=== PATIENT | female | born 1950 | race Caucasian/White ===

== ENCOUNTER → 2016-04-22 | Outpatient (CLI) | payer BC, MEDICARE ==
[2016-04-22 15:20] LABS: ALT 52 U/L (9-52); AST 36 U/L (14-36); Alkaline Phosphatase 114 U/L (38-126); Anion Gap 10 mmol/L; Blood Urea Nitrogen 13 mg/dL (7-17); Calcium 10.3 mg/dL (8.4-10.2); Carbon Dioxide 29 mmol/L (22-30); Chloride 102 mmol/L (98-107); Glucose 121 mg/dL (74-99); Non-African American GFR(MDRD) >60 (>60 ml/min/1.73 sqM); Sodium 141 mmol/L (137-145); Total Bilirubin 0.5 mg/dL (0.2-1.3); Total Protein 7.2 g/dL (6.3-8.2)
--- NOTE | 2016-04-22 15:21 | US ---
EXAMINATION TYPE: US thyroid st tissue head/neck DATE OF EXAM: 04/22/2016 3:04 PM COMPARISON: NONE CLINICAL HISTORY: US. hyperparathyroidism GLAND SIZE: Right Lobe: 4.0 x 1.5 x 1.4cm Overall Parenchyma: heterogenous Left Lobe: 4.7 x 2.0 x 1.6cm Overall Parenchyma: heterogeneous Isthmus Thickness: 0.3cm NODULES RIGHT: # of nodules measured on right: 0 LEFT: # of nodules measured on left: 0 ISTHMUS: # of nodules measured in the isthmus: 0 Bilateral neck scanned, no abnormal lymphadenopathy noted. IMPRESSION: No distinct nodularity appreciated at this time. SONOGRAPHIC PATTERNS, ESTIMATED MALIGNANCY RISK AND FNA GUIDANCE FOR THYROID NODULES Sonographic Pattern: Benign Ultrasound Features: Purely Cystic Nodules (No Solid Component) Estimated Risk Of Malignancy, %: <1 FNA Size Cutoff (Largest Dimension): No Biopsy Sonographic Pattern: Very Low Suspicion Ultrasound Features: Spongiform Or Partially Cystic Nodules Without Any Of The Sonographic Features Described In Low, Inte rmediate Or High Suspicion Patterns. Estimated Risk Of Malignancy, %: <3 FNA Size Cutoff (Largest Dimension): Recommend FNA At > 2cm Or Observation Without FNA Sonographic Pattern: Low Suspicion Ultrasound Features: Isoechoic Or Hyperechoic Solid Nodule, Or Partially Cystic Nodule With Eccentric Solid Areas, Without Microcalcification, Irregular Margin Or Ete, Or Taller Than Wide Shape. Estimated Risk Of Malignancy, %: 5-10 FNA Size Cutoff (Largest Dimension): Recommend FNA At > 1.5cm Sonographic Pattern: Intermediate Suspicion Ultrasound Features: Hypoechoic Solid Nodule With Smooth Margins Without Microcalcifications, Ete, Or Taller Than Wide Sha pe. Estimated Risk Of Malignancy, %: 10-20 FNA Size Cutoff (Largest Dimension): Recommend FNA At > 1cm Sonographic Pattern: High Suspicion Ultrasound Features: Solid Hypoechoic Nodule Or Solid Hypoechoic Component Of A Partially Cystic Nodule With One Or More O f The Following Features: Irregular Margins (Infiltrative, Microlobulated), Microcalcifications, Tall er Than Wide Shape, Rim Calcifications With Small Extrusive Soft Tissue Component, Evidence Of Ete Estimated Risk Of Malignancy, %: >70-90 FNA Size Cutoff (Largest Dimension): Recommend FNA At > 1cm
== END | disposition home or self-care (01) ==
LOC: RADUSWWP 14:21
PROVIDERS: ATTEND Internal Medicine Endocrinology, Diabetes & Metabolism
DX: E21.0 Primary hyperparathyroidism (principal); R53.83 Other fatigue
CPT/HCPCS: 76536; 77063; 80053; 82306; 83970; 84443

== ENCOUNTER → 2016-04-22 | Outpatient (CLI) | payer MEDICARE, BC ==
--- NOTE | 2016-04-24 08:20 | MM ---
Reason for exam: screening (asymptomatic). Last mammogram was performed 4 years and 7 months ago. History: Patient had first child at age 34. Family history of breast cancer in maternal grandmother and premenopausal breast cancer in mother. Benign left breast needle localization of the left breast, April 02, 2011. Physical Findings: A clinical breast exam by your physician is recommended on an annual basis and results should be correlated with mammographic findings. MG 3D Screening Mammo W/Cad Bilateral CC and MLO view(s) were taken. Prior study comparison: March 29, 2014, mammogram, performed at [facility]. March 17, 2012, mammogram, performed at [facility]. October 02, 2011, left diagnostic mammogram w/CAD. March 05, 2011, mammogram, performed at [facility]. February 27, 2010, mammogram, performed at [facility]. The breast tissue is almost entirely fat. No significant changes when compared with prior studies. ASSESSMENT: Benign, BI-RAD 2 RECOMMENDATION: Routine screening mammogram of both breasts in 1 year.
== END | disposition home or self-care (01) ==
LOC: RADMAMWWP 14:42
PROVIDERS: ATTEND Family Medicine
DX: Z12.31 Encounter for screening mammogram for malignant neoplasm of breast (principal)
CPT/HCPCS: 77052; 77063; G0202

== ENCOUNTER → 2016-05-30 | Outpatient (CLI) | payer MEDICARE ==
--- NOTE | 2016-05-30 15:51 | NM ---
EXAMINATION TYPE: NM parathyroid w/spect DATE OF EXAM: 05/30/2016 3:44 PM COMPARISON: NONE HISTORY: Hyperparathyroidism TECHNIQUE: Following administration of 26.5 mCi Tc99m Sestamibi. Anterior projection images of the neck and ches t were obtained 10 minutes and 3 hours post injection. SPECT images of the neck and chest were obtai surjit and reconstructed in three axes. FINDINGS: Thyroid tracer washout: Delayed images demonstrate near-complete tracer washout from the thyroid. Parathyroid uptake: None. The two-hour delayed images do not demonstrate any focal abnormal persisten t uptake in the region of the parathyroid glands to suggest parathyroid adenoma. Normal uptake: There is physiological tracer uptake in the myocardium, liver, salivary glands, and th yroid gland. IMPRESSION: Normal parathyroid imaging study. No evidence for mediastinal uptake to suggest mediastinal parathyro id adenoma
== END | disposition home or self-care (01) ==
LOC: RADNMMAIN 11:15
PROVIDERS: ATTEND Internal Medicine Endocrinology, Diabetes & Metabolism
DX: E21.0 Primary hyperparathyroidism (principal)
CPT/HCPCS: 78071; A9500

== ENCOUNTER → 2016-06-17 | Outpatient (CLI) | payer MEDICARE ==
[2016-06-17 14:29] LABS: Calcium 10.3 mg/dL (8.4-10.2)
== END | disposition home or self-care (01) ==
LOC: LABWHC1 13:40
PROVIDERS: ATTEND Surgery
DX: E21.3 Hyperparathyroidism, unspecified (principal)
CPT/HCPCS: 36415; 82310; 83970; 84439; 84443; 84481

== ENCOUNTER 2016-07-30 08:23 | Inpatient (IN) | payer MEDICARE ==
[2016-07-26 15:39] VITALS: BMI 26.6
[~2016-07-30 08:23] MED LIST: DEXAMETHASONE SOD PHOSPHATE 10 MG/ML 1 ML VIAL IV ONE; HYDROmorphone 1 MG/ML 1 ML SYRINGE IVP PRN; LACTATED RINGERS 1,000 ML IV SCH; MIDAZOLAM 2 MG/2 ML VIAL IV PRN; ONDANSETRON 4 MG/2 ML VIAL IVP ONE; Pre Op ABX Message 1 EACH MISC MISCELLANE ONE
[2016-07-30] MEDS ORDERED: HEPARIN SODIUM,PORCINE 5,000 UNIT/ML 1 ML VIAL SQ ONE (08:39)
[2016-07-30] MEDS ORDERED: LIDOCAINE 1% 20 ML VIAL (10MG/ML) FOR IV START INTRADERMA ONE (09:21)
[2016-07-30] MEDS ORDERED: LIDOCAINE 1% INJ 10MG/ML (20 ML MDV) ONE (09:49)
[2016-07-30] MEDS ORDERED: SUCCINYLCHOLINE CHLORIDE 100 MG/5 ML SYR IV ONE (09:49)
[2016-07-30] MEDS ORDERED: fentaNYL (PF) 50 MCG/ML 2 ML AMP ONE (09:49)
[2016-07-30] MEDS ORDERED: MIDAZOLAM 2 MG/2 ML VIAL ONE (09:49)
[2016-07-30] MEDS ORDERED: PROPOFOL 10 MG/ML 20 ML VIAL IV ONE (09:49)
[2016-07-30] MEDS ORDERED: SODIUM CHLORIDE 0.9% 50 ML with ceFAZolin 2,000 MG IV ONE ×2 (10:13)
[2016-07-30] MEDS ORDERED: GELATIN SPONGE,ABSORB (LARGE) 1 EACH SPONGE TOPICAL ONE (11:33)
[2016-07-30] MEDS ORDERED: THROMBIN (BOVINE) 5,000 UNIT VIAL TOPICAL ONE (11:33)
[2016-07-30] MEDS ORDERED: LACTATED RINGERS 1,000 ML IV ONE (11:52)
[2016-07-30] MEDS ORDERED: HYDROcodone/APAP 5-325MG 1 EACH TAB PO PRN (11:57)
[2016-07-30] MEDS ORDERED: NALOXONE 0.4 MG/ML 1 ML VIAL IV PRN (11:57)
[2016-07-30] MEDS ORDERED: ONDANSETRON 4 MG/2 ML VIAL IVP PRN (11:57)
--- NOTE | 2016-07-30 11:57 | P.OP ---
Date of Procedure: 07/30/16 Preoperative Diagnosis: Primary hyperparathyroidism Postoperative Diagnosis: Same, right inferior parathyroid adenoma versus hyperplasia Procedure(s) Performed: Neck exploration resection right inferior parathyroid, biopsy right superior parathyroid/biopsy area of left inferior parathyroid and left superior parathyroid Anesthesia: LUIS CARLOS Surgeon: Latanya Lundberg Bioinformatics Specialist #1: Kimmy Blevins Estimated Blood Loss (ml): 10 IV fluids (ml): 1,000 Urine output (ml): 75 Pathology: other (5. Right superior and inferior, left superior and inferior biopsy) Condition: stable Disposition: PACU Indications for Procedure: Patient with elevated calcium and elevated parathyroid hormone, believed to have primary hyperparathyroidism Operative Findings: Enlarged right inferior parathyroid, questionable enlarged right superior parathyroid, removed. Left inferior and superior parathyroid Description of Procedure: The patient was taken to the operating room and following induction of general anesthesia she was placed in the beachchair position. Between her scapulas. The neck was prepped and draped in a sterile fashion. Prior to this a Yusuf catheter was inserted. Prior to prepping and draping the neck and stimulator was placed. A collar incision was made and carried through the skin and subcutaneous tissue. This was carried through the platysma. Superior and inferior skin flaps were developed. The patient was noted large external jugular veins. These were inflated. The strap muscles were in the midline. The right lobe of the thyroid was approached initially. It was somewhat vascular however we were able to retract this anteriorly. Was necessary to divide several small vessels going into the inferior pole area as well as the superior pole area to retract the gland medially. The recurrent laryngeal nerve was clearly seen and preserved. There was believed to be the right inferior parathyroid was identified this was approximately 1 cm in size and consistent with a brown tumor. This was resected and sent for frozen section analysis which was consistent with hypercellular parathyroid possibly consistent with adenoma. This was contiguous with what appeared to be the superior pole parathyroid this area was also removed. This area was consistent as well with hypercellular parathyroid. No other nodules of concern were identified on the right side. At this time the left side was approached. The lobe was rotated medially. The area of the inferior parathyroid gland was identified and a biopsy was obtained. Superior to be consistent with parathyroid tissue however it was felt that the parathyroid was very small and was seen. No nodules of concern were identified. The superior parathyroid was identified and biopsy was obtained this was small and appeared to be normal in size and the biopsy was consistent with normal parathyroid tissue. No other nodules of concern were identified. The recurrent laryngeal nerve on the left was seen and preserved. The size of the neck was well irrigated and a small amount of oozing was identified on the thyroid gland. This was cauterized and a piece of Gelfoam with thrombin was placed. No further oozing was identified. After we were assured that hemostasis was attained a small Malu drain was placed. The strap muscles were closed in the midline using a Vicryl suture. This is followed by closure of the platysma with 3-0 Vicryl suture. The skin was closed using a 4-0 Monocryl and the drain was secured with a nylon suture. The patient tolerated the procedure in stable condition. All instrument and sponge counts were correct at the end of the case.
[2016-07-30] MEDS: HEPARIN SODIUM,PORCINE 5,000 UNIT/ML 1 ML VIAL SQ SCH (16:28)
[2016-07-30] MEDS: SODIUM CHLORIDE 0.45% 1,000 ML IV SCH (16:55)
[2016-07-30] MEDS: HYDROmorphone 1 MG/ML 1 ML SYRINGE IV PRN ×2 (18:14→22:12)
[2016-07-30] MEDS ORDERED: CYCLOBENZAPRINE 10 MG TAB PO PRN (21:11)
[2016-07-30] MEDS: POTASSIUM CHLORIDE ER 20 MEQ TAB.ER PO SCH (22:03)
[2016-07-30] MEDS: PRAVASTATIN SODIUM 20 MG TAB PO SCH (22:03)
[2016-07-30] MEDS: FAMOTIDINE 20 MG TAB PO SCH (22:04)
[2016-07-31] MEDS ORDERED: CALCIUM CARB-VIT D 500MG-200UN 1 EACH TAB PO SCH ×2 (00:15→12:30)
[2016-07-31] MEDS: HEPARIN SODIUM,PORCINE 5,000 UNIT/ML 1 ML VIAL SQ SCH ×4 (01:18→23:39)
[2016-07-31] MEDS: SODIUM CHLORIDE 0.45% 1,000 ML IV SCH ×4 (01:29→21:25)
[2016-07-31] MEDS: HYDROmorphone 1 MG/ML 1 ML SYRINGE IV PRN ×2 (03:57→07:38)
[2016-07-31 04:50] LABS: Calcium 7.9 mg/dL (8.4-10.2); Magnesium 1.8 mg/dL (1.6-2.3)
[2016-07-31] MEDS: BUTALB/APAP/CAFF 50-325-40MG TAB PO PRN ×3 (08:56→23:38)
[2016-07-31] MEDS: FAMOTIDINE 20 MG TAB PO SCH ×2 (08:57→21:26)
[2016-07-31] MEDS: POTASSIUM CHLORIDE ER 20 MEQ TAB.ER PO SCH ×2 (09:03→21:26)
[2016-07-31] MEDS: PARoxetine 20 MG TAB PO SCH (09:03)
[2016-07-31] MEDS: clonazePAM 0.5 MG TAB PO PRN ×2 (10:34→21:31)
[2016-07-31] MEDS: PREGABALIN 75 MG CAP PO SCH ×2 (10:34→23:24)
[2016-07-31 12:47] LABS: Calcium 8.1 mg/dL (8.4-10.2)
[2016-07-31] MEDS: CALCIUM CARB-VIT D 500MG-200UN 1 EACH TAB PO SCH ×2 (13:34→18:43)
--- NOTE | 2016-07-31 15:16 | P.PN ---
Subjective 66-year-old female being seen postop with no new postop events. Patient is status post on July 30 Neck exploration resection right inferior parathyroid, biopsy right superior parathyroid/biopsy area of left inferior parathyroid and left superior parathyroid. for treatment of primary hyperparathyroidism. Patient has been up in the room dressing has remained dry the drain was removed this morning Objective - Vital Signs Vital signs: Vital Signs Temp 99.8 F H 07/31/16 13:00 Pulse 104 H 07/31/16 13:00 Resp 16 07/31/16 13:00 BP 139/69 07/31/16 13:00 Pulse Ox 93 L 07/31/16 13:00 Intake & Output 07/30/16 07/31/16 07/31/16 18:59 06:59 18:59 Intake Total 1620 Output Total 85 600 Balance 1535 -600 Intake: IV 1500 Oral 120 Output: Urine 75 600 Estimated Blood Loss 10 Other: Voiding Method Bedside Commode Toilet # Voids 1 0 1 - Exam GENERAL APPEARANCE: 66-year-old female patient is alert, oriented, in no acute distress. VITAL SIGNS: Reviewed HEENT: Head is normocephalic and atraumatic. Pupils are equal and reactive. The nares are patent. Oropharynx is clear without lesions. NECK: Supple without lymphadenopathy. Traches midline. Dressing dry at surgical site HEART: S1, S2. Regular rate and rhythm. LUNGS: No crackles or wheezes are heard. ABDOMEN: Soft, nontender, nondistended with good bowel sounds. No peritoneal signs. No palpable organomegaly or masses. EXTREMITIES: Normal skin color and turgor. No cyanosis, rash, ulceration, clubbing or edema. Radial pedal pulses are 2/4 bilaterally. NEUROLOGICAL: No focal deficits. Strength and sensation are grossly intact. - Labs Labs: Abnormal Lab Results - Last 24 Hours (Table) 07/30/16 07/31/16 07/31/16 Range/Units 12:34 04: 11:47 Calcium 7.9 L 8.1 L (8.4-10.2) mg/dL PTH Intact 10.7 L (14.0-72.0) pg/mL Assessment and Plan Plan: Impression Primary hyperparathyroidism Postop July 30 Neck exploration resection right inferior parathyroid, biopsy right superior parathyroid/biopsy area of left inferior parathyroid and left superior parathyroid Elevated calcium elevated parathyroid an elevated parathyroid likely due to primary parathyroidism Plan Repeat a calcium 8:00 tonight and 6 AM tomorrow Endocrinology eval pending Dr. Meade Resume home meds as appropriate Prepped for probable discharge in the next 24 hours The above dictated assessment and findings were discussed with dr Taqueria Agrawal. Impression and the plan of care have been dictated as directed. Carlie Swain nurse practitioner acting as a scribe for Dr. Heath
--- NOTE | 2016-07-31 16:41 | P.CNEND ---
History of Present Illness Consult date: 07/31/16 History of present illness: Patient is 66-year-old female who had parathyroidectomy done yesterday. Patient had primary hyperparathyroidism. Patient had one parathyroid glands removed. She denies any numbness tingling. No history of muscle cramps. No history of hypocalcemia since surgery. Patient is on oral calcium supplementation currently No history of hoarseness of voice. Patient does complain of mild pain in the anterior part of the neck at her incision site Review of Systems Constitutional: Denies chills, Denies fever Eyes: denies blurred vision, denies pain Cardiovascular: Denies chest pain, Denies shortness of breath Respiratory: Denies cough Gastrointestinal: Denies abdominal pain, Denies diarrhea, Denies nausea, Denies vomiting Genitourinary: Denies dysuria, Denies hematuria Musculoskeletal: Denies myalgias Integumentary: Denies pruritus, Denies rash Neurological: Denies numbness, Denies weakness Psychiatric: Denies anxiety, Denies depression Endocrine: Denies fatigue, Denies weight change Past Medical History Past Medical History: CVA/TIA, Eye Disorder, Fibromyalgia, GERD/Reflux, Hypertension, Memory Impairment, Osteoarthritis (OA), Thyroid Disorder Additional Past Medical History / Comment(s): MIGRAINES. POSS TIA IN PAST. PARATHYROID ADENOMA. OSTEOPOROSIS. OCC VERTIGO. MILD MEMORY IMPAIRMENT AT TIMES. WALKS W/ CANE. VARICOSE VEINS. fatigue History of Any Multi-Drug Resistant Organisms: None Reported Past Surgical History: Hysterectomy, Tonsillectomy, Tubal Ligation Additional Past Surgical History / Comment(s): SURG LT EYE 1974 FOR DB VISION. EXC CATARACTS YAYO. COLONOSCOPY. Past Anesthesia/Blood Transfusion Reactions: No Reported Reaction Past Psychological History: Anxiety, Depression Smoking Status: Current every day smoker Past Alcohol Use History: Rare Additional Past Alcohol Use History / Comment(s): SMOKES, WAS UP TO 2 PPD, NOW 1 /2 PPD, BEGAN AGE 27. Past Drug Use History: None Reported - Past Family History Mother Family Medical History: Cancer Additional Family Medical History / Comment(s): breast Father Family Medical History: Deep Vein Thrombosis (DVT) Medications and Allergies Home Medications Medication Instructions Recorded Confirmed Type Alendronate Sodium [Fosamax] 70 mg PO WE 04/04/16 07/30/16 History Butalb/APAP/Caff 50-325-40Mg 1 - 2 tab PO Q6H PRN 04/04/16 07/30/16 History [Fioricet 50-325-40] Clopidogrel [Plavix] 75 mg PO DAILY 04/04/16 07/30/16 History Cyclobenzaprine [Flexeril] 10 mg PO TID PRN 04/04/16 07/30/16 History PARoxetine HCL [Paxil] 60 mg PO DAILY 04/04/16 07/30/16 History Potassium Chloride [Klor-Con 20] 20 meq PO BID 04/04/16 07/30/16 History Pravastatin Sodium [Pravachol] 20 mg PO HS 04/04/16 07/30/16 History Pregabalin [Lyrica] 75 mg PO BID 04/04/16 07/30/16 History Ranitidine HCl [Zantac] 150 mg PO BID 04/04/16 07/30/16 History Vitamin B Complex 1 cap PO DAILY 04/04/16 07/30/16 History clonazePAM [KlonoPIN] 0.5 - 1 mg PO QID PRN 04/04/16 07/30/16 History traMADol HCL [Ultram] 50 mg PO Q8H PRN 04/04/16 07/30/16 History Ergocalciferol (Vitamin D2) 50,000 unit PO WE 06/14/16 07/30/16 History [Vitamin D2] Vitamin C (Included W/ Vitamin B 1 tab PO DAILY 06/14/16 07/30/16 History Complex) Allergies Allergy/AdvReac Type Severity Reaction Status Date / Time ammonium alum [From Carmex] Allergy Swelling Verified 07/30/16 13:32 camphor [From Carmex] Allergy Swelling Verified 07/30/16 13:32 menthol [From Carmex] Allergy Swelling Verified 07/30/16 13:32 oxybutynin Allergy Unknown Verified 07/30/16 13:32 phenol [From Carmex] Allergy Swelling Verified 07/30/16 13:32 salicylic acid [From Carmex] Allergy Swelling Verified 07/30/16 13:32 Physical Exam Vitals: Vital Signs Temp Pulse Pulse Resp BP BP Pulse Ox 07/31/16 13:00 99.8 F H 104 H 16 139/69 93 L 07/31/16 08:07 98.1 F 106 H 24 131/75 91 L 07/31/16 08:00 102 H 07/31/16 04:07 98.6 F 102 H 16 93 L 07/31/16 00:00 97.4 F L 100 16 112/74 92 L 07/30/16 20:50 96.8 F L 106 H 16 132/73 93 L 07/30/16 18:54 111 H 94 L 07/30/16 17:49 112 H 16 123/83 92 L 07/30/16 16:55 115 H 20 124/86 92 L Intake and Output 07/31/16 07/31/16 07/31/16 06:59 14:59 22:59 Output Total 600 Balance -600 Output: Urine 600 Other: Voiding Method Toilet # Voids 1 - Constitutional General appearance: no acute distress - EENT Eyes: EOMI - Respiratory Respiratory: bilateral: CTA - Cardiovascular Heart sounds: normal: S1, S2 - Gastrointestinal General gastrointestinal: no organomegaly, soft, no tenderness - Neurologic Neurologic: CNII-XII intact - Psychiatric Psychiatric: A&O x's 3 Results - Labs Abnormal Lab Results - Last 24 Hours (Table) 07/30/16 07/31/16 07/31/16 Range/Units 12:34 04:19 11:47 Calcium 7.9 L 8.1 L (8.4-10.2) mg/dL PTH Intact 10.7 L (14.0-72.0) pg/mL Diabetes panel 07/30/16 07/31/16 07/31/16 Range/Units 20:05 04:19 11:47 Calcium 8.4 7.9 L 8.1 L (8.4-10.2) mg/dL Albumin 3.7 (3.5-5.0) g/dL Calcium panel 07/30/16 07/31/16 07/31/16 Range/Units 20:05 04:19 11:47 Calcium 8.4 7.9 L 8.1 L (8.4-10.2) mg/dL Phosphorus 4.0 (2.5-4.5) mg/dL Albumin 3.7 (3.5-5.0) g/dL Pituitary panel 07/30/16 07/31/16 07/31/16 Range/Units 20:05 04:19 11:47 Calcium 8.4 7.9 L 8.1 L (8.4-10.2) mg/dL Adrenal panel 07/30/16 07/31/16 07/31/16 Range/Units 20:05 04:19 11:47 Calcium 8.4 7.9 L 8.1 L (8.4-10.2) mg/dL Albumin 3.7 (3.5-5.0) g/dL Assessment and Plan (1) Parathyroid adenoma Status: Acute (2) Hypocalcemia Status: Acute Plan: Patient is status post parathyroidectomy. One parathyroid gland was removed. Patient does not have any clinical signs or symptoms of hypocalcemia Repeat potassium level this afternoon was normal PTH levels postoperatively were slightly below normal limit. This was most likely due to initial postoperative period. Check PTH level and CMP in the morning Patient is recovering very well from surgery Continue oral calcium for now. May decrease it to twice a day instead of 3 times daily. Take vitamin D at least 2000iu daily Thank you for letting me participate in this patient's care. We'll follow-up on labs
[2016-07-31] MEDS ORDERED: NON-FORMULARY DRUG (Alendronate Sodium [Fosamax] 70 MG) PO SCH (21:11)
[2016-07-31] MEDS: PRAVASTATIN SODIUM 20 MG TAB PO SCH (21:27)
[2016-07-31] MEDS ORDERED: RX INFO: IV CONTRAST WAS GIVEN 1 EACH MISC MISCELLANE PRN (22:02)
--- NOTE | 2016-07-31 22:54 | CT ---
EXAMINATION TYPE: CT chest angio for PE DATE OF EXAM: 07/31/2016 10:46 PM COMPARISON: NONE HISTORY: shortness of breath post op thyroidectomy. CT DLP: 272.4 mGycm Automated exposure control for dose reduction was used. CONTRAST: CT Chest for pulmonary embolism performed with with IV Contrast, patient injected with 100 mL of Omni paque 300. There are 3-D post processed images. FINDINGS: There is patchy infiltrate and atelectasis at the lung bases. There is small left pleural effusion. There is normal contrast opacification of the pulmonary arteries. There are no filling defects. There is no sign of aortic aneurysm or dissection. There is a small pericardial effusion. Heart size is no rmal. There is no mediastinal adenopathy. There are no hilar masses. The bony thorax appears intact. IMPRESSION: No evidence of pulmonary embolism. Basilar pulmonary infiltrates and atelectasis. Small pericardial e ffusion and small left pleural effusion. There is probably fatty infiltration of the liver. 2 cm low- density right adrenal nodule is seen that is probably a myelolipoma.
[2016-08-01] MEDS: SODIUM CHLORIDE 0.45% 1,000 ML IV SCH ×2 (01:44→05:28)
[2016-08-01] MEDS: BUTALB/APAP/CAFF 50-325-40MG TAB PO PRN ×3 (05:28→22:47)
--- NOTE | 2016-08-01 07:59 | CONS ---
DATE OF CONSULTATION: 07/31/2016 REASON FOR CONSULTATION: Medical management requested by Dr. Elif Lundberg. CONSULTATION: This is a pleasant 66-year-old patient of Dr. Vu who I saw earlier in consultation this afternoon. Patient's chronic stable medical conditions include fibromyalgia, GERD, hyperlipidemia, osteoarthritis, osteoporosis. Patient has primary hyperparathyroidism and underwent resection of right inferior parathyroid. Postprocedure, patient has a dressing in the neck. Some irritation is present, has been tolerating a soft diet. Has been out of bed. No chest pain, shortness of breath. No nausea, vomiting. REVIEW OF SYSTEMS: CONSTITUTIONAL: None. HEENT: As above. RESPIRATORY: None. CARDIOVASCULAR: None. GASTROINTESTINAL: None. GENITOURINARY: None. MUSCULOSKELETAL: Aches and pains in the joints. DERMATOLOGICAL: None. HEMATOLOGICAL: None. LYMPHATIC: None. PSYCHIATRY: None. NEUROLOGICAL: None. PAST MEDICAL HISTORY: Remote history of stroke, fibromyalgia, GERD, hypertension, some memory impairment, osteoarthritis, hyperparathyroidism, migraines, parathyroid adenoma, osteoporosis, varicose veins. PAST SURGICAL HISTORY: Hysterectomy, tonsillectomy, tubal ligation, surgery on the left eye for double vision, bilateral cataract surgery. SOCIAL HISTORY: Anxiety, depression. Patient started smoking at age of 27, was up to 2 packs a day and now down to 1/2 pack a day. Alcohol none. FAMILY HISTORY: Breast cancer HOME MEDICATIONS: 1. Ultram 50 mg q.8 p.r.n. 2. Klonopin p.r.n. 3. Zantac 150 mg b.i.d. 4. Lyrica 75 mg p.o. b.i.d. 5. Pravachol 20 mg q.h.s. 6. Potassium 20 mEq p.o. b.i.d. 7. Paxil 60 mg p.o. daily. 8. Vitamin D2 50,000 units p.o. on Friday. 9. Flexeril 10 mg p.o. daily p.r.n. 10. Plavix 75 mg p.o. daily. 11. Fioricet 1 to 2 tablets q.6 p.r.n. 12. Fosamax 70 mg p.o. on Wednesdays. ALLERGIES: AMMONIUM, CAMPHOR, OXYBUTYNIN, PHENOL, SALICYLATE On examination, temperature 98.9, pulse 103, respiration 18, blood pressure 130/72, pulse ox 93% on 2 liters. GENERAL APPEARANCE: Average built, sitting up not in distress. EYES: Pupils equal. Conjunctivae normal. HEENT: Oral cavity normal. NECK: Dressing over the surgical site. JVD not raised. RESPIRATORY: Effort normal. Lungs, slightly decreased breath sounds. CARDIOVASCULAR: First and second sounds normal. No edema. ABDOMEN: Soft, nontender. Liver and spleen not palpable. LYMPHATIC: No lymph node palpable in neck or axillae. PSYCHIATRY: Alert and oriented x3. Mood and affect normal. INVESTIGATIONS: Calcium levels are noted. Phosphorus 4. PTH intake, was 10.7. ASSESSMENT: 1. Primary hyperparathyroidism leading to surgical resection of right inferior parathyroid gland. 2. Chronic fibromyalgia. 3. Gastroesophageal reflux disease. 4. Essential hypertension. 5. Primary osteoarthritis. 6. Anxiety, not otherwise specified. PLAN: Care was discussed with the patient. Patient's home medications are resumed. Dr. Meade from endocrinology is following the patient's calcium levels. Subcu heparin for DVT prophylaxis. I am somewhat concerned about the patient's pulse ox about why it is running low. Will proceed to do a CT scan of the chest to rule out PE.
[2016-08-01] MEDS: clonazePAM 0.5 MG TAB PO PRN ×2 (09:12→20:55)
[2016-08-01] MEDS: HEPARIN SODIUM,PORCINE 5,000 UNIT/ML 1 ML VIAL SQ SCH ×2 (09:13→16:13)
[2016-08-01] MEDS: CALCIUM CARB-VIT D 500MG-200UN 1 EACH TAB PO SCH ×3 (09:13→20:49)
[2016-08-01] MEDS: POTASSIUM CHLORIDE ER 20 MEQ TAB.ER PO SCH ×2 (09:15→20:49)
[2016-08-01] MEDS: FAMOTIDINE 20 MG TAB PO SCH ×2 (09:15→20:49)
[2016-08-01] MEDS: PARoxetine 20 MG TAB PO SCH (09:16)
[2016-08-01] MEDS: PREGABALIN 75 MG CAP PO SCH ×2 (09:25→22:51)
--- NOTE | 2016-08-01 15:21 | P.PN ---
Subjective 66-year-old female sitting up in bed dressing to the surgical site on the neck is dry. Did note the patient's pulse ox last evening dropped to 83 the patient did undergo CAT scan of the chest it showed no evidence of a pulmonary emboli. It did show bilateral pulmonary infiltrates atelectasis. With a small left pleural effusion. Patient has remained afebrile currently the sats on 2 L are 94%. The calcium level was 9 last evening this morning 7.6 patient continues to deny any numbness tingling sensation no muscle cramps. There was no history of hypocalcemia before surgery. No hoarseness to the voice. Patient does report having some mild anterior neck pain to continue with the oral calcium. Take vitamin D at least 2000 units daily Patient is status post on July 30 Neck exploration resection right inferior parathyroid, biopsy right superior parathyroid/biopsy area of left inferior parathyroid and left superior parathyroid. for treatment of primary hyperparathyroidism. Patient has been up in the room dressing has remained dry the drain was removed this morning Objective - Vital Signs Vital signs: Vital Signs Temp 98.9 F 08/01/16 08:05 Pulse 85 08/01/16 08:05 Resp 16 08/01/16 08:05 BP 126/69 08/01/16 08:05 Pulse Ox 93 L 08/01/16 08:05 Intake & Output 07/31/16 08/01/16 08/01/16 18:59 06:59 18:59 Output Total 600 Balance -600 Output: Urine 600 Other: Voiding Method Toilet Toilet # Voids 2 2 - Exam GENERAL APPEARANCE: 66-year-old female patient is alert, oriented, in no acute distress. VITAL SIGNS: Reviewed HEENT: Head is normocephalic and atraumatic. Pupils are equal and reactive. The nares are patent. Oropharynx is clear without lesions. NECK: Supple without lymphadenopathy. Traches midline. Dressing dry at surgical site HEART: S1, S2. Regular rate and rhythm. LUNGS: No crackles or wheezes are heard. ABDOMEN: Soft, nontender, nondistended with good bowel sounds. No peritoneal signs. No palpable organomegaly or masses. EXTREMITIES: Normal skin color and turgor. No cyanosis, rash, ulceration, clubbing or edema. Radial pedal pulses are 2/4 bilaterally. NEUROLOGICAL: No focal deficits. Strength and sensation are grossly intact. - Labs Labs: Abnormal Lab Results - Last 24 Hours (Table) 07/31/16 07/31/16 08/01/16 Range/Units 11:47 11:47 06:37 Calcium 8.1 L 7.6 L (8.4-10.2) mg/dL PTH Intact 8.1 L (14.0-72.0) pg/mL Assessment and Plan Plan: Impression Primary hyperparathyroidism Postop July 30 Neck exploration resection right inferior parathyroid, biopsy right superior parathyroid/biopsy area of left inferior parathyroid and left superior parathyroid Elevated calcium elevated parathyroid an elevated parathyroid likely due to primary parathyroidism Current every day smoker chronic nicotine dependency greater than a 20 year history Plan Repeat a calcium 8:00 tonight and 6 AM tomorrow call to Dr. Agrawal We'll start aerosol bronchodilators Patient has been counseled about stop smoking cigarettes Resume home meds as appropriate Prepped for probable discharge in the next 24 hours The above dictated assessment and findings were discussed with dr Taqueria Agrawal. Impression and the plan of care have been dictated as directed. Carlie Swain nurse practitioner acting as a scribe for Dr. Heath
[2016-08-01] MEDS: IPRATROPIUM-ALBUTEROL 3 ML NEB INHALATION SCH ×2 (18:42→19:05)
[2016-08-01 20:23] LABS: Calcium 7.8 mg/dL (8.4-10.2)
[2016-08-01] MEDS: PRAVASTATIN SODIUM 20 MG TAB PO SCH (20:49)
[2016-08-02] MEDS: HEPARIN SODIUM,PORCINE 5,000 UNIT/ML 1 ML VIAL SQ SCH ×2 (00:35→09:45)
[2016-08-02] MEDS: SODIUM CHLORIDE 0.45% 1,000 ML IV SCH (01:06)
[2016-08-02 07:43] LABS: Calcium 7.7 mg/dL (8.4-10.2)
[2016-08-02 08:57] VITALS: BP 122/73; PULSE 96; RESP 20; TEMP 97.7
[2016-08-02] MEDS: IPRATROPIUM-ALBUTEROL 3 ML NEB INHALATION SCH ×2 (09:35→13:43)
[2016-08-02] MEDS: PARoxetine 20 MG TAB PO SCH (09:45)
[2016-08-02] MEDS: POTASSIUM CHLORIDE ER 20 MEQ TAB.ER PO SCH (09:46)
[2016-08-02] MEDS: clonazePAM 0.5 MG TAB PO PRN (09:46)
[2016-08-02] MEDS: CALCIUM CARB-VIT D 500MG-200UN 1 EACH TAB PO SCH (09:47)
[2016-08-02] MEDS: FAMOTIDINE 20 MG TAB PO SCH (09:47)
--- NOTE | 2016-08-02 10:45 | P.DS ---
Providers Date of admission: 08/01/16 08:20 Expected date of discharge: 08/02/16 Attending physician: Latanya Lundberg Consults: 07/30/16 12:00 Consult Physician Routine Consulting Provider: Macrina Meade Consult Reason/Comments: hyperparathyroid Do you want consulting provider notified?: Yes 07/30/16 12:42 Consult Physician Routine Consulting Provider: Pako Gregorio Consult Reason/Comments: medical Do you want consulting provider notified?: Yes Primary care physician: [facility] Course: Patient is status post on July 30 Neck exploration resection right inferior parathyroid, biopsy right superior parathyroid/biopsy area of left inferior parathyroid and left superior parathyroid. for treatment of primary hyperparathyroidism. Patient was seen by endocrinology Dr. Meade. Patient is on oral calcium supplements. Patient had no history of hypocalcemia since surgery. Patient was not experiencing any hoarseness of breath. There was no face numbness itching patient did not have any clinical signs or symptoms of hypocalcemia. Patient was felt to be stable and appropriate to be discharged. Patient was instructed to continue oral calcium as directed and taking vitamin D at least 2000 IUs daily The calcium level at 7 AM on the was 7.7. At 8:00 the following night was 7.8 patient would be seen in Dr. Meade's office head buyer tobacco on August 08 at 9 AM Impression discharge diagnosis Primary hyperparathyroidism Postop July 30 Neck exploration resection right inferior parathyroid, biopsy right superior parathyroid/biopsy area of left inferior parathyroid and left superior parathyroid Elevated calcium elevated parathyroid an elevated parathyroid likely due to primary parathyroidism Current every day smoker chronic nicotine dependency greater than a 20 year history The above dictated assessment and findings were discussed with dr Taqueria Agrawal. Impression and the plan of care have been dictated as directed. Carlie Swain nurse practitioner acting as a scribe for Dr. Heath Plan - Discharge Summary New Discharge Prescriptions: Calcium Carb-Vit D 500Mg-200Un [Oscal 500+D] 3 each PO TID-W/MEALS #270 tab Discharge Medication List Alendronate Sodium [Fosamax] 70 mg PO WE 04/04/16 [History] Butalb/APAP/Caff 50-325-40Mg [Fioricet 50-325-40] 1 - 2 tab PO Q6H PRN 04/04/16 [History] Clopidogrel [Plavix] 75 mg PO DAILY 04/04/16 [History] Cyclobenzaprine [Flexeril] 10 mg PO TID PRN 04/04/16 [History] PARoxetine HCL [Paxil] 60 mg PO DAILY 04/04/16 [History] Potassium Chloride [Klor-Con 20] 20 meq PO BID 04/04/16 [History] Pravastatin Sodium [Pravachol] 20 mg PO HS 04/04/16 [History] Pregabalin [Lyrica] 75 mg PO BID 04/04/16 [History] Ranitidine HCl [Zantac] 150 mg PO BID 04/04/16 [History] Vitamin B Complex 1 cap PO DAILY 04/04/16 [History] clonazePAM [KlonoPIN] 0.5 - 1 mg PO QID PRN 04/04/16 [History] traMADol HCL [Ultram] 50 mg PO Q8H PRN 04/04/16 [History] Ergocalciferol (Vitamin D2) [Vitamin D2] 50,000 unit PO WE 06/14/16 [History] Vitamin C (Included W/ Vitamin B Complex) 1 tab PO DAILY 06/14/16 [History] Calcium Carb-Vit D 500Mg-200Un [Oscal 500+D] 3 each PO TID-W/MEALS #270 tab [Rx] Follow up Appointment(s)/Referral(s): Macrina Meade MD [STAFF PHYSICIAN] - 08/08/16 9:00 am Latanya Lundberg MD [STAFF PHYSICIAN] - 1 Week Ambulatory/Diagnostic Orders: Comprehensive Metabolic Panel [LAB.AMB] Time Frame: 08/07/16, Location: Determined By Patient Activity/Diet/Wound Care/Special Instructions: On August 07 lab draw PTH with the results called to Dr. Bernardo Meade endocrinology and Dr. Heath Discharge Disposition: HOME SELF-CARE
[2016-08-02] MEDS: BUTALB/APAP/CAFF 50-325-40MG TAB PO PRN (11:08)
[2016-08-02] MEDS: PREGABALIN 75 MG CAP PO SCH (14:42)
--- NOTE | 2016-08-05 09:59 | PN ---
DATE OF SERVICE: 08/02/2016 PRESENTING COMPLAINT: Parathyroid surgery. INTERVAL HISTORY: This patient was seen by me on 08/02/2016. Doing better, up to the bathroom, tolerating a diet. Pain is controlled, very slight tingling in the feet. The nurses already informed Dr. Meade from endocrinology. Overall the patient is doing much better. Review of systems done for constitutional, cardiovascular, GI, pulmonary; relevant findings as above. Current medications are reviewed. On examination, temperature 97.7, pulse 96, respirations 20, blood pressure 120/73, pulse ox 90% on room air. GENERAL APPEARANCE: Sitting up, comfortable. EYES: Pupils equal. Conjunctivae normal. NECK: JVD not raised. Mass not palpable. RESPIRATORY: Effort normal. Lungs are clear. CARDIOVASCULAR: First and second sounds normal. No edema. ABDOMEN: Soft, nontender. Liver and spleen not palpable. NECK: Dressing over the operative site. INVESTIGATIONS: Calcium 7.5, hemoglobin 3.3. ASSESSMENT: 1. Primary hyperparathyroidism leading to surgical resection of the right inferior parathyroid gland. 2. Chronic fibromyalgia. 3. Gastroesophageal reflux disease. 4. Essential hypertension. 5. Primary osteoarthritis. 6. Anxiety, not otherwise specified. PLAN: Overall doing much better. Dr. Meade from endocrinology is following the patient's calcium level. Care was discussed with the patient. After discharge will follow with the family doctor. Thank you Dr. Elif Yates.
== END 2016-08-02 12:42 | disposition home or self-care (01) | DRG 626 ==
LOC: OR 08:23 → 6PED 11:47 → OR 08-01 08:19 → 6PED 08-01 08:20
PROVIDERS: ADMIT Surgery; ATTEND Surgery
PROC: 0GTL0ZZ Resection of Right Superior Parathyroid Gland, Open Approach (ICD-10-PCS; principal; 2016-07-30 09:30)
PROC: 0GBG0ZX Excision of Left Thyroid Gland Lobe, Open Approach, Diagnostic (ICD-10-PCS; principal; 2016-07-30 09:30)
PROC: 0GBR0ZX Excision of Parathyroid Gland, Open Approach, Diagnostic (ICD-10-PCS; principal; 2016-07-30 09:30)
PROC: 0GTN0ZZ Resection of Right Inferior Parathyroid Gland, Open Approach (ICD-10-PCS; principal; 2016-07-30 09:30)
DX: E21.0 Primary hyperparathyroidism (principal); J98.11 Atelectasis; I10 Essential (primary) hypertension; F32.9 Major depressive disorder, single episode, unspecified; D35.1 Benign neoplasm of parathyroid gland; E78.5 Hyperlipidemia, unspecified; F17.200 Nicotine dependence, unspecified, uncomplicated; F41.9 Anxiety disorder, unspecified; K21.9 Gastro-esophageal reflux disease without esophagitis; M19.91 Primary osteoarthritis, unspecified site; M79.7 Fibromyalgia; M81.0 Age-related osteoporosis without current pathological fracture; Z79.02 Long term (current) use of antithrombotics/antiplatelets; Z79.899 Other long term (current) drug therapy; Z86.73 Personal history of transient ischemic attack (TIA), and cerebral infarction without residual deficits
CPT/HCPCS: 36415; 71275; 80053; 82040; 82310; 83735; 83970; 84100; 85025; 88305; 88331; 94640; 99283

== ENCOUNTER 2016-08-02 18:54 | Emergency (ER) | payer MEDICARE ==
[2016-08-02 19:13] VITALS: RESP 18
--- NOTE | 2016-08-02 19:47 | ED ---
General Adult HPI - General Chief complaint: Recheck/Abnormal Lab/Rx Stated complaint: post op complications Time Seen by Provider: 08/02/16 19:05 Source: patient, RN notes reviewed Mode of arrival: ambulatory Limitations: no limitations - History of Present Illness Initial comments: This is a 66-year-old female presents emergency department with past medical history significant for arthritis and fibromyalgia as well as a recent thyroidectomy. Patient states she had a thyroidectomy and Friday and was released from the hospital 4 hours prior to arrival. Patient states she was told to come back of his any tingling sensation anywhere she states she had some tingling in her right leg and left hand. Patient states she had similar symptoms while she was in the hospital one time and apparently staff was not concerned and she was discharged home. Patient stated the tingling started again she did not call the surgeon. Patient denies any fever or chills. Patient denies any nausea vomiting. Patient denies any abdominal pain. Patient states she has a mild headache. Patient states though she has tingling she has no lack of sensation or lack of strength. - Related Data Home Medications Medication Instructions Recorded Confirmed Alendronate Sodium [Fosamax] 70 mg PO WE 04/04/16 08/02/16 Butalb/APAP/Caff 50-325-40Mg 1 - 2 tab PO Q6H PRN 04/04/16 08/02/16 [Fioricet 50-325-40] Clopidogrel [Plavix] 75 mg PO DAILY 04/04/16 08/02/16 Cyclobenzaprine [Flexeril] 10 mg PO TID PRN 04/04/16 08/02/16 PARoxetine HCL [Paxil] 60 mg PO DAILY 04/04/16 08/02/16 Potassium Chloride [Klor-Con 20] 20 meq PO BID 04/04/16 08/02/16 Pravastatin Sodium [Pravachol] 20 mg PO HS 04/04/16 08/02/16 Pregabalin [Lyrica] 75 mg PO BID 04/04/16 08/02/16 Ranitidine HCl [Zantac] 150 mg PO BID 04/04/16 08/02/16 Vitamin B Complex 1 cap PO DAILY 04/04/16 08/02/16 clonazePAM [KlonoPIN] 1 mg PO QID PRN 04/04/16 08/02/16 traMADol HCL [Ultram] 50 mg PO Q8H PRN 04/04/16 08/02/16 Ergocalciferol (Vitamin D2) 50,000 unit PO WE 06/14/16 08/02/16 [Vitamin D2] Vitamin C (Included W/ Vitamin B 1 tab PO DAILY 06/14/16 08/02/16 Complex) Calcium Carb-Vit D 500Mg-200Un 3 tab PO TID-W/MEALS 08/02/16 08/02/16 [Oscal 500+D] Allergies Allergy/AdvReac Type Severity Reaction Status Date / Time ammonium alum [From Carmex] Allergy Swelling Verified 08/02/16 19:56 camphor [From Carmex] Allergy Swelling Verified 08/02/16 19:56 menthol [From Carmex] Allergy Swelling Verified 08/02/16 19:56 oxybutynin Allergy Unknown Verified 08/02/16 19:56 phenol [From Carmex] Allergy Swelling Verified 08/02/16 19:56 salicylic acid [From Carmex] Allergy Swelling Verified 08/02/16 19:56 Review of Systems ROS Statement: Those systems with pertinent positive or pertinent negative responses have been documented in the HPI. ROS Other: All systems not noted in ROS Statement are negative. Past Medical History Past Medical History: CVA/TIA, Eye Disorder, Fibromyalgia, GERD/Reflux, Hypertension, Memory Impairment, Osteoarthritis (OA), Thyroid Disorder Additional Past Medical History / Comment(s): MIGRAINES. POSS TIA IN PAST. PARATHYROID ADENOMA. OSTEOPOROSIS. OCC VERTIGO. MILD MEMORY IMPAIRMENT AT TIMES. WALKS W/ CANE. VARICOSE VEINS. fatigue History of Any Multi-Drug Resistant Organisms: None Reported Past Surgical History: Hysterectomy, Tonsillectomy, Tubal Ligation Additional Past Surgical History / Comment(s): SURG LT EYE 1974 FOR DB VISION. EXC CATARACTS YAYO. COLONOSCOPY., thyroidectomy Past Anesthesia/Blood Transfusion Reactions: No Reported Reaction Past Psychological History: Anxiety, Depression Smoking Status: Current every day smoker Past Alcohol Use History: Rare Additional Past Alcohol Use History / Comment(s): SMOKES, WAS UP TO 2 PPD, NOW 1 /2 PPD, BEGAN AGE 27. Past Drug Use History: None Reported - Past Family History Mother Family Medical History: Cancer Additional Family Medical History / Comment(s): breast Father Family Medical History: Deep Vein Thrombosis (DVT) General Exam - General Exam Comments Initial Comments: GENERAL: Patient is well-developed and well-nourished. Patient is nontoxic and well- hydrated and is in no acute distress. ENT: Neck is soft and supple. No significant lymphadenopathy is noted. Oropharynx is clear. Moist mucous membranes. Neck has full range of motion without eliciting any pain. Incision appears to be healing well no signs of infection are noted. EYES: The sclera were anicteric and conjunctiva were pink and moist. Extraocular movements were intact and pupils were equal round and reactive to light. Eyelids were unremarkable. PULMONARY: Unlabored respirations. Good breath sounds bilaterally. No audible rales rhonchi or wheezing was noted. CARDIOVASCULAR: There is a regular rate and rhythm without any murmurs gallops or rubs. ABDOMEN: Soft and nontender with normal bowel sounds. No palpable organomegaly was noted. There is no palpable pulsatile mass. SKIN: Skin is clear with no lesions or rashes and otherwise unremarkable. NEUROLOGIC: Patient is alert and oriented x3. Cranial nerves II through XII are grossly intact. Motor and sensory are also intact. Normal speech, volume and content. Symmetrical smile. MUSCULOSKELETAL: Normal extremities with adequate strength and full range of motion. No lower extremity swelling or edema. No calf tenderness. LYMPHATICS: No significant lymphadenopathy is noted PSYCHIATRIC: Normal psychiatric evaluation. Limitations: no limitations Course Vital Signs 08/02/16 08/02/16 19:10 20:30 Temperature 99.1 F 98.2 F Pulse Rate 62 96 Respiratory 18 18 Rate Blood Pressure 137/68 156/72 O2 Sat by Pulse 95 95 Oximetry Medical Decision Making - Medical Decision Making Patient's cousin came back 8.0 which was improved from her previous calcium draw. I spoke with Dr. Elif Villegas she believes the patient was fine and could be discharged home to follow-up with her as previously scheduled. - Lab Data Result diagrams: 08/02/16 20:20 08/02/16 20:20 Lab Results 08/02/16 08/02/16 Range/Units 20:20 20:20 WBC 6.6 (3.8-10.6) k/uL RBC 3.95 (3.80-5.40) m/uL Hgb 12.7 (11.4-16.0) gm/dL Hct 37.0 (34.0-46.0) % MCV 93.6 (80.0-100.0) fL MCH 32.2 (25.0-35.0) pg MCHC 34.4 (31.0-37.0) g/dL RDW 13.2 (11.5-15.5) % Plt Count 186 (150-450) k/uL Neutrophils % 75 % Lymphocytes % 16 % Monocytes % 5 % Eosinophils % 1 % Basophils % 0 % Neutrophils # 5.0 (1.3-7.7) k/uL Lymphocytes # 1.1 (1.0-4.8) k/uL Monocytes # 0.3 (0-1.0) k/uL Eosinophils # 0.1 (0-0.7) k/uL Basophils # 0.0 (0-0.2) k/uL Sodium 138 (137-145) mmol/L Potassium 3.6 (3.5-5.1) mmol/L Chloride 102 (98-107) mmol/L Carbon Dioxide 27 (22-30) mmol/L Anion Gap 9 mmol/L BUN 13 (7-17) mg/dL Creatinine 0.66 (0.52-1.04) mg/dL Est GFR (MDRD) Af Amer >60 (>60 ml/min/1.73 sqM) Est GFR (MDRD) Non-Af >60 (>60 ml/min/1.73 sqM) Glucose 96 (74-99) mg/dL Calcium 8.0 L (8.4-10.2) mg/dL Total Bilirubin 0.7 (0.2-1.3) mg/dL AST 41 H (14-36) U/L ALT 49 (9-52) U/L Alkaline Phosphatase 98 (38-126) U/L Total Protein 6.8 (6.3-8.2) g/dL Albumin 3.8 (3.5-5.0) g/dL Disposition Clinical Impression: Paresthesias Disposition: HOME SELF-CARE Condition: Good Instructions: Paresthesia (ED) Referrals: Chase Vu DO [Primary Care Provider] - 1-2 days Latanya Lundberg MD [STAFF PHYSICIAN] - 1-2 days Time of Disposition: 20:53
[2016-08-02 20:32] LABS: Basophils % (A) 0 %; CH 31.9; CHCM 34.2; Eosinophils # (A) 0.1 k/uL (0-0.7); Eosinophils % (A) 1 %; HDW 2.19; HGB 12.7 gm/dL (11.4-16.0); Luc # (Auto) 0.13; Luc % (Auto) 2; Lymphocytes # (A) 1.1 k/uL (1.0-4.8); Lymphocytes % (A) 16 %; MCH 32.2 pg (25.0-35.0); MCHC 34.4 g/dL (31.0-37.0); MCV 93.6 fL (80.0-100.0); Mean Platelet Volume 7.6; Monocytes # (A) 0.3 k/uL (0-1.0); Monocytes % (A) 5 %; Neutrophils % (A) 75 %; RBC 3.95 m/uL (3.80-5.40); RDW 13.2 % (11.5-15.5); WBC 6.6 k/uL (3.8-10.6); WBC (Perox) 6.89
[2016-08-02 20:36] VITALS: BP 156/72; PULSE 96; TEMP 98.2
[2016-08-02 20:43] LABS: ALT 49 U/L (9-52); AST 41 U/L (14-36); Alkaline Phosphatase 98 U/L (38-126); Anion Gap 9 mmol/L; Blood Urea Nitrogen 13 mg/dL (7-17); Carbon Dioxide 27 mmol/L (22-30); Chloride 102 mmol/L (98-107); Glucose 96 mg/dL (74-99); Non-African American GFR(MDRD) >60 (>60 ml/min/1.73 sqM); Potassium 3.6 mmol/L (3.5-5.1); Sodium 138 mmol/L (137-145); Total Bilirubin 0.7 mg/dL (0.2-1.3); Total Protein 6.8 g/dL (6.3-8.2)
== END 2016-08-02 21:10 | disposition home or self-care (01) ==
LOC: EC 18:54
DX: R20.2 Paresthesia of skin (principal); M79.7 Fibromyalgia; K21.9 Gastro-esophageal reflux disease without esophagitis; I10 Essential (primary) hypertension; M19.90 Unspecified osteoarthritis, unspecified site; M81.0 Age-related osteoporosis without current pathological fracture; F41.9 Anxiety disorder, unspecified; F32.9 Major depressive disorder, single episode, unspecified; F17.200 Nicotine dependence, unspecified, uncomplicated; Z85.850 Personal history of malignant neoplasm of thyroid; Z86.73 Personal history of transient ischemic attack (TIA), and cerebral infarction without residual deficits; Z88.8 Allergy status to other drugs, medicaments and biological substances; Z79.02 Long term (current) use of antithrombotics/antiplatelets; Z79.899 Other long term (current) drug therapy
CPT/HCPCS: 36415; 80053; 85025; 99283

== ENCOUNTER 2016-08-03 11:21 | Emergency (ER) | payer MEDICARE ==
[2016-08-03] MEDS ORDERED: SODIUM CHLORIDE 0.9% 1,000 ML IV STA (11:49)
[2016-08-03] MEDS ORDERED: LORazepam 2 MG/ML SYRINGE IV STA (11:50)
--- NOTE | 2016-08-03 11:54 | ED ---
General Adult HPI - General Chief complaint: Anxiety Stated complaint: Anxiety Time Seen by Provider: 08/03/16 11:36 Source: patient, EMS, RN notes reviewed Mode of arrival: EMS Limitations: no limitations - History of Present Illness Initial comments: Patient is a pleasant [age]-year-old female presenting to the emergency department complaining of anxiety. Patient did have recent parathyroid surgery. Patient complains of tingling throughout. Patient states she may have had some muscle spasms as well. Patient states when she eats she has loose stools and therefore has not been eating since yesterday afternoon. Patient states she did not take her calcium yesterday or today. Patient states she is very anxious and it is hard for her to relax. Patient does have a history of anxiety problems similar to this previously. Patient states she cannot slow her breathing down however otherwise does not feel short of breath. Patient does complain of paresthesias throughout her body, mostly of her scalp and face on both sides. - Related Data Home Medications Medication Instructions Recorded Confirmed Alendronate Sodium [Fosamax] 70 mg PO WE 04/04/16 08/03/16 Butalb/APAP/Caff 50-325-40Mg 1 tab PO Q6H PRN 04/04/16 08/03/16 [Fioricet 50-325-40] Clopidogrel [Plavix] 75 mg PO DAILY 04/04/16 08/03/16 Cyclobenzaprine [Flexeril] 10 mg PO TID PRN 04/04/16 08/03/16 PARoxetine HCL [Paxil] 60 mg PO DAILY 04/04/16 08/03/16 Potassium Chloride [Klor-Con 20] 20 meq PO BID 04/04/16 08/03/16 Pravastatin Sodium [Pravachol] 20 mg PO HS 04/04/16 08/03/16 Pregabalin [Lyrica] 75 mg PO BID 04/04/16 08/03/16 Ranitidine HCl [Zantac] 150 mg PO BID 04/04/16 08/03/16 Vitamin B Complex 1 cap PO DAILY 04/04/16 08/03/16 clonazePAM [KlonoPIN] 1 mg PO QID PRN 04/04/16 08/03/16 traMADol HCL [Ultram] 50 mg PO Q8H PRN 04/04/16 08/03/16 Ergocalciferol (Vitamin D2) 50,000 unit PO WE 06/14/16 08/03/16 [Vitamin D2] Calcium Carb-Vit D 500Mg-200Un 3 tab PO TID-W/MEALS 08/02/16 08/03/16 [Oscal 500+D] Ascorbic Acid [Vitamin C] 500 mg PO DAILY 08/03/16 08/03/16 amLODIPine [Norvasc] 5 mg PO DAILY 08/03/16 08/03/16 Allergies Allergy/AdvReac Type Severity Reaction Status Date / Time ammonium alum [From Carmex] Allergy Swelling Verified 08/03/16 13:53 camphor [From Carmex] Allergy Swelling Verified 08/03/16 13:53 menthol [From Carmex] Allergy Swelling Verified 08/03/16 13:53 oxybutynin Allergy Unknown Verified 08/03/16 13:53 phenol [From Carmex] Allergy Swelling Verified 08/03/16 13:53 salicylic acid [From Carmex] Allergy Swelling Verified 08/03/16 13:53 Review of Systems ROS Statement: Those systems with pertinent positive or pertinent negative responses have been documented in the HPI. ROS Other: All systems not noted in ROS Statement are negative. Constitutional: Denies: fever Eyes: Denies: eye pain ENT: Denies: ear pain Respiratory: Denies: cough Cardiovascular: Denies: chest pain Endocrine: Denies: fatigue Gastrointestinal: Denies: abdominal pain Genitourinary: Denies: dysuria Musculoskeletal: Denies: back pain Skin: Denies: rash Neurological: Reports: paresthesias. Denies: headache Psychiatric: Reports: anxiety Past Medical History Past Medical History: CVA/TIA, Eye Disorder, Fibromyalgia, GERD/Reflux, Hypertension, Memory Impairment, Osteoarthritis (OA), Thyroid Disorder Additional Past Medical History / Comment(s): MIGRAINES. POSS TIA IN PAST. PARATHYROID ADENOMA. OSTEOPOROSIS. OCC VERTIGO. MILD MEMORY IMPAIRMENT AT TIMES. WALKS W/ CANE. VARICOSE VEINS. fatigue History of Any Multi-Drug Resistant Organisms: None Reported Past Surgical History: Hysterectomy, Tonsillectomy, Tubal Ligation Additional Past Surgical History / Comment(s): SURG LT EYE 1974 FOR DB VISION. EXC CATARACTS YAYO. COLONOSCOPY., thyroidectomy Past Anesthesia/Blood Transfusion Reactions: No Reported Reaction Past Psychological History: Anxiety, Depression Smoking Status: Current every day smoker Past Alcohol Use History: Rare Additional Past Alcohol Use History / Comment(s): SMOKES, WAS UP TO 2 PPD, NOW 1 /2 PPD, BEGAN AGE 27. Past Drug Use History: None Reported - Past Family History Mother Family Medical History: Cancer Additional Family Medical History / Comment(s): breast Father Family Medical History: Deep Vein Thrombosis (DVT) General Exam Limitations: no limitations General appearance: alert, in no apparent distress Head exam: Present: atraumatic Eye exam: Present: normal appearance, PERRL, EOMI ENT exam: Present: normal oropharynx Neck exam: Present: other (Anterior neck incision clean and dry and intact) Respiratory exam: Present: normal lung sounds bilaterally Cardiovascular Exam: Present: regular rate, normal rhythm GI/Abdominal exam: Present: soft. Absent: tenderness Extremities exam: Present: normal inspection Neurological exam: Present: alert, CN II-XII intact. Absent: motor sensory deficit Expanded Motor strength exam: RUE: 5, LUE: 5, RLE: 5, LLE: 5 Psychiatric exam: Present: anxious Skin exam: Present: normal color Course Vital Signs 08/03/16 08/03/16 08/03/16 11:24 13:21 13:33 Temperature 97.9 F 97.9 F Pulse Rate 76 88 91 Respiratory 22 18 18 Rate Blood Pressure 140/79 146/78 155/74 O2 Sat by Pulse 100 98 97 Oximetry EKG Findings - EKG Comments: EKG Findings:: Normal sinus rhythm at 76. IL 120. QRS 76. QT 408. QTC 459. Normal axis. Normal QRS. Normal ST-T. Medical Decision Making - Medical Decision Making Patient reevaluated and now symptom-free. No muscle spasms. No paresthesias. Patient was counseled on extreme importance of taking her calcium. Patient does demonstrate understanding and is in agreement. Case was discussed in detail with Dr. Nghia Villegas who feels patient can be safely discharged and returned for return of symptoms. - Lab Data Result diagrams: 08/03/16 11:50 08/03/16 11:50 Lab Results 08/03/16 08/03/16 08/03/16 Range/Units 11:50 11:50 12:50 WBC 6.8 (3.8-10.6) k/uL RBC 4.10 (3.80-5.40) m/uL Hgb 13.1 (11.4-16.0) gm/dL Hct 38.6 (34.0-46.0) % MCV 94.1 (80.0-100.0) fL MCH 31.9 (25.0-35.0) pg MCHC 33.9 (31.0-37.0) g/dL RDW 13.3 (11.5-15.5) % Plt Count 224 (150-450) k/uL Neutrophils % 80 % Lymphocytes % 12 % Monocytes % 5 % Eosinophils % 1 % Basophils % 0 % Neutrophils # 5.4 (1.3-7.7) k/uL Lymphocytes # 0.8 L (1.0-4.8) k/uL Monocytes # 0.4 (0-1.0) k/uL Eosinophils # 0.1 (0-0.7) k/uL Basophils # 0.0 (0-0.2) k/uL Sodium 142 (137-145) mmol/L Potassium 4.0 (3.5-5.1) mmol/L Chloride 106 (98-107) mmol/L Carbon Dioxide 26 (22-30) mmol/L Anion Gap 10 mmol/L BUN 14 (7-17) mg/dL Creatinine 0.70 (0.52-1.04) mg/dL Est GFR (MDRD) Af Amer >60 (>60 ml/min/1.73 sqM) Est GFR (MDRD) Non-Af >60 (>60 ml/min/1.73 sqM) Glucose 97 (74-99) mg/dL Calcium 7.3 L (8.4-10.2) mg/dL Ionized Calcium Noreen 4.1 L (4.5-5.3) mg/dL Magnesium 1.7 (1.6-2.3) mg/dL Total Bilirubin 0.7 (0.2-1.3) mg/dL AST 34 (14-36) U/L ALT 46 (9-52) U/L Alkaline Phosphatase 106 (38-126) U/L Total Protein 6.5 (6.3-8.2) g/dL Albumin 3.8 (3.5-5.0) g/dL TSH 0.243 L (0.465-4.680) mIU/L Free T4 2.03 (0.78-2.19) ng/dL Free T3 pg/mL 6.2 H (2.8-5.3) pg/ml Disposition Clinical Impression: Hypocalcemia, Acute anxiety, Paresthesias Disposition: HOME SELF-CARE Condition: Stable Instructions: Generalized Anxiety Disorder (ED), Hypocalcemia (ED) Additional Instructions: Please follow-up with primary care physician and Dr. Lundberg in the beginning of the week. Please have your calcium level rechecked on Friday. Please take calcium as directed. Do not miss any doses of your calcium, this is extremely important. If you miss your medication it could be life- threatening. Return for tingling or odd sensations, muscle spasms, weakness, worsening symptoms or other concerns. Referrals: Chase Vu DO [Primary Care Provider] - 1-2 days Latanya Lundberg MD [STAFF PHYSICIAN] - 1-2 days Time of Disposition: 14:18
[2016-08-03 12:10] LABS: Basophils % (A) 0 %; CH 32.3; CHCM 34.4; Eosinophils # (A) 0.1 k/uL (0-0.7); Eosinophils % (A) 1 %; HCT 38.6 % (34.0-46.0); HGB 13.1 gm/dL (11.4-16.0); Luc # (Auto) 0.11; Luc % (Auto) 2; Lymphocytes # (A) 0.8 k/uL (1.0-4.8); Lymphocytes % (A) 12 %; MCH 31.9 pg (25.0-35.0); MCHC 33.9 g/dL (31.0-37.0); MCV 94.1 fL (80.0-100.0); Mean Platelet Volume 7.7; Monocytes # (A) 0.4 k/uL (0-1.0); Monocytes % (A) 5 %; Neutrophils # (A) 5.4 k/uL (1.3-7.7); Neutrophils % (A) 80 %; RDW 13.3 % (11.5-15.5); WBC 6.8 k/uL (3.8-10.6); WBC (Perox) 6.81
[2016-08-03 12:27] LABS: ALT 46 U/L (9-52); AST 34 U/L (14-36); Alkaline Phosphatase 106 U/L (38-126); Anion Gap 10 mmol/L; Blood Urea Nitrogen 14 mg/dL (7-17); Calcium 7.3 mg/dL (8.4-10.2); Carbon Dioxide 26 mmol/L (22-30); Chloride 106 mmol/L (98-107); Glucose 97 mg/dL (74-99); Magnesium 1.7 mg/dL (1.6-2.3); Non-African American GFR(MDRD) >60 (>60 ml/min/1.73 sqM); Sodium 142 mmol/L (137-145); Total Bilirubin 0.7 mg/dL (0.2-1.3); Total Protein 6.5 g/dL (6.3-8.2)
[2016-08-03] MEDS ORDERED: CALCIUM CARB-VIT D 500MG-200UN 1 EACH TAB PO ONE (13:00)
[2016-08-03 13:31] VITALS: RESP 18
[2016-08-03] MEDS ORDERED: CALCIUM GLUCONATE 1,000 MG in SODIUM CHLORIDE 0.9% 100 ML IVPB ONE (14:00)
[2016-08-03 14:44] VITALS: BP 152/91; PULSE 84; TEMP 98.1
== END 2016-08-03 14:43 | disposition home or self-care (01) ==
LOC: EC 11:21
DX: F41.9 Anxiety disorder, unspecified (principal); R20.2 Paresthesia of skin; E83.51 Hypocalcemia; M79.7 Fibromyalgia; K21.9 Gastro-esophageal reflux disease without esophagitis; I10 Essential (primary) hypertension; E07.9 Disorder of thyroid, unspecified; M19.90 Unspecified osteoarthritis, unspecified site; F32.9 Major depressive disorder, single episode, unspecified; M81.0 Age-related osteoporosis without current pathological fracture; F17.200 Nicotine dependence, unspecified, uncomplicated; Z79.02 Long term (current) use of antithrombotics/antiplatelets; Z79.899 Other long term (current) drug therapy; Z88.8 Allergy status to other drugs, medicaments and biological substances; Z91.048 Other nonmedicinal substance allergy status; Z86.73 Personal history of transient ischemic attack (TIA), and cerebral infarction without residual deficits
CPT/HCPCS: 36415; 93005; 84439; 84481; 80053; 82330; 83735; 84443; 85025; 99284; 96374; 96375; 96361 ×3; J2060; J0610

== ENCOUNTER → 2017-09-18 | Outpatient (CLI) | payer MEDICARE, OTHER ==
--- NOTE | 2017-09-22 10:58 | MM ---
Reason for exam: screening (asymptomatic). Last mammogram was performed 1 year and 5 months ago. History: Patient is postmenopausal and had first child at age 34. Family history of breast cancer in maternal grandmother and premenopausal breast cancer in mother. Benign left breast needle localization of the left breast, April 02, 2011. Physical Findings: A clinical breast exam by your physician is recommended on an annual basis and results should be correlated with mammographic findings. MG 3D Screening Mammo W/Cad Bilateral CC and MLO view(s) were taken. Prior study comparison: April 22, 2016, bilateral MG 3d screening mammo w/cad. March 29, 2014, mammogram, performed at [facility]. The breast tissue is heterogeneously dense. This may lower the sensitivity of mammography. No suspicious abnormality. No significant changes when compared with prior studies. ASSESSMENT: Negative, BI-RAD 1 RECOMMENDATION: Routine screening mammogram of both breasts in 1 year.
== END | disposition home or self-care (01) ==
LOC: RADMAMWWP 16:22
PROVIDERS: ATTEND Family Medicine
DX: Z12.31 Encounter for screening mammogram for malignant neoplasm of breast (principal)
CPT/HCPCS: 77063; 77067

== ENCOUNTER 2017-10-20 17:16 | Emergency (ER) | payer MEDICARE, OTHER ==
[2017-10-20 17:25] VITALS: TEMP 98.6
--- NOTE | 2017-10-20 20:12 | ED ---
General Adult HPI - General Chief complaint: Recheck/Abnormal Lab/Rx Stated complaint: Hemmroids Time Seen by Provider: 10/20/17 18:56 Source: patient, RN notes reviewed Mode of arrival: EMS Limitations: no limitations - History of Present Illness Initial comments: 67-year-old female since to the emergency department for a chief complaint of bleeding from the hemorrhoid. Patient states she has had the hemorrhoid for quite some time. Patient states that earlier today she went to remove her underwear when she noticed blood in her underwear. Patient states this happened one other time today. Patient denies any dizziness, shortness of breath, chest pain, or lightheadedness. Patient states she also has pain of the skin around her underwear area. Patient denies fevers or chills at home. Patient states this has been treated previously with an ointment. Patient states this has also been going on for some time. Patient has no other complaints at this time including shortness of breath, chest pain, abdominal pain, nausea or vomiting, headache, or visual changes. - Related Data Home Medications Medication Instructions Recorded Confirmed Alendronate Sodium [Fosamax] 70 mg PO WE 04/04/16 10/20/17 Butalb/APAP/Caff 50-325-40Mg 1 tab PO Q6H PRN 04/04/16 10/20/17 [Fioricet 50-325-40] Clopidogrel [Plavix] 75 mg PO DAILY 04/04/16 10/20/17 PARoxetine HCL [Paxil] 60 mg PO DAILY 04/04/16 10/20/17 Potassium Chloride [Klor-Con 20] 20 meq PO BID 04/04/16 10/20/17 Pravastatin Sodium [Pravachol] 20 mg PO HS 04/04/16 10/20/17 Pregabalin [Lyrica] 75 mg PO BID 04/04/16 10/20/17 Ranitidine HCl [Zantac] 150 mg PO BID 04/04/16 10/20/17 Vitamin B Complex 1 cap PO DAILY 04/04/16 10/20/17 clonazePAM [KlonoPIN] 0.5 - 1 mg PO QID PRN 04/04/16 10/20/17 Ergocalciferol (Vitamin D2) 50,000 unit PO WE 06/14/16 10/20/17 [Vitamin D2] Calcium Carb-Vit D 500Mg-200Un 1 tab PO TID-W/MEALS 08/02/16 10/20/17 [Oscal 500+D] Ascorbic Acid [Vitamin C] 500 mg PO DAILY 08/03/16 10/20/17 amLODIPine [Norvasc] 5 mg PO DAILY 08/03/16 10/20/17 Meloxicam [Mobic] 7.5 mg PO BID PRN 10/20/17 10/20/17 Previous Rx's Medication Instructions Recorded Docusate Sodium [Dok] 100 mg PO DAILY #20 capsule 10/20/17 Nystatin 100,000Unit/gm Cream 1 applic TOPICAL TID #100 gm 10/20/17 [Mycostatin Cream] Zinc Oxide [Desitin] 1 applic TOPICAL HS #454 gm 10/20/17 Allergies Allergy/AdvReac Type Severity Reaction Status Date / Time ammonium alum [From Carmex] Allergy Swelling Verified 10/20/17 17:39 camphor [From Carmex] Allergy Swelling Verified 10/20/17 17:39 menthol [From Carmex] Allergy Swelling Verified 10/20/17 17:39 oxybutynin Allergy Unknown Verified 10/20/17 17:39 phenol [From Carmex] Allergy Swelling Verified 10/20/17 17:39 salicylic acid [From Carmex] Allergy Swelling Verified 10/20/17 17:39 Review of Systems ROS Statement: Those systems with pertinent positive or pertinent negative responses have been documented in the HPI. ROS Other: All systems not noted in ROS Statement are negative. Past Medical History Past Medical History: CVA/TIA, Eye Disorder, Fibromyalgia, GERD/Reflux, Hypertension, Memory Impairment, Osteoarthritis (OA), Thyroid Disorder Additional Past Medical History / Comment(s): MIGRAINES. POSS TIA IN PAST. PARATHYROID ADENOMA. OSTEOPOROSIS. OCC VERTIGO. MILD MEMORY IMPAIRMENT AT TIMES. WALKS W/ CANE. VARICOSE VEINS. fatigue History of Any Multi-Drug Resistant Organisms: None Reported Past Surgical History: Hysterectomy, Tonsillectomy, Tubal Ligation Additional Past Surgical History / Comment(s): SURG LT EYE 1974 FOR DB VISION. EXC CATARACTS YAYO. COLONOSCOPY., thyroidectomy Past Anesthesia/Blood Transfusion Reactions: No Reported Reaction Past Psychological History: Anxiety, Depression Smoking Status: Current every day smoker Past Alcohol Use History: Rare Past Drug Use History: None Reported - Past Family History Mother Family Medical History: Cancer Additional Family Medical History / Comment(s): breast Father Family Medical History: Deep Vein Thrombosis (DVT) General Exam Limitations: no limitations General appearance: alert, in no apparent distress Head exam: Present: atraumatic, normocephalic, normal inspection Eye exam: Present: normal appearance ENT exam: Present: normal exam, mucous membranes moist Neck exam: Present: normal inspection. Absent: tenderness, meningismus, lymphadenopathy Respiratory exam: Present: normal lung sounds bilaterally. Absent: respiratory distress, wheezes, rales, rhonchi, stridor Cardiovascular Exam: Present: regular rate, normal rhythm, normal heart sounds. Absent: systolic murmur, diastolic murmur, rubs, gallop, clicks GI/Abdominal exam: Present: soft, normal bowel sounds. Absent: distended, tenderness, guarding, rebound, rigid Rectal exam: Present: hemorrhoids (soft hemorrhoid noted. No bleeding at time of inspection. hemorrhoid does not appear to be strangulated.), other ( intertriginous yeast of buttock cleft and groin area) Course Vital Signs 10/20/17 17:20 Temperature 98.6 F Pulse Rate 61 Respiratory 16 Rate Blood Pressure 148/65 O2 Sat by Pulse 97 Oximetry Medical Decision Making - Medical Decision Making 67-year-old female presents to the emergency department for a chief complaint of hemorrhoids. Patient states it was bleeding twice today. Patient states she has small hard stools often. Patient also complains of pain in the skin around the pelvic area. On exam patient does have a mild soft hemorrhoid noted. No signs of strangulation at this time. Patient has intertriginous candidiasis of the buttock cleft as well as pelvic area. This is likely another cause of her pain. Patient will be given a nystatin cream for the daytime as well as a zinc oxide cream when she wears her depends at night. She will also be given a stool softener. She is to follow-up with Dr. Vu for this problem and return if she has any worsening symptoms. Disposition Clinical Impression: Yeast infection of the skin, Hemorrhoid Disposition: HOME SELF-CARE Condition: Good Instructions: Hemorrhoids (ED), Skin Yeast Infection (ED) Additional Instructions: Please use creams as directed. Please take stool softener once daily. Please follow-up with Dr. Vu as soon as possible. Return to the emergency department if you have any worsening symptoms. Prescriptions: Docusate Sodium [Dok] 100 mg PO DAILY #20 capsule Nystatin 100,000Unit/gm Cream [Mycostatin Cream] 1 applic TOPICAL TID #100 gm Zinc Oxide [Desitin] 1 applic TOPICAL HS #454 gm Is patient prescribed a controlled substance at d/c from ED?: No Referrals: Chase Vu DO [Primary Care Provider] - 1-2 days Time of Disposition: 20:08
[2017-10-20] MEDS ORDERED: CALCIUM CARB-VIT D 500MG-200UN 1 EACH TAB PO STA (20:36)
[2017-10-20 20:49] VITALS: BP 164/73; PULSE 76; RESP 20
== END 2017-10-20 21:00 | disposition home or self-care (01) ==
LOC: EC 17:16
DX: K64.9 Unspecified hemorrhoids (principal); B37.2 Candidiasis of skin and nail; M79.7 Fibromyalgia; K21.9 Gastro-esophageal reflux disease without esophagitis; I10 Essential (primary) hypertension; M81.0 Age-related osteoporosis without current pathological fracture; F41.9 Anxiety disorder, unspecified; F32.9 Major depressive disorder, single episode, unspecified; F17.200 Nicotine dependence, unspecified, uncomplicated; Z86.73 Personal history of transient ischemic attack (TIA), and cerebral infarction without residual deficits; Z79.02 Long term (current) use of antithrombotics/antiplatelets; Z79.899 Other long term (current) drug therapy; Z91.048 Other nonmedicinal substance allergy status; Z88.8 Allergy status to other drugs, medicaments and biological substances
CPT/HCPCS: 99283

== ENCOUNTER 2018-02-21 20:11 | Emergency (ER) | payer MEDICARE, OTHER ==
[2018-02-21 20:24] VITALS: TEMP 98.5
[2018-02-21] MEDS ORDERED: METHOCARBAMOL 750 MG TAB PO STA (20:55)
[2018-02-21] MEDS ORDERED: LIDOCAINE 5% PATCH TOPICAL STA (20:56)
--- NOTE | 2018-02-21 21:00 | ED ---
Neck Injury/Pain HPI - General Chief Complaint: Neck Pain/Injury Stated Complaint: Neck pain Time Seen by Provider: 02/21/18 20:26 Mode of arrival: wheelchair Limitations: no limitations - History of Present Illness Initial Comments: Patient is a 67-year-old female presenting for neck swelling. Patient states that 1 hour prior to presentation, she was sitting in her bed when she noticed bilateral neck swelling that appears to be similar to the swelling get when a mosquito bites U. However, she denies any insect bites and states that she was having some discomfort between her shoulder blades. She said some now feels like sore muscles and that she has diffuse myalgia secondary to fibromyalgia. 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 - Related Data Home Medications Medication Instructions Recorded Confirmed Alendronate Sodium [Fosamax] 70 mg PO WE 04/04/16 10/20/17 Butalb/APAP/Caff 50-325-40Mg 1 tab PO Q6H PRN 04/04/16 10/20/17 [Fioricet 50-325-40] Clopidogrel [Plavix] 75 mg PO DAILY 04/04/16 10/20/17 PARoxetine HCL [Paxil] 60 mg PO DAILY 04/04/16 10/20/17 Potassium Chloride [Klor-Con 20] 20 meq PO BID 04/04/16 10/20/17 Pravastatin Sodium [Pravachol] 20 mg PO HS 04/04/16 10/20/17 Pregabalin [Lyrica] 75 mg PO BID 04/04/16 10/20/17 Ranitidine HCl [Zantac] 150 mg PO BID 04/04/16 10/20/17 Vitamin B Complex 1 cap PO DAILY 04/04/16 10/20/17 clonazePAM [KlonoPIN] 0.5 - 1 mg PO QID PRN 04/04/16 10/20/17 Ergocalciferol (Vitamin D2) 50,000 unit PO WE 06/14/16 10/20/17 [Vitamin D2] Calcium Carb-Vit D 500Mg-200Un 1 tab PO TID-W/MEALS 08/02/16 10/20/17 [Oscal 500+D] Ascorbic Acid [Vitamin C] 500 mg PO DAILY 08/03/16 10/20/17 amLODIPine [Norvasc] 5 mg PO DAILY 08/03/16 10/20/17 Meloxicam [Mobic] 7.5 mg PO BID PRN 10/20/17 10/20/17 Previous Rx's Medication Instructions Recorded Cephalexin [Keflex] 500 mg PO Q12HR #20 cap 10/20/17 Docusate Sodium [Dok] 100 mg PO DAILY #20 capsule 10/20/17 Fluconazole [Diflucan] 150 mg PO DAILY #2 tab 10/20/17 Nystatin 100,000Unit/gm Cream 1 applic TOPICAL TID #100 gm 10/20/17 [Mycostatin Cream] Zinc Oxide [Desitin] 1 applic TOPICAL HS #454 gm 10/20/17 Methocarbamol [Robaxin-750] 750 mg PO TID PRN #21 tablet 02/21/18 Allergies Allergy/AdvReac Type Severity Reaction Status Date / Time ammonium alum [From Carmex] Allergy Swelling Verified 02/21/18 20:24 camphor [From Carmex] Allergy Swelling Verified 02/21/18 20:24 menthol [From Carmex] Allergy Swelling Verified 02/21/18 20:24 oxybutynin Allergy Unknown Verified 02/21/18 20:24 phenol [From Carmex] Allergy Swelling Verified 02/21/18 20:24 salicylic acid [From Carmex] Allergy Swelling Verified 02/21/18 20:24 Review of Systems ROS Statement: Those systems with pertinent positive or pertinent negative responses have been documented in the HPI. Constitutional: Negative for chills, fatigue and fever. HENT: Negative for congestion. Positive for bilateral neck swelling Respiratory: Negative for chest tightness, shortness of breath and wheezing. Negative for cough Cardiovascular: Negative for chest pain and palpitations. Gastrointestinal: Negative for abdominal pain. Negative for abdominal distention , diarrhea, nausea and vomiting. Genitourinary: Negative for dysuria. Musculoskeletal: Positive for back pain, neck pain and negative for neck stiffness. Skin: Negative for color change. Neurological: Negative for dizziness, speech difficulty, weakness and light- headedness. Psychiatric/Behavioral: Negative for agitation and confusion. Negative for anxiety ROS Other: All systems not noted in ROS Statement are negative. Past Medical History Past Medical History: CVA/TIA, Eye Disorder, Fibromyalgia, GERD/Reflux, Hypertension, Memory Impairment, Osteoarthritis (OA), Thyroid Disorder Additional Past Medical History / Comment(s): MIGRAINES. POSS TIA IN PAST. PARATHYROID ADENOMA. OSTEOPOROSIS. OCC VERTIGO. MILD MEMORY IMPAIRMENT AT TIMES. WALKS W/ CANE. VARICOSE VEINS. fatigue History of Any Multi-Drug Resistant Organisms: None Reported Past Surgical History: Hysterectomy, Tonsillectomy, Tubal Ligation Additional Past Surgical History / Comment(s): SURG LT EYE 1974 FOR DB VISION. EXC CATARACTS YAYO. COLONOSCOPY., thyroidectomy Past Anesthesia/Blood Transfusion Reactions: No Reported Reaction Past Psychological History: Anxiety, Depression Smoking Status: Current every day smoker Past Alcohol Use History: Rare Past Drug Use History: None Reported - Past Family History Mother Family Medical History: Cancer Additional Family Medical History / Comment(s): breast Father Family Medical History: Deep Vein Thrombosis (DVT) General Exam - General Exam Comments Initial Comments: Constitutional: Pt is oriented to person, place, and time. Pt appears well- developed and well-nourished. No distress. HENT: Head: Normocephalic and atraumatic. Eyes: EOM are normal. Neck: Normal range of motion. Neck supple. Cardiovascular: Normal rate, regular rhythm, S1 normal, S2 normal and normal heart sounds. Exam reveals no gallop and no friction rub. No murmur heard. Pulmonary/Chest: Effort normal and breath sounds normal. No tachypnea and no bradypnea. No respiratory distress. No wheezes or rales noted. Abdominal: Soft. Bowel sounds are normal. Pt exhibits no shifting dullness, no distension, no pulsatile liver, no fluid wave, no abdominal bruit and no ascites. There is no tenderness. There is no rigidity, no rebound, no guarding, no tenderness at McBurney's point and negative Franco's sign. Musculoskeletal: Normal range of motion. Mild swelling of the right lateral neck measuring approximately 0.5 x 0.5 cm Neurological: Pt is alert and oriented to person, place, and time. No cranial nerve deficit. Skin: Skin is warm and dry. No rash noted. Pt is not diaphoretic. No erythema. No pallor. Psychiatric: Pt has a normal mood and affect. Pt behavior is normal. Thought content normal. Limitations: no limitations Course Vital Signs 02/21/18 02/21/18 20:21 22:12 Temperature 98.5 F Pulse Rate 95 86 Respiratory 20 16 Rate Blood Pressure 148/75 137/77 O2 Sat by Pulse 97 96 Oximetry Medical Decision Making - Medical Decision Making Laboratory studies showed that there is no significant electrolyte derangements. Additionally, the patient was advised that she should have a cardiac evaluation including EKG and 2 troponins but she currently declined and stated she simply wanted to try muscle relaxers. Patient was given Robaxin and a lidocaine patch and stated that her symptoms completely resolved. Her to disposition, patient was again cautioned the cardiac evaluation life- threatening illnesses cannot be excluded and that leaving without these being completely could result in or disability. Patient expressed understanding and stated she would follow up with PCP and that she felt great. - Lab Data Result diagrams: 02/21/18 21:23 02/21/18 21:23 Lab Results 02/21/18 02/21/18 Range/Units 21:23 21:23 WBC 9.0 (3.8-10.6) k/uL RBC 4.55 (3.80-5.40) m/uL Hgb 14.1 (11.4-16.0) gm/dL Hct 43.2 (34.0-46.0) % MCV 95.1 (80.0-100.0) fL MCH 31.1 (25.0-35.0) pg MCHC 32.7 (31.0-37.0) g/dL RDW 13.4 (11.5-15.5) % Plt Count 209 (150-450) k/uL Neutrophils % 75 % Lymphocytes % 17 % Monocytes % 5 % Eosinophils % 1 % Basophils % 0 % Neutrophils # 6.7 (1.3-7.7) k/uL Lymphocytes # 1.5 (1.0-4.8) k/uL Monocytes # 0.4 (0-1.0) k/uL Eosinophils # 0.1 (0-0.7) k/uL Basophils # 0.0 (0-0.2) k/uL Sodium 140 (137-145) mmol/L Potassium 3.7 (3.5-5.1) mmol/L Chloride 105 (98-107) mmol/L Carbon Dioxide 29 (22-30) mmol/L Anion Gap 6 mmol/L BUN 17 (7-17) mg/dL Creatinine 0.68 (0.52-1.04) mg/dL Est GFR (CKD-EPI)AfAm >90 (>60 ml/min/1.73 sqM) Est GFR (CKD-EPI)NonAf >90 (>60 ml/min/1.73 sqM) Glucose 158 H (74-99) mg/dL Calcium 9.7 (8.4-10.2) mg/dL Disposition Clinical Impression: Trapezius muscle spasm Disposition: HOME SELF-CARE Condition: Good Instructions: Muscle Spasm (ED) Prescriptions: Methocarbamol [Robaxin-750] 750 mg PO TID PRN #21 tablet PRN Reason: Pain Is patient prescribed a controlled substance at d/c from ED?: No Referrals: Chase Vu DO [Primary Care Provider] - 1-2 days Time of Disposition: 22:24
[2018-02-21 21:38] LABS: Basophils % (A) 0 %; Eosinophils # (A) 0.1 k/uL (0-0.7); Eosinophils % (A) 1 %; HCT 43.2 % (34.0-46.0); HGB 14.1 gm/dL (11.4-16.0); Lymphocytes # (A) 1.5 k/uL (1.0-4.8); Lymphocytes % (A) 17 %; MCH 31.1 pg (25.0-35.0); MCHC 32.7 g/dL (31.0-37.0); MCV 95.1 fL (80.0-100.0); Mean Platelet Volume 7.1; Monocytes # (A) 0.4 k/uL (0-1.0); Monocytes % (A) 5 %; Neutrophils # (A) 6.7 k/uL (1.3-7.7); Neutrophils % (A) 75 %; Platelet Count 209 k/uL (150-450); RBC 4.55 m/uL (3.80-5.40); RDW 13.4 % (11.5-15.5)
[2018-02-21 21:56] LABS: Anion Gap 6 mmol/L; Blood Urea Nitrogen 17 mg/dL (7-17); Calcium 9.7 mg/dL (8.4-10.2); Carbon Dioxide 29 mmol/L (22-30); Chloride 105 mmol/L (98-107); Glucose 158 mg/dL (74-99); Potassium 3.7 mmol/L (3.5-5.1); Sodium 140 mmol/L (137-145)
[2018-02-21 22:13] VITALS: BP 137/77; PULSE 86; RESP 16
== END 2018-02-21 22:34 | disposition home or self-care (01) ==
LOC: EC 20:11
DX: M79.7 Fibromyalgia (principal); I10 Essential (primary) hypertension; K21.9 Gastro-esophageal reflux disease without esophagitis; M81.0 Age-related osteoporosis without current pathological fracture; F32.9 Major depressive disorder, single episode, unspecified; F41.9 Anxiety disorder, unspecified; F17.200 Nicotine dependence, unspecified, uncomplicated; Z88.8 Allergy status to other drugs, medicaments and biological substances; Z79.02 Long term (current) use of antithrombotics/antiplatelets; Z79.899 Other long term (current) drug therapy; Z86.73 Personal history of transient ischemic attack (TIA), and cerebral infarction without residual deficits
CPT/HCPCS: 36415; 80048; 85025; 99283

== ENCOUNTER 2018-02-23 10:33 | Observation (INO) | payer MEDICARE, OTHER ==
--- NOTE | 2018-02-23 10:52 | ED ---
Recheck HPI <Lance Villegas - Last Filed: 02/23/18 14:20> - General Source: patient Mode of arrival: ambulatory Limitations: no limitations <Velma Cruz - Last Filed: 02/23/18 17:02> - General Chief Complaint: Recheck/Abnormal Lab/Rx Stated Complaint: facial swelling Time Seen by Provider: 02/23/18 10:40 - History of Present Illness Initial Comments: 67-year-old female with past medical history of chronic migraines, TIA parathyroid adenoma, osteoporosis, memory impairment, vertigo, viral myalgia, hypertension presenting today for chief complaint of facial swelling/pain/ rednesss and bilateral neck pain to touch 2 hours. Patient states that she woke this morning she noticed that her entire face was swollen and painful to touch. Patient states that a few days ago she was seen here at the emergency department for neck pain she states she noticed mild neck pain on the right side she thought it may have been a muscle however today it is bilateral. Patient states the lidocaine patch helped at that time. Patient does admit upon review of systems of a mild headache, she states that she normally gets "way worse" migraines and this is mild. Patient denies any difficulty breathing , difficulty swallowing, lip swelling, swelling below the tongue, tongue swelling, new medications, changes in diet or consumption of seafood history of cancer, chest pain, shortness of breath, dizziness, upper or lower extremity paresthesias, fever, chills, night sweats, abrasions or wounds of the face or neck, trauma to the face or neck, recent falls, ataxia, visual changes, diplopia , nausea, vomiting, diarrhea, abdominal pain, muscle weakness, facial asymmetry , cough, hemoptysis or any other associated symptoms. Pt did state she felt as though her tongue did feel different today, however insists no swelling. Pt states she suffers from chronic low back pain no new changes today. Remainder of ROS (-). Upon arrival pt appears well, no signs of respiratory distress. No swelling noted of the lips. VS within acceptable limits. (Velma Cruz) - Related Data Home Medications Medication Instructions Recorded Confirmed Alendronate Sodium [Fosamax] 70 mg PO WE 04/04/16 10/20/17 Clopidogrel [Plavix] 75 mg PO DAILY 04/04/16 02/23/18 PARoxetine HCL [Paxil] 60 mg PO DAILY 04/04/16 02/23/18 Potassium Chloride [Klor-Con 20] 20 meq PO BID 04/04/16 02/23/18 Pravastatin Sodium [Pravachol] 20 mg PO HS 04/04/16 02/23/18 Pregabalin [Lyrica] 75 mg PO BID 04/04/16 02/23/18 Ranitidine HCl [Zantac] 150 mg PO BID 04/04/16 02/23/18 Vitamin B Complex 1 cap PO DAILY 04/04/16 02/23/18 clonazePAM [KlonoPIN] 0.5 - 1 mg PO QID PRN 04/04/16 02/23/18 Ergocalciferol (Vitamin D2) 50,000 unit PO WE 06/14/16 02/23/18 [Vitamin D2] Calcium Carb-Vit D 500Mg-200Un 1 tab PO TID-W/MEALS 08/02/16 02/23/18 [Oscal 500+D] Ascorbic Acid [Vitamin C] 500 mg PO DAILY 08/03/16 02/23/18 amLODIPine [Norvasc] 5 mg PO DAILY 08/03/16 02/23/18 Meloxicam [Mobic] 7.5 mg PO BID PRN 10/20/17 02/23/18 Previous Rx's Medication Instructions Recorded Docusate Sodium [Dok] 100 mg PO DAILY #20 capsule 10/20/17 Allergies Allergy/AdvReac Type Severity Reaction Status Date / Time ammonium alum [From Carmex] Allergy Swelling Verified 02/23/18 10:56 camphor [From Carmex] Allergy Swelling Verified 02/23/18 10:56 menthol [From Carmex] Allergy Swelling Verified 02/23/18 10:56 oxybutynin Allergy Unknown Verified 02/23/18 10:56 phenol [From Carmex] Allergy Swelling Verified 02/23/18 10:56 salicylic acid [From Carmex] Allergy Swelling Verified 02/23/18 10:56 Review of Systems ROS Other: All systems not noted in ROS Statement are negative. <Lance Villegas - Last Filed: 02/23/18 14:20> ROS Other: All systems not noted in ROS Statement are negative. <Velma Cruz - Last Filed: 02/23/18 17:02> ROS Statement: Those systems with pertinent positive or pertinent negative responses have been documented in the HPI. Past Medical History Past Medical History: CVA/TIA, Eye Disorder, Fibromyalgia, GERD/Reflux, Hypertension, Memory Impairment, Osteoarthritis (OA), Thyroid Disorder Additional Past Medical History / Comment(s): MIGRAINES. POSS TIA IN PAST. PARATHYROID ADENOMA. OSTEOPOROSIS. OCC VERTIGO. MILD MEMORY IMPAIRMENT AT TIMES. WALKS W/ CANE. VARICOSE VEINS. fatigue History of Any Multi-Drug Resistant Organisms: None Reported Past Surgical History: Hysterectomy, Tonsillectomy, Tubal Ligation Additional Past Surgical History / Comment(s): SURG LT EYE 1974 FOR DB VISION. EXC CATARACTS YAYO. COLONOSCOPY., thyroidectomy Past Anesthesia/Blood Transfusion Reactions: No Reported Reaction Past Psychological History: Anxiety, Depression Smoking Status: Current every day smoker Past Alcohol Use History: Rare Past Drug Use History: None Reported - Past Family History Mother Family Medical History: Cancer Additional Family Medical History / Comment(s): breast Father Family Medical History: Deep Vein Thrombosis (DVT) <Velma Cruz - Last Filed: 02/23/18 17:02> General Exam <Lance Villegas - Last Filed: 02/23/18 14:20> Limitations: no limitations <Velma Cruz - Last Filed: 02/23/18 17:02> - General Exam Comments Initial Comments: General: The patient is awake and alert, in no distress, and does not appear acutely ill. Eye: Pupils are equal, round and reactive to light, extra-ocular movements are intact. No nystagmus. There is normal conjunctiva bilaterally. No signs of icterus. Ears, nose, mouth and throat: There are moist mucous membranes and no oral lesions. Palpable anterior cervical lymphadenopathy b/l. No noted swelling of the tongue, lips or below the tongue. No neck swelling noted. Neck: The neck is supple, there is no tenderness or JVD. Cardiovascular: There is a regular rate and rhythm. No murmur, rub or gallop is appreciated. Respiratory: Lungs are clear to auscultation, respirations are non-labored, breath sounds are equal. No wheezes, stridor, rales, or rhonchi. Gastrointestinal: Soft, non-distended, non-tender abdomen without masses or organomegaly noted. There is no rebound or guarding present. No CVA tenderness. Bowel sounds are unremarkable. Musculoskeletal: Normal ROM, no tenderness. Strength 5/5. Sensation intact. Radial pulses equal bilaterally 2+. Neurological: A&O x 3. CN II-XII intact, There are no obvious motor or sensory deficits. Coordination appears grossly intact. Speech is normal. Skin: Skin is warm and dry. Erythematous dermatitis of the face with the right greater than the left diffuse, warm to palpation. No lesions of the nose. Psychiatric: Cooperative, appropriate mood & affect, normal judgment. (Velma Cruz) Course <Lance Villegas - Last Filed: 02/23/18 14:20> <Velma Cruz - Last Filed: 02/23/18 17:02> Vital Signs 02/23/18 02/23/18 02/23/18 10:34 11:00 11:30 Temperature 98.8 F Pulse Rate 89 90 94 Respiratory 18 18 18 Rate Blood Pressure 142/68 142/68 146/66 O2 Sat by Pulse 96 95 95 Oximetry 02/23/18 02/23/18 12:00 15:03 Temperature 98.8 F Pulse Rate 89 94 Respiratory 18 18 Rate Blood Pressure 140/71 133/64 O2 Sat by Pulse 98 99 Oximetry - Reevaluation(s) Reevaluation #1: 02/23/18 14:21 PA supervision: I proceeded [id number] evaluation the patient did discuss the findings her and her son were present. Patient does demonstrate evidence of facial cellulitis both on the right and left side. She did have the rash was started over last day or 2 with pain in the base of the neck bilaterally consistent with lymphadenopathy. She has had hot and cold flashes over last several days with no evidence of fever she's had some headache some neck pain. No evidence of any meningismus I do agree with the assessment and plan. Case will be discussed with Dr. Gregorio (Lance Villegas) Reevaluation #2: Pt requesting calcium that she takes daily at same time, administered medication. Pt continues to deny difficulty breathing or swallowing. 02/23/18 (Velma Cruz) Medical Decision Making - Lab Data Result diagrams: 02/23/18 11:35 02/23/18 11:35 <Lance Villegas - Last Filed: 02/23/18 14:20> - Lab Data Result diagrams: 02/23/18 11:35 02/23/18 11:35 <Velma Cruz - Last Filed: 02/23/18 17:02> - Medical Decision Making 67yo female with cc of facial swelling/pain/redness x1 day. No laboratory findings or vital signs concerning for sepsis at this time, patient overall appears nontoxic. WBC WNL, lactic (-), HR and BP within acceptable limits. CXR ( -). Physical exam did reveal a dermatitis of the face with right greater than left that appears to be consistent with a cellulitis. The area is warm to touch , with palpable cervical lymphadenopathy. Patient did admit to facial swelling, and odd sensation of tongue when taking her pills of her tongue this morning she was given Solu-Medrol, Benadryl and pepcid. Pt stated that this did not really change symptoms, however she states her mouth is dry and this could be causing the tongue sensation. No signs of respiratory distress, pt denies difficulty breathing or swallowing. Pt was evaluated by Dr. Villegas who agreed with impression. Pt will be admitted for IV abx and ID consultation. Dr. Villegas spoke with Dr. Gregorio who accepted admission. Pt was started on zosyn and vancomycin. no further orders at this time from admitting provider. (Velma Cruz) - Lab Data Lab Results 02/23/18 02/23/18 02/23/18 Range/Units 11:35 11:35 11:35 WBC 9.0 (3.8-10.6) k/uL RBC 4.60 (3.80-5.40) m/uL Hgb 14.3 (11.4-16.0) gm/dL Hct 43.1 (34.0-46.0) % MCV 93.6 (80.0-100.0) fL MCH 31.1 (25.0-35.0) pg MCHC 33.2 (31.0-37.0) g/dL RDW 13.3 (11.5-15.5) % Plt Count 186 (150-450) k/uL Neutrophils % 87 % Lymphocytes % 7 % Monocytes % 5 % Eosinophils % 0 % Basophils % 0 % Neutrophils # 7.9 H (1.3-7.7) k/uL Lymphocytes # 0.6 L (1.0-4.8) k/uL Monocytes # 0.4 (0-1.0) k/uL Eosinophils # 0.0 (0-0.7) k/uL Basophils # 0.0 (0-0.2) k/uL PT (9.0-12.0) sec INR (<1.2) APTT (22.0-30.0) sec Sodium 142 (137-145) mmol/L Potassium 3.9 (3.5-5.1) mmol/L Chloride 108 H (98-107) mmol/L Carbon Dioxide 29 (22-30) mmol/L Anion Gap 5 mmol/L BUN 17 (7-17) mg/dL Creatinine 0.65 (0.52-1.04) mg/dL Est GFR (CKD-EPI)AfAm >90 (>60 ml/min/1.73 sqM) Est GFR (CKD-EPI)NonAf >90 (>60 ml/min/1.73 sqM) Glucose 126 H (74-99) mg/dL Plasma Lactic Acid Timothy (0.7-2.0) mmol/L Calcium 9.1 (8.4-10.2) mg/dL Total Bilirubin 0.4 (0.2-1.3) mg/dL AST 23 (14-36) U/L ALT 28 (9-52) U/L Alkaline Phosphatase 79 (38-126) U/L Total Creatine Kinase 32 (30-135) U/L CK-MB (CK-2) <0.2 (0.0-2.4) ng/mL CK-MB (CK-2) Rel Index Troponin I <0.012 (0.000-0.034) ng/mL Total Protein 6.7 (6.3-8.2) g/dL Albumin 3.8 (3.5-5.0) g/dL 02/23/18 02/23/18 Range/Units 11:35 11:35 WBC (3.8-10.6) k/uL RBC (3.80-5.40) m/uL Hgb (11.4-16.0) gm/dL Hct (34.0-46.0) % MCV (80.0-100.0) fL MCH (25.0-35.0) pg MCHC (31.0-37.0) g/dL RDW (11.5-15.5) % Plt Count (150-450) k/uL Neutrophils % % Lymphocytes % % Monocytes % % Eosinophils % % Basophils % % Neutrophils # (1.3-7.7) k/uL Lymphocytes # (1.0-4.8) k/uL Monocytes # (0-1.0) k/uL Eosinophils # (0-0.7) k/uL Basophils # (0-0.2) k/uL PT 9.9 (9.0-12.0) sec INR 1.0 (<1.2) APTT 24.8 (22.0-30.0) sec Sodium (137-145) mmol/L Potassium (3.5-5.1) mmol/L Chloride (98-107) mmol/L Carbon Dioxide (22-30) mmol/L Anion Gap mmol/L BUN (7-17) mg/dL Creatinine (0.52-1.04) mg/dL Est GFR (CKD-EPI)AfAm (>60 ml/min/1.73 sqM) Est GFR (CKD-EPI)NonAf (>60 ml/min/1.73 sqM) Glucose (74-99) mg/dL Plasma Lactic Acid Timothy 1.5 (0.7-2.0) mmol/L Calcium (8.4-10.2) mg/dL Total Bilirubin (0.2-1.3) mg/dL AST (14-36) U/L ALT (9-52) U/L Alkaline Phosphatase (38-126) U/L Total Creatine Kinase (30-135) U/L CK-MB (CK-2) (0.0-2.4) ng/mL CK-MB (CK-2) Rel Index Troponin I (0.000-0.034) ng/mL Total Protein (6.3-8.2) g/dL Albumin (3.5-5.0) g/dL Disposition <Lance Villegas - Last Filed: 02/23/18 14:20> Is patient prescribed a controlled substance at d/c from ED?: No Time of Disposition: 14:29 Decision to Admit Reason: Admit from EC Decision Date: 02/23/18 Decision Time: 14:29 <Velma Cruz - Last Filed: 02/23/18 17:02> Clinical Impression: Cellulitis diffuse, face Disposition: ADMITTED IP TO THIS HOSP Condition: Stable
[2018-02-23] MEDS ORDERED: FAMOTIDINE 20 MG/2 ML VIAL IV STA (11:08)
[2018-02-23] MEDS ORDERED: methylPREDNISolone SOD SUCCI 125 MG/2 ML VIAL IV STA (11:08)
[2018-02-23] MEDS ORDERED: diphenhydrAMINE 50 MG/ML 1 ML VIAL IVP STA (11:08)
[2018-02-23 11:59] LABS: Basophils % (A) 0 %; Eosinophils % (A) 0 %; HCT 43.1 % (34.0-46.0); HGB 14.3 gm/dL (11.4-16.0); Lymphocytes # (A) 0.6 k/uL (1.0-4.8); Lymphocytes % (A) 7 %; MCH 31.1 pg (25.0-35.0); MCHC 33.2 g/dL (31.0-37.0); MCV 93.6 fL (80.0-100.0); Mean Platelet Volume 7.1; Monocytes # (A) 0.4 k/uL (0-1.0); Monocytes % (A) 5 %; Neutrophils # (A) 7.9 k/uL (1.3-7.7); Neutrophils % (A) 87 %; Platelet Count 186 k/uL (150-450); RDW 13.3 % (11.5-15.5)
[2018-02-23 12:02] LABS: ALT 28 U/L (9-52); AST 23 U/L (14-36); Albumin 3.8 g/dL (3.5-5.0); Alkaline Phosphatase 79 U/L (38-126); Anion Gap 5 mmol/L; Blood Urea Nitrogen 17 mg/dL (7-17); Calcium 9.1 mg/dL (8.4-10.2); Carbon Dioxide 29 mmol/L (22-30); Chloride 108 mmol/L (98-107); Glucose 126 mg/dL (74-99); Potassium 3.9 mmol/L (3.5-5.1); Sodium 142 mmol/L (137-145); Total Bilirubin 0.4 mg/dL (0.2-1.3); Total Protein 6.7 g/dL (6.3-8.2)
[2018-02-23 12:12] LABS: Partial Thromboplastin Time 24.8 sec (22.0-30.0); Prothrombin Time 9.9 sec (9.0-12.0)
[2018-02-23 12:21] LABS: Creatine Kinase 32 U/L (30-135)
--- NOTE | 2018-02-23 12:31 | XR ---
EXAMINATION TYPE: XR chest 2V DATE OF EXAM: 02/23/2018 COMPARISON: Prior chest x-ray 05/21/2011 HISTORY: Facial and tongue swelling TECHNIQUE: Frontal and lateral views of the chest are obtained. FINDINGS: There is interval improvement in aeration at the lung bases. Interval placement of a proba ble loop recorder over the heart. Multiple metallic snaps are overlying the patient. Cardiac mediasti nal silhouette, pulmonary vascularity and darlene are within normal limits. No evident airspace disease, pneumothorax, or pleural effusion. IMPRESSION: There is improvement in aeration at the lung bases. Some minimal residual atelectatic ch joce or scarring may be present.
[2018-02-23 12:33] LABS: Creatine Kinase MB <0.2 ng/mL (0.0-2.4); Troponin I <0.012 ng/mL (0.000-0.034)
[2018-02-23] MEDS ORDERED: CALCIUM CARB-VIT D 500MG-200UN 1 EACH TAB PO STA (13:46)
[2018-02-23] MEDS ORDERED: ONDANSETRON 4 MG/2 ML VIAL IVP PRN (14:25)
[2018-02-23] MEDS ORDERED: HYDROcodone/APAP 5-325MG 1 EACH TAB PO PRN (14:25)
[2018-02-23] MEDS ORDERED: NALOXONE 0.4 MG/ML 1 ML VIAL IV PRN (14:25)
[2018-02-23] MEDS ORDERED: VANCOMYCIN IV PER PHARMACY 1 EACH MISC MISCELLANE PRN (14:27)
[2018-02-23] MEDS ORDERED: PIPERACILLIN-TAZOBACTAM 3.375 GM in SODIUM CHLORIDE 0.9% 100 ML IVPB STA (14:27)
[2018-02-23] MEDS ORDERED: VANCOMYCIN 1,250 MG in SODIUM CHLORIDE 0.9% 250 ML IVPB STA (14:31)
[2018-02-23] MEDS ORDERED: clonazePAM 1 MG TAB PO PRN (21:31)
[2018-02-23] MEDS ORDERED: PRAVASTATIN SODIUM 20 MG TAB PO SCH (21:45)
[2018-02-23] MEDS: POTASSIUM CHLORIDE ER 20 MEQ TAB.ER PO SCH (22:05)
[2018-02-23] MEDS: PREGABALIN 75 MG CAP PO SCH (22:05)
[2018-02-23] MEDS: FAMOTIDINE 20 MG TAB PO SCH (22:05)
[2018-02-23] MEDS ORDERED: MELOXICAM 7.5 MG TAB PO PRN (23:44)
[2018-02-24] MEDS: diphenhydrAMINE 25 MG CAP PO SCH ×3 (00:23→12:35)
[2018-02-24] MEDS: predniSONE 20 MG TAB PO SCH ×2 (00:23→07:39)
[2018-02-24] MEDS ORDERED: VANCOMYCIN 1,250 MG in SODIUM CHLORIDE 0.9% 250 ML IVPB SCH (06:00)
[2018-02-24] MEDS: CALCIUM CARB-VIT D 500MG-200UN 1 EACH TAB PO SCH ×2 (07:37→12:33)
[2018-02-24] MEDS: FAMOTIDINE 20 MG TAB PO SCH (07:38)
[2018-02-24] MEDS: POTASSIUM CHLORIDE ER 20 MEQ TAB.ER PO SCH (07:39)
--- NOTE | 2018-02-24 07:39 | HP ---
HISTORY AND PHYSICAL DATE OF ADMISSION: 02/23/2018 DATE OF SERVICE: 02/23/2018 PRESENTING COMPLAINT: Redness of the neck. HISTORY OF PRESENTING COMPLAINT: This is a very pleasant 67-year-old patient who follows with Dr. Vu. Chronic stable medical conditions include fibromyalgia, GERD, hyperlipidemia, osteoarthritis and varicose veins. Two days ago she was sitting. She felt as if there was an insect bite, first on the right side of the neck and then on the left side of neck. Later on the next day, she felt she may have had like the flu, having some sweating and feeling a bit hot and cold. She noticed some tongue swelling and came to the ER with some redness and flushing on the face, back of the neck. The patient in the ER did receive IV Pepcid, IV Benadryl, IV Solu-Medrol and also received vanco and IV Zosyn as there may be infection. By the time I got to see the patient, the patient's redness, swelling had greatly improved. The patient in fact had had 2 sandwiches. Overall feeling better. No obvious fever was documented. The patient does smoke cigarette. Does feel better. The tongue swelling, what she has had before has also gone down, no wheezing. REVIEW OF SYSTEMS: CONSTITUTIONAL: Tired. HEENT: As above. RESPIRATORY: None. CARDIOVASCULAR: None. GASTROINTESTINAL: Heartburn. GENITOURINARY: None. MUSCULOSKELETAL: Pain in the joints. DERMATOLOGICAL: As above. LYMPHATICS: None. PSYCHIATRY: None. NEUROLOGICAL: None. PAST MEDICAL HISTORY: Past medical history of fibromyalgia, GERD, hyperlipidemia, osteoarthritis, varicose veins, questionable TIA, primary hyperparathyroidism with right inferior parathyroidectomy, osteoporosis. PAST SURGICAL HISTORY: Hysterectomy, tonsillectomy, tubal ligation, surgery left eye fir double vision, right inferior parathyroidectomy. PSYCH HISTORY: Anxiety, depression. SOCIAL HISTORY: Lives by herself. Smoked for close to 30 years was smoking 2 packs a day now down to half a pack a day. No alcohol. FAMILY HISTORY: Breast cancer. HOME MEDICATIONS: 1. Vitamin B complex 1 capsule p.o. daily. 2. Zantac 150 mg p.o. b.i.d. 3. Lyrica 75 mg b.i.d. 4. Pravachol 20 mg q.h.s. 5. Klor-Con 20 mEq p.o. b.i.d. 6. Paxil 60 mg p.o. daily. 7. Mobic 7.5 p.o. b.i.d. p.r.n. 8. Klonopin 0.5 to 1 mg p.o. q.i.d. p.r.n. 9. Vitamin D2, 50,000 units p.o. on Friday. 10.Plavix 75 mg p.o. daily. 11.Vitamin D with Os-Jay 1 tablet p.o. t.i.d. 12.Norvasc 5 mg p.o. daily. 13.Vitamin C 500 mg p.o. daily. 14.Colace. 15.Fosamax weekly. ALLERGIES: Allergies to AMMONIUM, CAMPHOR, MENTHOL, OXYBUTYNIN, PHENOL, SALICYLIC ACID. PHYSICAL EXAMINATION: On exam, vital signs on presentation: Temperature 98.8, pulse 89, respiration 18, blood pressure 142/68, pulse ox 96% on room air. GENERAL APPEARANCE: Average built, sitting up, not in distress. EYES: Pupils equal. Conjunctivae normal. HENT: External appearance of nose and ears normal. Oral cavity, no tongue swelling. There is no insect bite or puncture sites at the back of the neck. Very slight redness if any on the right side of the face, very subtle. No tenderness. RESPIRATORY: Effort normal. LUNGS: Decreased breath sounds. CARDIOVASCULAR: First and second sounds normal. No edema. ABDOMEN: Soft, nontender. Liver and spleen not palpable. LYMPHATIC: No lymph node palpable of the neck or axillae. PSYCHIATRY: Alert and oriented x3. Mood and affect normal. NEUROLOGICAL: Pupils equal. Cranial nerves grossly intact. Power and sensation grossly intact. INVESTIGATIONS: White count 9, hemoglobin 14.3. Potassium 3.9. BUN and creatinine normal. Chest x-ray film, personally reviewed by me, shows no obvious infiltrate. ASSESSMENT: 1. This patient presented with what appears to may have insect bite, patient with local allergic reaction. The patient has received H2 chelsey, H1 chelsey, steroids in the ER and seems to have responded well to the same with the initial thought about infection, but really there is no fever, no white count and if there was some secondary infection it is already responded to the vancomycin and Zosyn that the patient has received and clinically looks rather much responding rather good. 2. Chronic fibromyalgia. 3. Gastroesophageal reflux disease. 4. Hyperlipidemia. 5. Primary osteoarthritis. 6. Varicose veins. PLAN: Home medications will be resumed. The patient will be switched to oral Benadryl, Pepcid, and oral prednisone. Will DC the vancomycin and Zosyn and give a short course of Keflex. Care was discussed with the patient. Questions were answered. Patient should be hopefully be discharged home tomorrow and the patient will be switched to observation status. MMODL / IJN: [id number] /
[2018-02-24] MEDS: PREGABALIN 75 MG CAP PO SCH (07:44)
[2018-02-24] MEDS ORDERED: DOCUSATE 100 MG CAP PO SCH (09:00)
[2018-02-24] MEDS ORDERED: ASCORBIC ACID 500 MG TAB PO SCH (09:00)
[2018-02-24] MEDS ORDERED: amLODIPine 5 MG TAB PO SCH (09:00)
[2018-02-24] MEDS ORDERED: NON-FORMULARY DRUG (Vitamin B Complex [Vitamin B Complex] 1 CAP) PO SCH (09:00)
[2018-02-24] MEDS ORDERED: ENOXAPARIN 40 MG/0.4 ML SYRINGE SQ SCH (09:00)
[2018-02-24] MEDS ORDERED: CLOPIDOGREL 75 MG TAB PO SCH (09:00)
[2018-02-24] MEDS ORDERED: PARoxetine 20 MG TAB PO SCH (09:00)
[2018-02-24] MEDS ORDERED: CEPHALEXIN 500 MG CAP PO SCH (09:00)
[2018-02-24 14:42] VITALS: BP 151/70; PULSE 97; RESP 16; TEMP 98.2
--- NOTE | 2018-02-25 08:08 | DS ---
DISCHARGE SUMMARY DATE OF ADMISSION: 02/23/2018. DATE OF DISCHARGE: 02/24/2018 FINAL DIAGNOSES: 1. Acute allergic reaction, possibly from insect bite secondary infection less likely. 2. Chronic fibromyalgia. 3. Gastroesophageal reflux disease. 4. Hyperlipidemia. 5. Primary osteoarthritis. 6. Varicose veins. HOSPITAL COURSE: This patient presented with swelling, redness around the neck. It was felt to be from insect bite. Patient was given antihistaminics, steroids, H2 chelsey, and empirically some antibiotics. When I saw her the night before, she was already improving. This morning doing rather well, back to normal self. Care was discussed with the patient. She will be given a short burst of steroids, H2 chelsey, Benadryl, and a very short course of antibiotics. PHYSICAL EXAMINATION: Temperature 98.2, pulse 97, respiratory rate 16, blood pressure 115/70, pulse ox 93 percent on room air. Neck exam is unremarkable. No facial redness. DISCHARGE MEDICATIONS: 1. Fosamax 70 mg p.o. on Friday. 2. Plavix 75 mg a day. 3. Paxil 60 mg a day. 4. Potassium 20 mEq p.o. b.i.d. 5. Pravachol 20 mg p.o. at bedtime. 6. Lyrica 75 mg b.i.d. 7. Zantac 150 mg p.o. b.i.d. 8. Vitamin B complex 1 capsule p.o. daily. 9. Klonopin 0.5-1 mg p.o. q.i.d. p.r.n. 10.Vitamin D2 77563 units p.o. on Friday. 11.Os-Jay 500 with D 1 tab p.o. t.i.d. 12.Vitamin C 500 mg p.o. daily. 13.Norvasc 5 mg p.o. daily. 14.Colace 100 mg p.o. daily. 15.Mobic 7.5 p.o. b.i.d. p.r.n. 16.Keflex 500 mg p.o. t.i.d. 15 capsules. 17.Benadryl 25 mg q.i.d. 8 capsules. 18.Prednisone 30 mg for 1 day, 20 mg for 1 day, 10 mg for 1 day, then stop. Follow up with Dr. Vu in 3 days. MMODL / IJN: [id number] /
== END 2018-02-24 15:36 | disposition home or self-care (01) ==
LOC: EC 10:33 → 4MS4W 14:25 → INTOOBSV 14:25 → 4MS4W 15:54
PROVIDERS: ADMIT Hospitalist; ATTEND Hospitalist
DX: L03.211 Cellulitis of face (principal); E78.5 Hyperlipidemia, unspecified; F17.210 Nicotine dependence, cigarettes, uncomplicated; I10 Essential (primary) hypertension; G43.909 Migraine, unspecified, not intractable, without status migrainosus; G89.29 Other chronic pain; M54.5 Low back pain; F32.9 Major depressive disorder, single episode, unspecified; M19.91 Primary osteoarthritis, unspecified site; M79.7 Fibromyalgia; F41.9 Anxiety disorder, unspecified; I83.90 Asymptomatic varicose veins of unspecified lower extremity; K21.9 Gastro-esophageal reflux disease without esophagitis; L30.9 Dermatitis, unspecified; M81.0 Age-related osteoporosis without current pathological fracture; Z98.42 Cataract extraction status, left eye; Z98.41 Cataract extraction status, right eye; Z86.73 Personal history of transient ischemic attack (TIA), and cerebral infarction without residual deficits; Z79.02 Long term (current) use of antithrombotics/antiplatelets; Z79.83 Long term (current) use of bisphosphonates; Z79.899 Other long term (current) drug therapy; Z80.3 Family history of malignant neoplasm of breast; Z90.710 Acquired absence of both cervix and uterus; Z98.51 Tubal ligation status
CPT/HCPCS: 96366 ×2; 96372; 96368; 96365; 96375; 99285; 36415; 93005; 80053; 82550; 82553; 83605; 84484; 85025; 85610; 85730; 87040; 71046; G0378 ×2; J2543; J3370; J1200; J2930; J1650; J7512

== ENCOUNTER 2019-08-20 16:34 | Emergency (ER) | payer MEDICARE, OTHER ==
[2019-08-20 17:00] VITALS: RESP 18; TEMP 97.8
--- NOTE | 2019-08-20 18:45 | XR ---
EXAMINATION TYPE: XR chest 2V DATE OF EXAM: 08/20/2019 COMPARISON: Prior chest x-ray 02/23/2018 HISTORY: Bilateral leg swelling, abnormal chest x-ray TECHNIQUE: Frontal and lateral views of the chest are obtained. FINDINGS: There is no focal air space opacity, pleural effusion, or pneumothorax seen. The cardiac silhouette size is within normal limits. The osseous structures are intact. There is been interval removal of the recorder over the anterior left chest. No longer other artifacts overlie the chest. IMPRESSION: No acute cardiopulmonary process.
[2019-08-20 18:46] LABS: Basophils % (A) 1 %; Eosinophils # (A) 0.1 k/uL (0-0.7); Eosinophils % (A) 1 %; HCT 44.8 % (34.0-46.0); HGB 14.7 gm/dL (11.4-16.0); Lymphocytes # (A) 1.5 k/uL (1.0-4.8); Lymphocytes % (A) 22 %; MCHC 32.8 g/dL (31.0-37.0); MCV 94.3 fL (80.0-100.0); Mean Platelet Volume 8.2; Monocytes # (A) 0.4 k/uL (0-1.0); Monocytes % (A) 6 %; Neutrophils # (A) 4.7 k/uL (1.3-7.7); Neutrophils % (A) 68 %; Platelet Count 245 k/uL (150-450); RBC 4.75 m/uL (3.80-5.40); WBC 6.9 k/uL (3.8-10.6)
--- NOTE | 2019-08-20 18:46 | XR ---
Right foot HISTORY: Trauma and pain 3 views the right foot Bone mineralization, joint spaces and alignment are maintained. IMPRESSION: No fracture or dislocation.
[2019-08-20 18:48] LABS: ALT 31 U/L (4-34); AST 32 U/L (14-36); African American GFR (CKD) >90 (>60 ml/min/1.73 sqM); Alkaline Phosphatase 87 U/L (38-126); Anion Gap 6 mmol/L; Blood Urea Nitrogen 18 mg/dL (7-17); Calcium 9.3 mg/dL (8.4-10.2); Carbon Dioxide 33 mmol/L (22-30); Chloride 101 mmol/L (98-107); Glucose 124 mg/dL (74-99); Non-African American GFR(CKD) >90 (>60 ml/min/1.73 sqM); Potassium 3.8 mmol/L (3.5-5.1); Sodium 140 mmol/L (137-145); Total Bilirubin 0.2 mg/dL (0.2-1.3)
--- NOTE | 2019-08-20 19:32 | ED ---
Extremity Problem HPI - General Chief complaint: Extremity Problem,Nontraumatic Stated complaint: feet swelling Time Seen by Provider: 08/20/19 17:44 Source: patient Mode of arrival: wheelchair Limitations: no limitations - History of Present Illness Initial comments: 69-year-old female presenting today for chief complaint of bilateral leg swelling. She states that for the past day her legs have been slightly swollen. She states she tripped yesterday and hit her right foot she states she is ambulating without difficultygetting pain she states her symptoms slight bruising. She states she has not feels is related. Patient denies any chest pain shortness of breath or known heart failure. Patient denies hemoptysis history of DVT or pulmonary embolism. Patient states she is on Plavix. Patient has no additional complaints upon arrival she appears well-no acute distress. - Related Data Home Medications Medication Instructions Recorded Confirmed Alendronate Sodium [Fosamax] 70 mg PO WE 04/04/16 10/20/17 Clopidogrel [Plavix] 75 mg PO DAILY 04/04/16 02/23/18 PARoxetine HCL [Paxil] 60 mg PO DAILY 04/04/16 02/23/18 Potassium Chloride [Klor-Con 20] 20 meq PO BID 04/04/16 02/23/18 Pravastatin Sodium [Pravachol] 20 mg PO HS 04/04/16 02/23/18 Pregabalin [Lyrica] 75 mg PO BID 04/04/16 02/23/18 Ranitidine HCl [Zantac] 150 mg PO BID 04/04/16 02/23/18 Vitamin B Complex 1 cap PO DAILY 04/04/16 02/23/18 clonazePAM [KlonoPIN] 0.5 - 1 mg PO QID PRN 04/04/16 02/23/18 Ergocalciferol (Vitamin D2) 50,000 unit PO WE 06/14/16 02/23/18 [Vitamin D2] Calcium Carb-Vit D 500Mg-200Un 1 tab PO TID-W/MEALS 08/02/16 02/23/18 [Oscal 500+D] Ascorbic Acid [Vitamin C] 500 mg PO DAILY 08/03/16 02/23/18 amLODIPine [Norvasc] 5 mg PO DAILY 08/03/16 02/23/18 Meloxicam [Mobic] 7.5 mg PO BID PRN 10/20/17 02/23/18 Previous Rx's Medication Instructions Recorded Docusate Sodium [Dok] 100 mg PO DAILY #20 capsule 10/20/17 Cephalexin [Keflex] 500 mg PO TID #15 cap 02/24/18 diphenhydrAMINE [Benadryl] 25 mg PO QID #8 cap 02/24/18 predniSONE 0 mg PO DIRECTED #6 tab 02/24/18 Allergies Allergy/AdvReac Type Severity Reaction Status Date / Time ammonium alum [From Carmex] Allergy Swelling Verified 02/23/18 10:56 camphor [From Carmex] Allergy Swelling Verified 02/23/18 10:56 menthol [From Carmex] Allergy Swelling Verified 02/23/18 10:56 oxybutynin Allergy Unknown Verified 02/23/18 10:56 phenol [From Carmex] Allergy Swelling Verified 02/23/18 10:56 salicylic acid [From Carmex] Allergy Swelling Verified 02/23/18 10:56 Review of Systems ROS Statement: Those systems with pertinent positive or pertinent negative responses have been documented in the HPI. ROS Other: All systems not noted in ROS Statement are negative. Past Medical History Past Medical History: CVA/TIA, Eye Disorder, Fibromyalgia, GERD/Reflux, Hypertension, Memory Impairment, Osteoarthritis (OA), Thyroid Disorder Additional Past Medical History / Comment(s): MIGRAINES. POSS TIA IN PAST. PARATHYROID ADENOMA. OSTEOPOROSIS. OCC VERTIGO. MILD MEMORY IMPAIRMENT AT TIMES. WALKS W/ CANE. VARICOSE VEINS. fatigue History of Any Multi-Drug Resistant Organisms: None Reported Past Surgical History: Hysterectomy, Tonsillectomy, Tubal Ligation Additional Past Surgical History / Comment(s): SURG LT EYE 1974 FOR DB VISION. EXC CATARACTS YAYO. COLONOSCOPY., thyroidectomy Past Anesthesia/Blood Transfusion Reactions: No Reported Reaction Past Psychological History: Anxiety, Depression Smoking Status: Current every day smoker Past Alcohol Use History: Rare Past Drug Use History: None Reported - Past Family History Mother Family Medical History: Cancer Additional Family Medical History / Comment(s): breast Father Family Medical History: Deep Vein Thrombosis (DVT) Additional Family Medical History / Comment(s): Diabetes runs on father's side of family. General Exam - General Exam Comments Initial Comments: General: The patient is awake and alert, in no distress, and does not appear acutely ill. Eye: +3 mm pupils are equal, round and reactive to light, extra-ocular movements are intact. No nystagmus. There is normal conjunctiva bilaterally. No signs of icterus. Cardiovascular: There is a regular rate and rhythm. No murmur, rub or gallop is appreciated. No JVD Respiratory: Lungs are clear to auscultation, respirations are non-labored, breath sounds are equal. No wheezes, stridor, rales, or rhonchi. Gastrointestinal: Soft, non-distended, non-tender abdomen without masses or organomegaly noted. There is no rebound or guarding present. Musculoskeletal: Normal ROM, no tenderness. Strength 5/5. Sensation intact. DP pulses equal bilaterally 2+. Neurological: A&O x 3. CN II-XII intact grossly, There are no obvious motor or sensory deficits. Coordination appears grossly intact. Speech is normal. Skin: Skin is warm and dry and no rashes or lesions are noted. Mild edema over the lateral malleolus b/l, no calf swelling or pain Psychiatric: Cooperative, appropriate mood & affect, normal judgment. Limitations: no limitations Course Vital Signs 08/20/19 16:56 Temperature 97.8 F Pulse Rate 90 Respiratory 18 Rate Blood Pressure 120/75 O2 Sat by Pulse 97 Oximetry Medical Decision Making - Medical Decision Making 69yo female b//l LE edema. BNP WNL. CXR clear. lungs clear. No SOB. XR foot (-). No pain over forefoot. Patient will be discharged with suspected dependent edema with strict return parameters, instructions to restrict salt/compression stockings/elevate feet. Return for SOB, increasing or unilateral swelling. Patient discharged appearing well. - Lab Data Result diagrams: 08/20/19 18:27 08/20/19 18:27 Lab Results 08/20/19 08/20/19 08/20/19 Range/Units 18:27 18:27 18:27 WBC 6.9 (3.8-10.6) k/uL RBC 4.75 (3.80-5.40) m/uL Hgb 14.7 (11.4-16.0) gm/dL Hct 44.8 (34.0-46.0) % MCV 94.3 (80.0-100.0) fL MCH 31.0 (25.0-35.0) pg MCHC 32.8 (31.0-37.0) g/dL RDW 13.0 (11.5-15.5) % Plt Count 245 (150-450) k/uL Neutrophils % 68 % Lymphocytes % 22 % Monocytes % 6 % Eosinophils % 1 % Basophils % 1 % Neutrophils # 4.7 (1.3-7.7) k/uL Lymphocytes # 1.5 (1.0-4.8) k/uL Monocytes # 0.4 (0-1.0) k/uL Eosinophils # 0.1 (0-0.7) k/uL Basophils # 0.0 (0-0.2) k/uL Sodium 140 (137-145) mmol/L Potassium 3.8 (3.5-5.1) mmol/L Chloride 101 (98-107) mmol/L Carbon Dioxide 33 H (22-30) mmol/L Anion Gap 6 mmol/L BUN 18 H (7-17) mg/dL Creatinine 0.62 (0.52-1.04) mg/dL Est GFR (CKD-EPI)AfAm >90 (>60 ml/min/1.73 sqM) Est GFR (CKD-EPI)NonAf >90 (>60 ml/min/1.73 sqM) Glucose 124 H (74-99) mg/dL Calcium 9.3 (8.4-10.2) mg/dL Total Bilirubin 0.2 (0.2-1.3) mg/dL AST 32 (14-36) U/L ALT 31 (4-34) U/L Alkaline Phosphatase 87 (38-126) U/L NT-Pro-B Natriuret Pep 42 pg/mL Total Protein 7.0 (6.3-8.2) g/dL Albumin 4.0 (3.5-5.0) g/dL Disposition Clinical Impression: Bilateral lower extremity edema, Traumatic ecchymosis of right foot Disposition: HOME SELF-CARE Condition: Good Instructions (If sedation given, give patient instructions): Leg Edema (ED) Additional Instructions: Please use medication as discussed. Please follow-up with family doctor in the next 2 days. Please return to emergency room if the symptoms increase or worsen or for any other concerns. Is patient prescribed a controlled substance at d/c from ED?: No Referrals: Chase Vu, [Primary Care Provider] - 1-2 days Time of Disposition: 19:32
[2019-08-20 20:57] VITALS: BP 121/70; PULSE 67
== END 2019-08-20 20:22 | disposition home or self-care (01) ==
LOC: EC 16:34
DX: S90.31XA Contusion of right foot, initial encounter (principal); R60.0 Localized edema; K21.9 Gastro-esophageal reflux disease without esophagitis; I10 Essential (primary) hypertension; F41.9 Anxiety disorder, unspecified; F32.9 Major depressive disorder, single episode, unspecified; F17.200 Nicotine dependence, unspecified, uncomplicated; Z79.02 Long term (current) use of antithrombotics/antiplatelets; Z79.899 Other long term (current) drug therapy; Z88.8 Allergy status to other drugs, medicaments and biological substances; Z91.048 Other nonmedicinal substance allergy status; Z86.73 Personal history of transient ischemic attack (TIA), and cerebral infarction without residual deficits
CPT/HCPCS: 36415; 71046; 80053; 83880; 85025; 99283

== ENCOUNTER 2019-12-22 02:38 | Observation (INO) | payer MEDICARE, OTHER ==
[2019-12-22 03:21] LABS: Basophils # (A) 0.1 k/uL (0-0.2); Basophils % (A) 1 %; Eosinophils # (A) 0.1 k/uL (0-0.7); Eosinophils % (A) 2 %; HCT 44.7 % (34.0-46.0); HGB 14.7 gm/dL (11.4-16.0); Lymphocytes # (A) 2.1 k/uL (1.0-4.8); Lymphocytes % (A) 29 %; MCH 31.2 pg (25.0-35.0); MCHC 32.8 g/dL (31.0-37.0); MCV 94.9 fL (80.0-100.0); Mean Platelet Volume 8.1; Monocytes # (A) 0.4 k/uL (0-1.0); Monocytes % (A) 5 %; Neutrophils # (A) 4.6 k/uL (1.3-7.7); Neutrophils % (A) 62 %; Platelet Count 231 k/uL (150-450); RBC 4.71 m/uL (3.80-5.40); RDW 13.1 % (11.5-15.5); WBC 7.4 k/uL (3.8-10.6)
[2019-12-22 03:30] LABS: ALT 36 U/L (4-34); AST 37 U/L (14-36); African American GFR (CKD) >90 (>60 ml/min/1.73 sqM); Albumin 5.1 g/dL (3.5-5.0); Alkaline Phosphatase 104 U/L (38-126); Anion Gap 8 mmol/L; Blood Urea Nitrogen 22 mg/dL (7-17); Calcium 9.2 mg/dL (8.4-10.2); Carbon Dioxide 29 mmol/L (22-30); Chloride 103 mmol/L (98-107); Glucose 126 mg/dL (74-99); Magnesium 2.2 mg/dL (1.6-2.3); Non-African American GFR(CKD) >90 (>60 ml/min/1.73 sqM); Potassium 3.8 mmol/L (3.5-5.1); Sodium 140 mmol/L (137-145); Total Bilirubin 0.3 mg/dL (0.2-1.3); Total Protein 6.9 g/dL (6.3-8.2)
[2019-12-22 03:33] LABS: INR 0.9 (<1.2); Partial Thromboplastin Time 26.1 sec (22.0-30.0); Prothrombin Time 9.6 sec (9.0-12.0)
--- NOTE | 2019-12-22 03:57 | XR ---
EXAMINATION TYPE: XR chest 2V DATE OF EXAM: 12/22/2019 COMPARISON: 08/20/2019 HISTORY: Chest pain TECHNIQUE: 2 views FINDINGS: There is no heart failure nor confluent pneumonic infiltrate. Costophrenic angles are clear . There are no hilar masses. Bony thorax is intact. There are chest leads. IMPRESSION: No active cardiopulmonary disease. No change.
[2019-12-22] MEDS ORDERED: NITROGLYCERIN SL TABS 0.4 MG TAB SUBLINGUAL PRN (04:13)
--- NOTE | 2019-12-22 04:57 | ED ---
Chest Pain HPI - General Chief Complaint: Chest Pain Stated Complaint: chest pain Time Seen by Provider: 12/22/19 03:05 Source: patient, EMS Mode of arrival: EMS Limitations: no limitations - History of Present Illness Initial Comments: Ele is a 69-year-old female with a history of hypertension, TIAs in the past who presents to the ER today for evaluation of chest pain. Patient reports that around 2 AM she was getting ready to turn off her computer and go to bed for the night when she developed a heaviness to her chest she became lightheaded and d iaphoretic. She states she checked her blood pressure at this time and noted that she was hypertensive with blood pressure of 190/110. She took 3 aspirin and then used her life alert to alert EMS. Patient reports EMS arrived on scene gave her additional dose of aspirin and sublingual nitro. She reports her chest pain resolved with the nitro and she was transported to the hospital. Patient denies any known history of cardiac disease. - Related Data Home Medications Medication Instructions Recorded Confirmed Alendronate Sodium [Fosamax] 70 mg PO WE 04/04/16 10/20/17 Clopidogrel [Plavix] 75 mg PO DAILY 04/04/16 02/23/18 PARoxetine HCL [Paxil] 60 mg PO DAILY 04/04/16 02/23/18 Potassium Chloride [Klor-Con 20] 20 meq PO BID 04/04/16 02/23/18 Pravastatin Sodium [Pravachol] 20 mg PO HS 04/04/16 02/23/18 Pregabalin [Lyrica] 75 mg PO BID 04/04/16 02/23/18 Ranitidine HCl [Zantac] 150 mg PO BID 04/04/16 02/23/18 Vitamin B Complex 1 cap PO DAILY 04/04/16 02/23/18 clonazePAM [KlonoPIN] 0.5 - 1 mg PO QID PRN 04/04/16 02/23/18 Ergocalciferol (Vitamin D2) 50,000 unit PO WE 06/14/16 02/23/18 [Vitamin D2] Calcium Carb-Vit D 500Mg-200Un 1 tab PO TID-W/MEALS 08/02/16 02/23/18 [Oscal 500+D] Ascorbic Acid [Vitamin C] 500 mg PO DAILY 08/03/16 02/23/18 amLODIPine [Norvasc] 5 mg PO DAILY 08/03/16 02/23/18 Meloxicam [Mobic] 7.5 mg PO BID PRN 10/20/17 02/23/18 Previous Rx's Medication Instructions Recorded Docusate Sodium [Dok] 100 mg PO DAILY #20 capsule 10/20/17 Cephalexin [Keflex] 500 mg PO TID #15 cap 02/24/18 diphenhydrAMINE [Benadryl] 25 mg PO QID #8 cap 02/24/18 predniSONE 0 mg PO DIRECTED #6 tab 02/24/18 Allergies Allergy/AdvReac Type Severity Reaction Status Date / Time ammonium alum [From Carmex] Allergy Swelling Verified 12/22/19 02:46 camphor [From Carmex] Allergy Swelling Verified 12/22/19 02:46 menthol [From Carmex] Allergy Swelling Verified 12/22/19 02:46 oxybutynin Allergy Unknown Verified 12/22/19 02:46 phenol [From Carmex] Allergy Swelling Verified 12/22/19 02:46 salicylic acid [From Carmex] Allergy Swelling Verified 12/22/19 02:46 Review of Systems ROS Statement: Those systems with pertinent positive or pertinent negative responses have been documented in the HPI. ROS Other: All systems not noted in ROS Statement are negative. EKG Findings - EKG Comments: EKG Findings:: EKG was obtained due to complaint of chest pain, EKG was obtained at 2:44 AM, rate is 80 rhythm is sinus there is a normal axis, there are normal intervals, AZ 132, QRS 84, QTC is 454 there are no acute ST elevations or depressions there is no evidence of acute ischemia or infarction. Past Medical History Past Medical History: CVA/TIA, Eye Disorder, Fibromyalgia, GERD/Reflux, Hypertension, Memory Impairment, Osteoarthritis (OA), Thyroid Disorder Additional Past Medical History / Comment(s): MIGRAINES. POSS TIA IN PAST. PARATHYROID ADENOMA. OSTEOPOROSIS. OCC VERTIGO. MILD MEMORY IMPAIRMENT AT TIMES. WALKS W/ CANE. VARICOSE VEINS. fatigue History of Any Multi-Drug Resistant Organisms: None Reported Past Surgical History: Hysterectomy, Tonsillectomy, Tubal Ligation Additional Past Surgical History / Comment(s): SURG LT EYE 1974 FOR DB VISION. EXC CATARACTS YAYO. COLONOSCOPY., thyroidectomy Past Anesthesia/Blood Transfusion Reactions: No Reported Reaction Past Psychological History: Anxiety, Depression Smoking Status: Current every day smoker Past Alcohol Use History: Rare Past Drug Use History: None Reported - Past Family History Mother Family Medical History: Cancer Additional Family Medical History / Comment(s): breast Father Family Medical History: Deep Vein Thrombosis (DVT) Additional Family Medical History / Comment(s): Diabetes runs on father's side of family. General Exam - General Exam Comments Initial Comments: Physical Exam GENERAL: Patient is well-developed and well-nourished. Patient is nontoxic and well- hydrated and is in no distress. HENT: Normocephalic, Atraumatic. EYES: PERRL, EOMI PULMONARY: Unlabored respirations. No audible rales rhonchi or wheezing was noted. CARDIOVASCULAR: There is a regular rate and rhythm without any murmurs gallops or rubs. ABDOMEN: Soft and nontender with normal bowel sounds. SKIN: Skin is clear with no lesions or rashes and otherwise unremarkable. : Deferred NEUROLOGIC: Patient is alert and oriented x3 poor medical information specialist Moving all extremities spontaneously MUSCULOSKELETAL: Normal extremities with adequate strength and full range of motion. No lower extremity swelling or edema. No calf tenderness. PSYCHIATRIC: Normal psychiatric evaluation. Limitations: no limitations Course Vital Signs 12/22/19 12/22/19 02:39 04:00 Temperature 98.5 F Pulse Rate 87 80 Respiratory 18 18 Rate Blood Pressure 137/73 122/60 O2 Sat by Pulse 95 95 Oximetry Chest Pain MDM - [facility] Patient was seen and evaluated history is obtained from the patient is an 69-year-old female with a history of TIAs in the past presenting today with chest pain that began at rest and resolved with nitro EKG is nonischemic Labs are unremarkable HEART score 4 Given the patient's age and risk factors we'll plan to please in our observation unit for serial troponins and evaluation by cardiology Disposition Clinical Impression: Chest pain Disposition: ADMITTED IP TO THIS HOSP Condition: Stable Is patient prescribed a controlled substance at d/c from ED?: No
[2019-12-22 07:49] VITALS: BP 148/74; PULSE 80; RESP 20; TEMP 97.7
--- NOTE | 2019-12-22 08:53 | P.HPIM ---
History of Present Illness This is a pleasant 69 years old female with multiple medical problems as below. She smokes cigarettes. Presents because of chest pain which started 2:00 in the morning, on the left side radiating to her shoulder about 8/10 in severity now is completely resolved 0/10, felt nonspecific or something sitting on the chest. No clubbing or dyspnea or dizziness. Vital signs stable, labs including CBC, INR, BMP are unremarkable, glucose 126, liver enzymes slightly up with AST 37 and ALT 36. Troponin is negative. Then 0.012. Chest x-ray: No acute process EKG showed normal sinus rhythm at 80 BPM with no significant ST-T changes In the emergency room she received aspirin 325 mg Review of Systems CONSTITUTIONAL: No fever, no malaise, no fatigue. HEENT: No recent visual problems or hearing problems. Denied any sore throat. CARDIOVASCULAR: No orthopnea, PND, no palpitations, no syncope. PULMONARY: No shortness of breath, no cough, no hemoptysis. GASTROINTESTINAL: No diarrhea, no nausea, no vomiting, no abdominal pain. Normoactive bowel sounds. NEUROLOGICAL: No headaches, no weakness, no numbness. HEMATOLOGICAL: Denies any bleeding or petechiae. GENITOURINARY: Denies any burning micturition, frequency, or urgency. MUSCULOSKELETAL/RHEUMATOLOGICAL: Denies any joint pain, swelling, or any muscle pain. ENDOCRINE: Denies any polyuria or polydipsia. Past Medical History Past Medical History: CVA/TIA, Eye Disorder, Fibromyalgia, GERD/Reflux, H ypertension, Memory Impairment, Osteoarthritis (OA), Thyroid Disorder Additional Past Medical History / Comment(s): MIGRAINES. POSS TIA IN PAST. PARATHYROID ADENOMA. OSTEOPOROSIS. OCC VERTIGO. MILD MEMORY IMPAIRMENT AT TIMES. WALKS W/ CANE. VARICOSE VEINS. fatigue History of Any Multi-Drug Resistant Organisms: None Reported Past Surgical History: Hysterectomy, Tonsillectomy, Tubal Ligation Additional Past Surgical History / Comment(s): SURG LT EYE 1974 FOR DB VISION. EXC CATARACTS YAYO. COLONOSCOPY., thyroidectomy Past Anesthesia/Blood Transfusion Reactions: No Reported Reaction Past Psychological History: Anxiety, Depression Smoking Status: Current every day smoker Past Alcohol Use History: Rare Past Drug Use History: None Reported - Past Family History Mother Family Medical History: Cancer Additional Family Medical History / Comment(s): breast Father Family Medical History: Deep Vein Thrombosis (DVT) Additional Family Medical History / Comment(s): Diabetes runs on father's side of family. Medications and Allergies Home Medications Medication Instructions Recorded Confirmed Type Alendronate Sodium [Fosamax] 70 mg PO WE 04/04/16 10/20/17 History Clopidogrel [Plavix] 75 mg PO DAILY 04/04/16 02/23/18 History PARoxetine HCL [Paxil] 60 mg PO DAILY 04/04/16 02/23/18 History Potassium Chloride [Klor-Con 20] 20 meq PO BID 04/04/16 02/23/18 History Pravastatin Sodium [Pravachol] 20 mg PO HS 04/04/16 02/23/18 History Vitamin B Complex 1 cap PO DAILY 04/04/16 02/23/18 History clonazePAM [KlonoPIN] 0.5 - 1 mg PO QID PRN 04/04/16 02/23/18 History Ergocalciferol (Vitamin D2) 50,000 unit PO WE 06/14/16 02/23/18 History [Vitamin D2] Calcium Carb-Vit D 500Mg-200Un 1 tab PO TID-W/MEALS 08/02/16 02/23/18 History [Oscal 500+D] Ascorbic Acid [Vitamin C] 500 mg PO DAILY 08/03/16 02/23/18 History amLODIPine [Norvasc] 5 mg PO DAILY 08/03/16 02/23/18 History Meloxicam [Mobic] 7.5 mg PO BID PRN 10/20/17 02/23/18 History Docusate Sodium [Dok] 100 mg PO DAILY PRN 12/22/19 12/22/19 History Famotidine [Pepcid] 20 mg PO BID 12/22/19 12/22/19 History Pregabalin [Lyrica] 100 mg PO BID 12/22/19 12/22/19 History Allergies Allergy/AdvReac Type Severity Reaction Status Date / Time ammonium alum [From Carmex] Allergy Swelling Verified 12/22/19 08:33 camphor [From Carmex] Allergy Swelling Verified 12/22/19 08:33 menthol [From Carmex] Allergy Swelling Verified 12/22/19 08:33 oxybutynin Allergy Unknown Verified 12/22/19 08:33 phenol [From Carmex] Allergy Swelling Verified 12/22/19 08:33 salicylic acid [From Carmex] Allergy Swelling Verified 12/22/19 08:33 Physical Exam Vitals: Vital Signs Temp Pulse Pulse Resp BP BP Pulse Ox 12/22/19 05:21 76 16 12/22/19 05:14 98.1 F 76 16 136/76 96 12/22/19 04:00 80 18 122/60 95 12/22/19 02:39 98.5 F 87 18 137/73 95 Intake and Output 12/21/19 12/22/19 12/22/19 22:59 06:59 14:59 Other: Voiding Method Toilet # Voids 1 Weight 74.843 kg GENERAL: The patient is alert and oriented x3, not in any acute distress. Well developed, well nourished. HEENT: Pupils are round and equally reacting to light. EOMI. No scleral icterus. No conjunctival pallor. Normocephalic, atraumatic. No pharyngeal erythema. No thyromegaly. CARDIOVASCULAR: S1 and S2 present. No murmurs, rubs, or gallops. PULMONARY: Chest is clear to auscultation, no wheezing or crackles. ABDOMEN: Soft, nontender, nondistended, normoactive bowel sounds. No palpable organomegaly. MUSCULOSKELETAL: No joint swelling or deformity. EXTREMITIES: No cyanosis, clubbing, or pedal edema. NEUROLOGICAL: Gross neurological examination did not reveal any focal deficits. SKIN: No rashes. No petechiae Results CBC & Chem 7: 12/22/19 03:06 12/22/19 03:06 Labs: Abnormal Lab Results - Last 24 Hours (Table) 12/22/19 Range/Units 03:06 BUN 22 H (7-17) mg/dL Glucose 126 H (74-99) mg/dL AST 37 H (14-36) U/L ALT 36 H (4-34) U/L Albumin 5.1 H (3.5-5.0) g/dL Thrombosis Risk Factor Assmnt - Choose All That Apply Any of the Below Risk Factors Present?: Yes Each Factor Represents 1 point: Varicose veins Each Risk Factor Represents 2 Points: Age 61-74 years Thrombosis Risk Factor Assessment Total Risk Factor Score: 3 Thrombosis Risk Factor Assessment Level: Moderate Risk Assessment and Plan Assessment: Chest pain, rule out cardiac causes Nicotine dependence Hypertension Hypothyroidism Fibromyalgia Gastroesophageal reflux disease Osteoarthritis Memory impairment Migraine Occasional vertigo Anxiety and depression, not an active disease Plan: This is a pleasant 69 years old female who presents with chest pain.Serial troponin, cardiology consult. Echocardiogram and continue with aspirin. Labs and medication were reviewed.. Continue same treatment. Continue with symptomatic treatment. Resume home medication. Monitor lytes and vitals. DVT and GI prophylaxis. Further recommendations of the clinical course of the patient DVT prophylaxis: Subcutaneous heparin GI Prophylaxis: Pepcid Prognosis is guarded
[2019-12-22] MEDS ORDERED: HEPARIN SODIUM,PORCINE 5,000 UNIT/ML 1 ML VIAL SQ SCH (09:00)
[2019-12-22] MEDS ORDERED: FAMOTIDINE 20 MG/2 ML VIAL IV SCH (09:00)
[2019-12-22] MEDS ORDERED: CAFFEINE CITRATE 60 MG/3 ML VIAL IV PRN (09:17)
[2019-12-22] MEDS ORDERED: AMINOPHYLLINE 500 MG/20 ML VIAL IV PRN (09:17)
[2019-12-22] MEDS ORDERED: REGADENOSON 0.4 MG/5 ML SYRINGE IV ONE (09:17)
[2019-12-22] MEDS ORDERED: clonazePAM 1 MG TAB PO PRN (09:33)
[2019-12-22] MEDS ORDERED: DOCUSATE 100 MG CAP PO PRN (09:33)
--- NOTE | 2019-12-22 09:39 | P.CRDCN ---
History of Present Illness History of present illness: HISTORY OF PRESENTING ILLNESS This is a pleasant 69-year-old female past medical history significant for hypertension, dyslipidemia, TIA and chronic nicotine dependence. She foll ows in the office with Dr. Larson. We have been asked to see in consultation for chest pain. She states last night getting up from sitting at the computer around 0200 and felt an acute onset of chest pressure across the chest that radiated to her up back on both sides associated with diaphoresis. She checked her blood pressure and at the time her blood pressure was 190/80. She took 3 baby aspirin and sat down. Her discomfort lasted for 20-30 minutes and subsided on its own. Upon arrival to the emergency department her pain had completely subsided. She has had no further chest discomfort since arriving at the hospital. She underwent a Lexiscan stress test in the office in 2012 that was negative for reversible cardiac ischemia. Most recent echocardiogram obtained in the office October 2018 revealed preserved LV systolic function with no evidence of wall motion abnormalities with mild TR and mild MR. Ejection fraction was 60%. DIAGNOSTICS EKG reveals sinus mechanism with no acute ST or T wave abnormalities noted. Chest xray negative for an acute cardiopulmonary process. Laboratory reviewed, CBC unremarkable, sodium 140, potassium 3.8, creatinine 0.66, magnesium 2.2, cardiac enzymes negative 2 and an T proBNP 41. Current cardiac medications include amlodipine 5 mg daily and pravastatin 20 mg daily. She is also on Plavix per neurology secondary to history of TIA.. REVIEW OF SYSTEMS At the time of my exam: CONSTITUTIONAL: Denies fever or chills. CARDIOVASCULAR: Denies chest pain, shortness of breath, orthopnea, PND or palpitations. RESPIRATORY: Denies cough. GASTROINTESTINAL: Denies abdominal pain, diarrhea, constipation, nausea or vomiting. MUSCULOSKELETAL: Denies myalgias. NEUROLOGIC: Denies numbness, tingling or weakness. ENDOCRINE: Denies fatigue, weight change, polydipsia or polyurina. GENITOURINARY: Denies burning, hematuria or urgency with micturation. HEMATOLOGIC: Denies history of anemia or bleeding. PHYSICAL EXAMINATION Blood pressure 148/74 heart rate 80 afebrile and maintaining oxygen saturation on room air. CONSTITUTIONAL: No apparent distress. HEENT: Head is normocephalic. Pupils are equal, round. Sclerae anicteric. Mucous membranes of the mouth are moist. No JVD. No carotid bruit. CHEST EXAMINATION: Lungs are clear to auscultation. No chest wall tenderness is noted on palpation or with deep breathing. HEART EXAMINATION: Regular rate and rhythm. S1, S2 heard. No murmurs, gallops or rub. ABDOMEN: Soft, nontender. Positive bowel sounds. EXTREMITIES: 2+ peripheral pulses, no lower extremity edema and no calf tenderness. NEUROLOGIC EXAMINATION: Patient is awake, alert and oriented x3. ASSESSMENT Pain, atypical for angina. An acute coronary event has been ruled out Hypertension Dyslipidemia History of TIA Chronic nicotine dependence PLAN An acute coronary event has been ruled out. Obtain 2-D echocardiogram and Doppler study to assess cardiac structure and function. Perform Lexiscan stress test to assess for reversible cardiac ischemia. Smoking cessation recommended. If stress test is normal she may be discharged from a cardiac perspective. Thank you kindly for this consultation. Nurse Practitioner note has been reviewed, I agree with a documented findings and plan of care. Patient was seen and examined. Past Medical History Past Medical History: CVA/TIA, Eye Disorder, Fibromyalgia, GERD/Reflux, Hypertension, Memory Impairment, Osteoarthritis (OA), Thyroid Disorder Additional Past Medical History / Comment(s): MIGRAINES. POSS TIA IN PAST. PA RATHYROID ADENOMA. OSTEOPOROSIS. OCC VERTIGO. MILD MEMORY IMPAIRMENT AT TIMES. WALKS W/ CANE. VARICOSE VEINS. fatigue History of Any Multi-Drug Resistant Organisms: None Reported Past Surgical History: Hysterectomy, Tonsillectomy, Tubal Ligation Additional Past Surgical History / Comment(s): SURG LT EYE 1974 FOR DB VISION. EXC CATARACTS YAYO. COLONOSCOPY., thyroidectomy Past Anesthesia/Blood Transfusion Reactions: No Reported Reaction Past Psychological History: Anxiety, Depression Smoking Status: Current every day smoker Past Alcohol Use History: Rare Past Drug Use History: None Reported - Past Family History Mother Family Medical History: Cancer Additional Family Medical History / Comment(s): breast Father Family Medical History: Deep Vein Thrombosis (DVT) Additional Family Medical History / Comment(s): Diabetes runs on father's side of family. Medications and Allergies Home Medications Medication Instructions Recorded Confirmed Type Alendronate Sodium [Fosamax] 70 mg PO WE 04/04/16 12/22/19 History Clopidogrel [Plavix] 75 mg PO DAILY 04/04/16 12/22/19 History PARoxetine HCL [Paxil] 60 mg PO DAILY 04/04/16 12/22/19 History Potassium Chloride [Klor-Con 20] 20 meq PO BID 04/04/16 12/22/19 History Pravastatin Sodium [Pravachol] 20 mg PO HS 04/04/16 12/22/19 History Vitamin B Complex 1 cap PO DAILY 04/04/16 12/22/19 History clonazePAM [KlonoPIN] 1 mg PO QID PRN 04/04/16 12/22/19 History Ergocalciferol (Vitamin D2) 50,000 unit PO Q60D 06/14/16 12/22/19 History [Vitamin D2] Calcium Carb-Vit D 500Mg-200Un 1 tab PO DAILY 08/02/16 12/22/19 History [Oscal 500+D] Ascorbic Acid [Vitamin C] 500 mg PO DAILY 08/03/16 12/22/19 History amLODIPine [Norvasc] 5 mg PO DAILY 08/03/16 12/22/19 History Docusate Sodium [Dok] 100 mg PO DAILY PRN 12/22/19 12/22/19 History Famotidine [Pepcid] 20 mg PO BID 12/22/19 12/22/19 History Pregabalin [Lyrica] 100 mg PO BID 12/22/19 12/22/19 History Allergies Allergy/AdvReac Type Severity Reaction Status Date / Time ammonium alum [From Carmex] Allergy Swelling Verified 12/22/19 08:33 camphor [From Carmex] Allergy Swelling Verified 12/22/19 08:33 menthol [From Carmex] Allergy Swelling Verified 12/22/19 08:33 oxybutynin Allergy Unknown Verified 12/22/19 08:33 phenol [From Carmex] Allergy Swelling Verified 12/22/19 08:33 salicylic acid [From Carmex] Allergy Swelling Verified 12/22/19 08:33 Physical Exam Vitals: Vital Signs Temp Pulse Pulse Resp BP BP Pulse Ox 12/22/19 07:48 97.7 F 80 20 148/74 93 L 12/22/19 05:21 76 16 12/22/19 05:14 98.1 F 76 16 136/76 96 12/22/19 04:00 80 18 122/60 95 12/22/19 02:39 98.5 F 87 18 137/73 95 Intake and Output 12/21/19 12/22/19 12/22/19 22:59 06:59 14:59 Other: Voiding Method Toilet # Voids 1 Weight 74.843 kg Results 12/22/19 03:06 12/22/19 03:06 Cardiac Enzymes 12/22/19 12/22/19 Range/Units 03:06 03:06 AST 37 H (14-36) U/L Troponin I <0.012 (0.000-0.034) ng/mL Coagulation 12/22/19 Range/Units 03:06 PT 9.6 (9.0-12.0) sec APTT 26.1 (22.0-30.0) sec CBC 12/22/19 Range/Units 03:06 WBC 7.4 (3.8-10.6) k/uL RBC 4.71 (3.80-5.40) m/uL Hgb 14.7 (11.4-16.0) gm/dL Hct 44.7 (34.0-46.0) % Plt Count 231 (150-450) k/uL Comprehensive Metabolic Panel 12/22/19 Range/Units 03:06 Sodium 140 (137-145) mmol/L Potassium 3.8 (3.5-5.1) mmol/L Chloride 103 (98-107) mmol/L Carbon Dioxide 29 (22-30) mmol/L BUN 22 H (7-17) mg/dL Creatinine 0.66 (0.52-1.04) mg/dL Glucose 126 H (74-99) mg/dL Calcium 9.2 (8.4-10.2) mg/dL AST 37 H (14-36) U/L ALT 36 H (4-34) U/L Alkaline Phosphatase 104 (38-126) U/L Total Protein 6.9 (6.3-8.2) g/dL Albumin 5.1 H (3.5-5.0) g/dL Current Medications Generic Name Dose Route Start Last Admin Trade Name Freq PRN Reason Stop Dose Admin Aspirin 325 mg 12/23/19 09:00 Aspirin PO DAILY [facility] Famotidine 20 mg 12/22/19 09:00 Pepcid IV Q12HR CELSO Heparin Sodium (Porcine) 5,000 unit 12/22/19 09:00 Heparin SQ Q12HR [facility] Nitroglycerin 0.4 mg 12/22/19 04:13 Nitrostat SUBLINGUAL Q5M PRN Chest Pain Intake and Output 12/21/19 12/22/19 12/22/19 22:59 06:59 14:59 Other: Voiding Method Toilet # Voids 1 Weight 74.843 kg 12/22/19 03:06 12/22/19 03:06
[2019-12-22] MEDS ORDERED: CLOPIDOGREL 75 MG TAB PO SCH (09:45)
[2019-12-22] MEDS ORDERED: NON FORMULARY DRUG (Alendronate Sodium [Fosamax] 70 MG) PO SCH (09:45)
[2019-12-22] MEDS ORDERED: amLODIPine 5 MG TAB PO SCH (09:45)
[2019-12-22] MEDS ORDERED: PARoxetine 20 MG TAB PO SCH (09:45)
--- NOTE | 2019-12-22 12:06 | NM ---
EXAMINATION TYPE: NM stress lexiscan cardiolite DATE OF EXAM: 12/22/2019 COMPARISON: NONE HISTORY: 69-year-old female with chest pain, hypertension, TIA, hypercholesterolemia, family history of heart disease, numbness to the face and neck, and 23 pack-year history of smoking. TECHNIQUE: After the intravenous administration of 9.8 mCi Tc 99m Sestamibi - Cardiolite resting SPE CT images acquired 45 minutes post injection. The patient received 0.4mg Lexiscan, 25.1 mCi Tc 99m Sestamibi - Stress images obtained [address] injection FINDINGS: Review of stress and rest SPECT images demonstrates no distinct perfusion abnormality. Gated analysi s shows normal wall motion with an estimated left ventricular ejection fraction of 66 %. TID is calc ulated at 1.14, upper limits of normal. IMPRESSION: No convincing scintigraphic evidence for reversible ischemia.
--- NOTE | 2019-12-22 12:47 | P.STRESS ---
- Stress Test Note Stress Test Results/Findings: Exam Performed: NM stress lexiscan cardiolite Exam Date: 12/22/19 Reason for Exam: CHEST PAIN Height: 5 ft 5 in Weight: 74.84 kg Protocol: LEXISCAN Stage: N/A Duration of Exercise: 6 MINUTES Resting Heart Rate: 75 Resting Blood Pressure: 137/52 Maximum Achieved Heart Rate: 101 Maximum Achieved Blood Pressure: 179/75 85% PMHR: 130 100% PMHR: 153 METS: N/A Technologist Comment: Stress Test Results/Findings: This is a 69-year-old female with history of hypertension, hypercholesterolemia, family history of ischemic heart disease and smoking history. Being evaluated for chest pain. Stress data: Baseline EKG showed sinus rhythm with normal [place] interval and QRS duration. Blood pressure at rest is 137/52 with pulse rate of 75. A standard dose of Lexiscan was infused. EKGs taken during and after the infusion did not reveal any significant changes from the baseline. Final impression: #1. Negative Lexiscan stress test #2. Report on the nuclear portion of the test to be provided by radiologist
[2019-12-22 12:50] LABS: Cholesterol 180 mg/dL (<200); HDL Cholesterol 43 mg/dL (40-60); LDL Cholesterol,Calculated 76 mg/dL (0-99); Triglycerides 304 mg/dL (<150)
--- NOTE | 2019-12-22 13:01 | ECHOF ---
Referral Reason: MEASUREMENTS -------- HEIGHT: 165.1 cm WEIGHT: 74.8 kg BP: 136/76 RVIDd: 2.6 cm (< 3.3) IVSd: 1.2 cm (0.6 - 1.1) LVIDd: 4.2 cm (3.9 - 5.3) LVPWd: 1.2 cm (0.6 - 1.1) IVSs: 1.6 cm LVIDs: 2.8 cm LVPWs: 1.5 cm LA Diam: 2.9 cm (2.7 - 3.8) LAESV Index (A-L): 20.33 ml/m Ao Diam: 3.1 cm (2.0 - 3.7) AV Cusp: 2.2 cm (1.5 - 2.6) MV EXCURSION: 11.236 mm (> 18.000) MV EF SLOPE: 47 mm/s (70 - 150) EPSS: 0.6 cm MV E Pedrito: 0.68 m/s MV DecT: 197 ms MV A Pedrito: 0.69 m/s MV E/A Ratio: 0.98 RAP: 5.00 mmHg RVSP: 29.84 mmHg FINDINGS -------- Sinus rhythm. This was a technically adequate study. The left ventricular size is normal. There is borderline concentric left ventricular hypertrophy. Overall left ventricular systolic function is normal with, an EF between 60 - 65 %. The right ventricle is normal in size. Normal LA size by volume 22+/-6 ml/m2. The right atrium is normal in size. Interatrial and interventricular septum intact. The aortic valve is trileaflet and appears structurally normal. The mitral valve is normal. Mild tricuspid regurgitation present. Right ventricular systolic pressure is normal at < 35 mmHg. The pulmonic valve was not well visualized. The aortic root size is normal. Normal inferior vena cava with normal inspiratory collapse consistent with estimated right atrial pre ssure of 5 mmHg. There is no pericardial effusion. CONCLUSIONS -------- 1. The left ventricular size is normal. 2. There is borderline concentric left ventricular hypertrophy. 3. Overall left ventricular systolic function is normal with, an EF between 60 - 65 %. 4. Mild tricuspid regurgitation present. 5. There is no pericardial effusion. [employer] MECHANIC: Airam Rice RDCS
--- NOTE | 2019-12-22 13:28 | EST ---
Stress Test Results/Findings: Exam Performed: NM stress lexiscan cardiolite Exam Date: 12/22/19 Reason for Exam: CHEST PAIN Height: 5 ft 5 in Weight: 74.84 kg Protocol: LEXISCAN Stage: N/A Duration of Exercise: 6 MINUTES Resting Heart Rate: 75 Resting Blood Pressure: 137/52 Maximum Achieved Heart Rate: 101 Maximum Achieved Blood Pressure: 179/75 85% PMHR: 130 100% PMHR: 153 METS: N/A Technologist Comment: Stress Test Results/Findings: This is a 69-year-old female with history of hypertension, hypercholesterolemia, family history of ischemic heart disease and smoking history. Being evaluated for chest pain. Stress data: Baseline EKG showed sinus rhythm with normal [place] interval and QRS duration. Blood pressure at rest is 137/52 with pulse rate of 75. A standard dose of Lexiscan was infused. EKGs taken during and after the infusion did not reveal any significant changes from the baseline. Final impression: #1. Negative Lexiscan stress test #2. Report on the nuclear portion of the test to be provided by radiologist CARINA
[2019-12-22] MEDS ORDERED: PREGABALIN 100 MG CAP PO SCH (21:00)
[2019-12-22] MEDS ORDERED: POTASSIUM CHLORIDE ER 20 MEQ TAB.ER PO SCH (21:00)
[2019-12-22] MEDS ORDERED: PRAVASTATIN SODIUM 20 MG TAB PO SCH (21:00)
[2019-12-23] MEDS ORDERED: ASPIRIN 325 MG TAB PO SCH (09:00)
== END 2019-12-22 14:45 | disposition home or self-care (01) ==
LOC: EC 02:38 → 3NCARDOBS 04:15
PROVIDERS: ADMIT Hospitalist; ATTEND Hospitalist
DX: R07.89 Other chest pain (principal); R42 Dizziness and giddiness; R61 Generalized hyperhidrosis; R53.83 Other fatigue; R41.3 Other amnesia; I10 Essential (primary) hypertension; M79.7 Fibromyalgia; K21.9 Gastro-esophageal reflux disease without esophagitis; M19.90 Unspecified osteoarthritis, unspecified site; G43.909 Migraine, unspecified, not intractable, without status migrainosus; D35.1 Benign neoplasm of parathyroid gland; M81.0 Age-related osteoporosis without current pathological fracture; I83.90 Asymptomatic varicose veins of unspecified lower extremity; F41.9 Anxiety disorder, unspecified; F32.9 Major depressive disorder, single episode, unspecified; E89.0 Postprocedural hypothyroidism; E78.5 Hyperlipidemia, unspecified; F17.210 Nicotine dependence, cigarettes, uncomplicated; Z86.73 Personal history of transient ischemic attack (TIA), and cerebral infarction without residual deficits; Z79.83 Long term (current) use of bisphosphonates; Z79.02 Long term (current) use of antithrombotics/antiplatelets; Z79.899 Other long term (current) drug therapy; Z79.1 Long term (current) use of non-steroidal anti-inflammatories (NSAID); Z91.048 Other nonmedicinal substance allergy status; Z88.8 Allergy status to other drugs, medicaments and biological substances; Z90.710 Acquired absence of both cervix and uterus; Z83.3 Family history of diabetes mellitus; Z82.49 Family history of ischemic heart disease and other diseases of the circulatory system; Z80.3 Family history of malignant neoplasm of breast
CPT/HCPCS: 96372; 96374; 99285; 36415; 93005; 93017; 93306; 83880; 80061; 80053; 83735; 84484; 85025; 85610; 85730; 71046; 78452; G0378; A9500; J1644; J2785

== ENCOUNTER 2020-01-14 21:35 | Observation (INO) | payer MEDICARE, OTHER ==
[2020-01-14] MEDS ORDERED: ASPIRIN 81 MG PO STA (21:37)
[2020-01-14] MEDS ORDERED: MORPHINE SULFATE 4 MG/ML SYRINGE IV PRN (21:37)
[2020-01-14] MEDS ORDERED: NITROGLYCERIN SL TABS 0.4 MG TAB SUBLINGUAL PRN (21:37)
--- NOTE | 2020-01-14 21:42 | ED ---
Chest Pain HPI - General Stated Complaint: chest pain Time Seen by Provider: 01/14/20 21:36 Source: RN notes reviewed, old records reviewed Limitations: no limitations - History of Present Illness Initial Comments: This is a 69-year-old female DF for evaluation patient Dese for evaluation regards to chest pain. Typical chest pain and heaviness left-sided chest to left jaw with diaphoresis and shortness of breath. I blood pressure high cholesterol history of a strong family history. Recent cardiac evaluation that was reportedly negative the patient states the pain is the same at the first time maybe worse MD Complaint: chest pain -: minutes(s) Onset: during rest Pain Location: left chest Pain Radiation: LUE, jaw/teeth Severity: moderate Severity scale (1-10): 5 Quality: heaviness Consistency: constant Improves With: nothing Worsens With: nothing Anginal Symptoms: diaphoresis, dyspnea Treatments Prior to Arrival: none - Related Data Home Medications Medication Instructions Recorded Confirmed Alendronate Sodium [Fosamax] 70 mg PO WE 04/04/16 01/14/20 Clopidogrel [Plavix] 75 mg PO DAILY 04/04/16 01/14/20 PARoxetine HCL [Paxil] 60 mg PO DAILY 04/04/16 01/14/20 Potassium Chloride [Klor-Con 20] 20 meq PO BID 04/04/16 01/14/20 Pravastatin Sodium [Pravachol] 20 mg PO HS 04/04/16 01/14/20 Vitamin B Complex 1 cap PO DAILY 04/04/16 01/14/20 clonazePAM [KlonoPIN] 1 mg PO QID PRN 04/04/16 01/14/20 Ergocalciferol (Vitamin D2) 50,000 unit PO Q60D 06/14/16 01/14/20 [Vitamin D2] Calcium Carb-Vit D 500Mg-200Un 1 tab PO DAILY 08/02/16 01/14/20 [Oscal 500+D] Ascorbic Acid [Vitamin C] 500 mg PO DAILY 08/03/16 01/14/20 amLODIPine [Norvasc] 5 mg PO DAILY 08/03/16 01/14/20 Docusate Sodium [Dok] 100 mg PO DAILY PRN 12/22/19 01/14/20 Famotidine [Pepcid] 20 mg PO BID 12/22/19 01/14/20 Pregabalin [Lyrica] 100 mg PO BID 12/22/19 01/14/20 Allergies Allergy/AdvReac Type Severity Reaction Status Date / Time ammonium alum [From Carmex] Allergy Swelling Verified 01/14/20 22:20 camphor [From Carmex] Allergy Swelling Verified 01/14/20 22:20 menthol [From Carmex] Allergy Swelling Verified 01/14/20 22:20 oxybutynin Allergy Unknown Verified 01/14/20 22:20 phenol [From Carmex] Allergy Swelling Verified 01/14/20 22:20 salicylic acid [From Carmex] Allergy Swelling Verified 01/14/20 22:20 Review of Systems ROS Statement: Those systems with pertinent positive or pertinent negative responses have been documented in the HPI. ROS Other: All systems not noted in ROS Statement are negative. Past Medical History Past Medical History: CVA/TIA, Eye Disorder, Fibromyalgia, GERD/Reflux, Hypertension, Memory Impairment, Osteoarthritis (OA), Thyroid Disorder Additional Past Medical History / Comment(s): MIGRAINES. POSS TIA IN PAST. PARATHYROID ADENOMA. OSTEOPOROSIS. OCC VERTIGO. MILD MEMORY IMPAIRMENT AT TIMES. WALKS W/ CANE. VARICOSE VEINS. fatigue History of Any Multi-Drug Resistant Organisms: None Reported Past Surgical History: Hysterectomy, Tonsillectomy, Tubal Ligation Additional Past Surgical History / Comment(s): SURG LT EYE 1974 FOR DB VISION. EXC CATARACTS YAYO. COLONOSCOPY., thyroidectomy Past Anesthesia/Blood Transfusion Reactions: No Reported Reaction Past Psychological History: Anxiety, Depression Smoking Status: Current every day smoker Past Alcohol Use History: Rare Past Drug Use History: None Reported - Past Family History Mother Family Medical History: Cancer Additional Family Medical History / Comment(s): breast Father Family Medical History: Deep Vein Thrombosis (DVT) Additional Family Medical History / Comment(s): Diabetes runs on father's side of family. General Exam General appearance: alert, in no apparent distress Head exam: Present: atraumatic, normocephalic, normal inspection Eye exam: Present: normal appearance, PERRL, EOMI. Absent: scleral icterus, conjunctival injection, periorbital swelling ENT exam: Present: normal exam, mucous membranes moist Neck exam: Present: normal inspection. Absent: tenderness, meningismus, lymphadenopathy Respiratory exam: Present: normal lung sounds bilaterally. Absent: respiratory distress, wheezes, rales, rhonchi, stridor Cardiovascular Exam: Present: regular rate, normal rhythm, normal heart sounds. Absent: systolic murmur, diastolic murmur, rubs, gallop, clicks GI/Abdominal exam: Present: soft, normal bowel sounds. Absent: distended, tenderness, guarding, rebound, rigid Extremities exam: Present: normal inspection, full ROM, normal capillary refill. Absent: tenderness, pedal edema, joint swelling, calf tenderness Back exam: Present: normal inspection Neurological exam: Present: alert, oriented X3, CN II-XII intact Psychiatric exam: Present: normal affect, normal mood Skin exam: Present: warm, dry, intact, normal color. Absent: rash Course Vital Signs 01/14/20 21:36 Temperature 98.1 F Pulse Rate 81 Respiratory 16 Rate Blood Pressure 146/68 O2 Sat by Pulse 97 Oximetry - Reevaluation(s) Reevaluation #1: 01/14/20 22:46 Medical record is reviewed Reevaluation #2: 01/14/20 22:46 Patient without chest pain currently Reevaluation #3: 01/14/20 22:46 Spoke patient regarding findings, questions answered Chest Pain MDM - MDM 69 female to the ER with chest pain atypical in nature, patient be admitted for cardiac observation Critical Care Time Critical Care Time: Yes Total Critical Care Time: 31 Disposition Clinical Impression: Chest pain Disposition: ADMITTED IP TO THIS HOSP Condition: Undetermined Instructions (If sedation given, give patient instructions): Chest Pain (ED) Is patient prescribed a controlled substance at d/c from ED?: No Referrals: Chase Vu DO [Primary Care Provider] - 1-2 days
[2020-01-14 21:46] VITALS: TEMP 98.1
[2020-01-14 21:58] LABS: Basophils # (A) 0.1 k/uL (0-0.2); Basophils % (A) 1 %; Eosinophils # (A) 0.1 k/uL (0-0.7); Eosinophils % (A) 2 %; HCT 44.6 % (34.0-46.0); HGB 14.1 gm/dL (11.4-16.0); Lymphocytes # (A) 1.5 k/uL (1.0-4.8); Lymphocytes % (A) 22 %; MCH 29.7 pg (25.0-35.0); MCHC 31.6 g/dL (31.0-37.0); MCV 93.9 fL (80.0-100.0); Mean Platelet Volume 7.7; Monocytes # (A) 0.4 k/uL (0-1.0); Monocytes % (A) 6 %; Neutrophils # (A) 4.4 k/uL (1.3-7.7); Neutrophils % (A) 67 %; Platelet Count 228 k/uL (150-450); RBC 4.75 m/uL (3.80-5.40); RDW 13.1 % (11.5-15.5); WBC 6.5 k/uL (3.8-10.6)
[2020-01-14 22:07] LABS: ALT 36 U/L (4-34); AST 42 U/L (14-36); African American GFR (CKD) >90 (>60 ml/min/1.73 sqM); Alkaline Phosphatase 90 U/L (38-126); Anion Gap 3 mmol/L; Blood Urea Nitrogen 22 mg/dL (7-17); Calcium 8.8 mg/dL (8.4-10.2); Carbon Dioxide 32 mmol/L (22-30); Chloride 104 mmol/L (98-107); Glucose 137 mg/dL (74-99); Magnesium 2.2 mg/dL (1.6-2.3); Non-African American GFR(CKD) >90 (>60 ml/min/1.73 sqM); Potassium 3.7 mmol/L (3.5-5.1); Sodium 139 mmol/L (137-145); Total Bilirubin 0.3 mg/dL (0.2-1.3); Total Protein 6.7 g/dL (6.3-8.2)
[2020-01-14 22:11] LABS: INR 0.9 (<1.2); Partial Thromboplastin Time 25.3 sec (22.0-30.0); Prothrombin Time 9.7 sec (9.0-12.0)
--- NOTE | 2020-01-14 22:16 | XR ---
EXAMINATION TYPE: XR chest 2V DATE OF EXAM: 01/14/2020 COMPARISON: 12/22/2019 HISTORY: Chest pain TECHNIQUE: 2 views FINDINGS: Heart and mediastinum are normal. Lungs are clear. Diaphragm is normal. There are chest leads. IMPRESSION: No active cardiopulmonary disease. No change.
[2020-01-15 05:35] LABS: Cholesterol 164 mg/dL (<200); HDL Cholesterol 45 mg/dL (40-60); LDL Cholesterol,Calculated 75 mg/dL (0-99); Triglycerides 219 mg/dL (<150)
[2020-01-15] MEDS ORDERED: ASPIRIN 325 MG TAB PO SCH (09:00)
[2020-01-15] MEDS ORDERED: DOCUSATE 100 MG CAP PO PRN (10:16)
[2020-01-15] MEDS ORDERED: clonazePAM 1 MG TAB PO PRN (10:16)
[2020-01-15] MEDS ORDERED: PARoxetine 20 MG TAB PO SCH (10:30)
[2020-01-15] MEDS ORDERED: amLODIPine 5 MG TAB PO SCH (10:30)
[2020-01-15] MEDS ORDERED: FAMOTIDINE 20 MG TAB PO SCH (10:30)
[2020-01-15] MEDS ORDERED: PREGABALIN 100 MG CAP PO SCH (10:30)
[2020-01-15] MEDS: CLOPIDOGREL 75 MG TAB PO SCH (10:35)
[2020-01-15 10:57] VITALS: BP 145/73; PULSE 86; RESP 18
--- NOTE | 2020-01-15 12:29 | CONS ---
CONSULTATION Mrs. Neri is a 69-year-old female who presented with symptoms of chest discomfort. Yesterday, she was sitting when she had a hard chest discomfort in the middle of the chest that lasted for few seconds associated with mild dyspnea and no other symptoms. She checked her blood pressure. Her blood pressure was elevated. Because of that, she came into the emergency room. At the time of my evaluation, she is pain free. The patient was in the hospital in early December of this year and underwent a myocardial perfusion imaging that revealed no evidence of inducible ischemia. Her left ventricular systolic function is preserved. Her activity is limited because of arthritic pain. The patient has no prior documented history of obstructive coronary artery disease. She has a history of hyperlipidemia and hypertension and unfortunately continues to smoke. She has no history of diabetes. She has a family history of premature coronary artery disease. She has no significant peripheral edema. No PND, orthopnea. No dizziness, palpitation. No syncope. MEDICATIONS: Klonopin, Norvasc 5 mg daily, Lyrica, pravastatin 20 mg daily, potassium, Paxil, Pepcid, Plavix 75 mg daily, vitamin C, vitamin D, and Fosamax. REVIEW OF SYSTEMS: RESPIRATORY system: She has no documented history of recent wheezing or cough, but she has some dyspnea and chronic tobacco use. GI system: No recent GI bleeding. No peptic ulcer disease. No nausea. No vomiting. system: No dysuria or hematuria. NERVOUS SYSTEM: No seizure. PHYSICAL EXAMINATION: She is a 69-year-old female, alert, oriented, in no apparent distress. Blood pressure 135/80 with a heart rate in the 80s. HEAD: Normocephalic. Eyes: Sclerae anicteric. NECK good upstroke. No bruit. No jugular venous distention. LUNGS: Clear to auscultation. HEART: Regular rate and rhythm, S1, S2. No S3. No rub. No gallop. ABDOMEN: Soft. Nontender. Positive bowel sounds. No organomegaly. EXTREMITIES: No edema. Intact distal pulses. LAB DATA: BUN and creatinine of 22 and 0.64. Troponin less than 0.012 for 3 samples. AST of 42, ALT of 36, cholesterol 164, LDL of 75, lipase 664, hemoglobin of 14.1. EKG revealed a sinus mechanism, normal axis and intervals. No acute changes. Chest x-ray shows no acute infiltrate. IMPRESSION: 1. Chest discomfort, atypical for ischemic heart disease probably noncardiac in etiology. The patient had a recent myocardial perfusion imaging that revealed no evidence of inducible ischemia. 2. Elevated lipase with no significant abnormality on the physical examination to suggest pancreatitis. 3. History of chronic tobacco use. 4. History of hyperlipidemia. 5. Hypertension. 6. Osteoarthritis. RECOMMENDATIONS: From the cardiac standpoint, I will continue on the present regimen. I do not see any indication for further cardiac workup at this time. She will undergo evaluation for the etiology of the elevated lipases. She has an appointment to follow up in the office next week and I have asked her to maintain the appointment. Please feel free to call us for any questions. Thank you for this consult. ELISEO / JOSE: [id number] /
[2020-01-15] MEDS ORDERED: RX INFO: IV CONTRAST WAS GIVEN 1 EACH MISC MISCELLANE PRN (13:28)
--- NOTE | 2020-01-15 15:51 | P.HPIM ---
History of Present Illness H&P Date: 01/15/20 Chief Complaint: Chest pressure History of presenting complaint: This is a pleasant [address] Vu. Chronic stable medical conditions include fibromyalgia, GERD, essential hypertension, osteoarthritis, parathyroid adenoma, varicose veins, peripheral neuropathy. Patient had an episode yesterday she felt as of symptoms along with chest protocol in the sweat some shortness of breath lasted for a few minutes. [place] anxious. Patient had been here in the hospital about 3 weeks ago. With chest pain, underwent nuclear stress test that was negative for ischemia. Patient's been taking medications for anxiety for a long time. Does not sleep well. Denies any leg swelling. Symptoms have gone. Review of systems: GEN.: Tired EYES: None HEENT: None NECK: None RESPIRATORY: As above CARDIOVASCULAR: As above GASTROINTESTINAL: None GENITOURINARY: None MUSCULOSKELETAL: Joint pains LYMPHATICS: None HEMATOLOGICAL: None PSYCHIATRY: Anxious NEUROLOGICAL: Not sleeping well Past medical history to include: Fibromyalgia, GERD, hypertension, osteoarthritis, parathyroid adenoma, osteoporosis, mild memory impairment, varicose veins, Social history: Lives alone. Smoked up to 2 packs a day not on to half a pack a day-smoking for 42 years. Alcohol rarely. Physical examination: VITAL SIGNS: 98.1, 81, 16, 146/68, 97% on room air GENERAL: BMI 27.5, sitting up, anxious. EYES: Pupils equal. Conjunctiva normal. HEENT: External appearance of nose and ears normal, oral cavity grossly normal. NECK: JVD not raised; masses not palpable. HEART: First and second heart sounds are normal; no edema. LUNGS: Respiratory rate normal; clear to auscultation. ABDOMEN: Soft, nontender, liver spleen not palpable, no masses palpable. PSYCH: Alert and oriented x3; mood and affect anxiousl. MUSCULAR skeletal: Evidence of OA NEUROLOGICAL: Cranial nerves grossly intact; no facial asymmetry, power and sensation grossly intact. LYMPHATICS: No lymph nodes palpable in the axilla and neck INVESTIGATIONS, reviewed in the clinical context: White count 6.5 hemoglobin 14.1 platelets 228 potassium 3.7 creatinine 0.64 Troponin I less than 0.0123, LDL 75 EKG tracing personally reviewed by me-normal sinus rhythm Chest x-ray x-ray-no infiltrates Assessment: -This patient presented with an episode lasting for a few minutes chest heaviness sulcus of breath anxious. Patient has been having anxiety for a long time. Does take medication for the same. Just 3 weeks ago had a negative nuclear stress test. This was possibly a panic attack. Get a cardiology opinio n -Chronic fibromyalgia -GERD -Essential hypertension -Mild cognitive impairment -Primary osteoarthritis -Parathyroid adenoma -Chronic gait dysfunction uses a cane -Varicose veins -Anxiety and controlled with depression -Chronic nicotine dependence patient cigarette smoker Plan: Serial cardiac enzymes and negative. Cardiology is consulted. Home medications were reviewed. Patient to have a negative nuclear stress test 3 weeks ago. Not a computed tomography scan of the chest to rule out PE though felt to be unlikely. Care was discussed with the patient. Past Medical History Past Medical History: CVA/TIA, Eye Disorder, Fibromyalgia, GERD/Reflux, H ypertension, Memory Impairment, Osteoarthritis (OA), Thyroid Disorder Additional Past Medical History / Comment(s): MIGRAINES. POSS TIA IN PAST. PARATHYROID ADENOMA. OSTEOPOROSIS. OCC VERTIGO. MILD MEMORY IMPAIRMENT AT TIMES. WALKS W/ CANE. VARICOSE VEINS. fatigue History of Any Multi-Drug Resistant Organisms: None Reported Past Surgical History: Hysterectomy, Tonsillectomy, Tubal Ligation Additional Past Surgical History / Comment(s): SURG LT EYE 1974 FOR DB VISION. EXC CATARACTS YAYO. COLONOSCOPY., thyroidectomy Past Anesthesia/Blood Transfusion Reactions: No Reported Reaction Past Psychological History: Anxiety, Depression Smoking Status: Current every day smoker Past Alcohol Use History: Rare Past Drug Use History: None Reported - Past Family History Mother Family Medical History: Cancer Additional Family Medical History / Comment(s): breast Father Family Medical History: Deep Vein Thrombosis (DVT) Additional Family Medical History / Comment(s): Diabetes runs on father's side of family. Medications and Allergies Home Medications Medication Instructions Recorded Confirmed Type Alendronate Sodium [Fosamax] 70 mg PO WE 04/04/16 01/14/20 History Clopidogrel [Plavix] 75 mg PO DAILY 04/04/16 01/14/20 History PARoxetine HCL [Paxil] 60 mg PO DAILY 04/04/16 01/14/20 History Potassium Chloride [Klor-Con 20] 20 meq PO BID 04/04/16 01/14/20 History Pravastatin Sodium [Pravachol] 20 mg PO HS 04/04/16 01/14/20 History Vitamin B Complex 1 cap PO DAILY 04/04/16 01/14/20 History clonazePAM [KlonoPIN] 1 mg PO QID PRN 04/04/16 01/14/20 History Ergocalciferol (Vitamin D2) 50,000 unit PO Q60D 06/14/16 01/14/20 History [Vitamin D2] Calcium Carb-Vit D 500Mg-200Un 1 tab PO DAILY 08/02/16 01/14/20 History [Oscal 500+D] Ascorbic Acid [Vitamin C] 500 mg PO DAILY 08/03/16 01/14/20 History amLODIPine [Norvasc] 5 mg PO DAILY 08/03/16 01/14/20 History Docusate Sodium [Dok] 100 mg PO DAILY PRN 12/22/19 01/14/20 History Famotidine [Pepcid] 20 mg PO BID 12/22/19 01/14/20 History Pregabalin [Lyrica] 100 mg PO BID 12/22/19 01/14/20 History Allergies Allergy/AdvReac Type Severity Reaction Status Date / Time ammonium alum [From Carmex] Allergy Swelling Verified 01/14/20 22:20 camphor [From Carmex] Allergy Swelling Verified 01/14/20 22:20 menthol [From Carmex] Allergy Swelling Verified 01/14/20 22:20 oxybutynin Allergy Unknown Verified 01/14/20 22:20 phenol [From Carmex] Allergy Swelling Verified 01/14/20 22:20 salicylic acid [From Carmex] Allergy Swelling Verified 01/14/20 22:20 Physical Exam Vitals: Vital Signs Temp Pulse Resp BP Pulse Ox 01/15/20 08:01 87 16 136/86 99 01/15/20 06:00 74 16 137/67 94 L 01/15/20 04:00 87 16 144/71 92 L 01/15/20 03:00 16 148/73 01/15/20 02:00 16 142/69 01/15/20 01:00 16 93 L 01/15/20 00:00 79 16 139/80 96 01/14/20 23:00 81 18 146/74 01/14/20 21:36 98.1 F 81 16 146/68 97 Intake and Output 01/14/20 01/15/20 01/15/20 22:59 06:59 14:59 Other: Weight 74.843 kg Results CBC & Chem 7: 01/14/20 21:49 01/14/20 21:49 Labs: Abnormal Lab Results - Last 24 Hours (Table) 01/14/20 01/15/20 Range/Units 21:49 03:48 Carbon Dioxide 32 H (22-30) mmol/L BUN 22 H (7-17) mg/dL Glucose 137 H (74-99) mg/dL AST 42 H (14-36) U/L ALT 36 H (4-34) U/L Triglycerides 219 H (<150) mg/dL Lipase 664 H (23-300) U/L
--- NOTE | 2020-01-15 15:53 | CT ---
EXAMINATION TYPE: CT angio chest DATE OF EXAM: 01/15/2020 COMPARISON: 07/31/2016 HISTORY: Mid chest pressure. CT DLP: 267.1 mGycm Automated exposure control for dose reduction was used. CONTRAST: Performed with IV Contrast, patient injected with 100 mL of Isovue 370. There are 3-D post processed images. There is some mild pleural thickening at the lung apices consistent with scarring. There is minimal e mphysema. There is no evidence of a pulmonary mass. There is mild subsegmental atelectasis at the pos terior lung bases. There is no pleural effusion. Heart size is normal. There is normal contrast opacification of the pulmonary arteries. There are no filling defects. Thora cic aorta is intact without evidence of aneurysm or dissection. There is very small anterior pericard ial effusion. There is spurring in the thoracic spine. I see no bony destructive process. There is 2 cm low-density right adrenal mass suggestive of benign disease and not significantly different than o ld exam. IMPRESSION: There is improvement in the atelectasis at the lung bases compared to old exam. There is very small p ericardial effusion unchanged. No evidence of pulmonary embolism.
--- NOTE | 2020-01-15 19:50 | P.DS ---
Providers Date of admission: 01/14/20 21:38 Expected date of discharge: 01/15/20 Attending physician: Pako Gregorio Consults: 01/14/20 21:37 Consult Physician Urgent Consulting Provider: Vinny Larson Consult Reason/Comments: cp Do you want consulting provider notified?: Yes Primary care physician: [facility] Course: Chief Complaint: Chest pressure History of presenting complaint: This is a pleasant [address] Vu. Chronic stable medical conditions include fibromyalgia, GERD, essential hypertension, osteoarthritis, parathyroid adenoma, varicose veins, peripheral neuropathy. Patient had an episode yesterday she felt as of symptoms along with chest protocol in the sweat some shortness of breath lasted for a few minutes. [place] anxious. Patient had been here in the hospital about 3 weeks ago. With chest pain, underwent nuclear stress test that was negative for ischemia. Patient's been taking medications for anxiety for a long time. Does not sleep well. Denies any leg swelling. Symptoms have gone. Patient had a nuclear stress test 3 weeks ago that was negative. Pulmonary embolism was ruled out. It was felt to be panic attack. Patient has not been sleeping well. Patient counseled about the same. At length. Patient counseled about smoking Discussion and discharge planning more than 35 minutes Consultation: Dr. Bernardo Larson from cardiology Physical examination: VITAL SIGNS: 98.1, 86, 18, 145/73, 96% room air GENERAL: Sitting up, anxious EYES: Pupils equal. Conjunctiva normal. NECK: JVD not raised; masses not palpable. HEART: First and second heart sounds are normal; no edema. LUNGS: Respiratory rate normal; clear to auscultation. ABDOMEN: Soft, nontender, liver spleen not palpable, no masses palpable. PSYCH: Alert and oriented x3; mood and affect anxiousl. MUSCULAR skeletal: Evidence of OA INVESTIGATIONS, reviewed in the clinical context: White count 6.5 hemoglobin 14.1 platelets 228 potassium 3.7 creatinine 0.64 Troponin I less than 0.0123, LDL 75 EKG tracing personally reviewed by me-normal sinus rhythm Chest x-ray x-ray-no infiltrates LDL 75 Assessment: -possibly a panic attack. POA -Chronic insomnia from medical conditions -Chronic fibromyalgia -GERD -Essential hypertension -Mild cognitive impairment -Primary osteoarthritis -Parathyroid adenoma -Chronic gait dysfunction uses a cane -Varicose veins -Anxiety and controlled with depression -Chronic nicotine dependence patient cigarette smoker -Mildly elevated lipase-not of any clinical significance Disposition: Home Patient Condition at Discharge: Good Plan - Discharge Summary Discharge Rx Participant: No New Discharge Prescriptions: New Aspirin 81 mg PO DAILY chew Continue Potassium Chloride [Klor-Con 20] 20 meq PO BID Clopidogrel [Plavix] 75 mg PO DAILY Alendronate Sodium [Fosamax] 70 mg PO WE clonazePAM [KlonoPIN] 1 mg PO QID PRN PRN Reason: Anxiety Vitamin B Complex 1 cap PO DAILY Pravastatin Sodium [Pravachol] 20 mg PO HS PARoxetine HCL [Paxil] 60 mg PO DAILY Ergocalciferol (Vitamin D2) [Vitamin D2] 50,000 unit PO Q60D Calcium Carb-Vit D 500Mg-200Un [Oscal 500+D] 1 tab PO DAILY amLODIPine [Norvasc] 5 mg PO DAILY Ascorbic Acid [Vitamin C] 500 mg PO DAILY Famotidine [Pepcid] 20 mg PO BID Pregabalin [Lyrica] 100 mg PO BID Docusate Sodium [Dok] 100 mg PO DAILY PRN PRN Reason: Constipation Discharge Medication List Alendronate Sodium [Fosamax] 70 mg PO WE 04/04/16 [History] Clopidogrel [Plavix] 75 mg PO DAILY 04/04/16 [History] PARoxetine HCL [Paxil] 60 mg PO DAILY 04/04/16 [History] Potassium Chloride [Klor-Con 20] 20 meq PO BID 04/04/16 [History] Pravastatin Sodium [Pravachol] 20 mg PO HS 04/04/16 [History] Vitamin B Complex 1 cap PO DAILY 04/04/16 [History] clonazePAM [KlonoPIN] 1 mg PO QID PRN 04/04/16 [History] Ergocalciferol (Vitamin D2) [Vitamin D2] 50,000 unit PO Q60D 06/14/16 [History] Calcium Carb-Vit D 500Mg-200Un [Oscal 500+D] 1 tab PO DAILY 08/02/16 [History] Ascorbic Acid [Vitamin C] 500 mg PO DAILY 08/03/16 [History] amLODIPine [Norvasc] 5 mg PO DAILY 08/03/16 [History] Docusate Sodium [Dok] 100 mg PO DAILY PRN 12/22/19 [History] Famotidine [Pepcid] 20 mg PO BID 12/22/19 [History] Pregabalin [Lyrica] 100 mg PO BID 12/22/19 [History] Aspirin 81 mg PO DAILY chew 01/15/20 [Rx] Follow up Appointment(s)/Referral(s): Cardiology, [Other] - 1 Week Chase Vu DO [Primary Care Provider] - 1-2 days Patient Instructions/Handouts: Chest Pain (ED) Discharge Disposition: HOME SELF-CARE
[2020-01-15] MEDS ORDERED: PRAVASTATIN SODIUM 20 MG TAB PO SCH (21:00)
[2020-01-15] MEDS ORDERED: POTASSIUM CHLORIDE ER 20 MEQ TAB.ER PO SCH (21:00)
[2020-01-16] MEDS ORDERED: ASPIRIN 81 MG PO SCH (09:00)
[2020-01-16] MEDS ORDERED: NON FORMULARY DRUG (Vitamin B Complex [Vitamin B Complex] 1 EACH Capsule) PO SCH (09:00)
== END 2020-01-15 16:54 | disposition home or self-care (01) ==
LOC: EC 21:35 → 3NCARDOBS 21:38
PROVIDERS: ADMIT Hospitalist; ATTEND Hospitalist
DX: R07.9 Chest pain, unspecified (principal); D35.1 Benign neoplasm of parathyroid gland; E78.00 Pure hypercholesterolemia, unspecified; E78.5 Hyperlipidemia, unspecified; E89.0 Postprocedural hypothyroidism; F17.210 Nicotine dependence, cigarettes, uncomplicated; F32.9 Major depressive disorder, single episode, unspecified; F41.0 Panic disorder [episodic paroxysmal anxiety]; F51.04 Psychophysiologic insomnia; G31.84 Mild cognitive impairment of uncertain or unknown etiology; G62.9 Polyneuropathy, unspecified; I10 Essential (primary) hypertension; I83.90 Asymptomatic varicose veins of unspecified lower extremity; R06.02 Shortness of breath; K21.9 Gastro-esophageal reflux disease without esophagitis; M19.91 Primary osteoarthritis, unspecified site; M79.7 Fibromyalgia; M81.0 Age-related osteoporosis without current pathological fracture; Z79.02 Long term (current) use of antithrombotics/antiplatelets; Z79.83 Long term (current) use of bisphosphonates; Z79.899 Other long term (current) drug therapy; Z82.49 Family history of ischemic heart disease and other diseases of the circulatory system; Z83.3 Family history of diabetes mellitus; Z86.73 Personal history of transient ischemic attack (TIA), and cerebral infarction without residual deficits; Z90.710 Acquired absence of both cervix and uterus
CPT/HCPCS: 93005 ×2; 99291; 36415; 83880; 80061; 80053; 83690; 83735; 84484 ×2; 85025; 85610; 85730; 71046; 71275; G0378 ×2; Q9967

== ENCOUNTER → 2020-02-28 | Outpatient (CLI) | payer MEDICARE, OTHER ==
--- NOTE | 2020-02-29 14:20 | BD ---
EXAMINATION TYPE: Axial Bone Density DATE OF EXAM: 02/28/2020 COMPARISON: NONE CLINICAL HISTORY: Height: 64 Weight: 162.7 FRAX RISK QUESTIONS: Alcohol (3 or more units per day): no Family History (Parent hip fracture): no Glucocorticoids (More than 3mos): no (Ex: prednisone, prednisolone, methylprednisolone, dexamethasone, and hydrocortisone). History of Fracture in Adulthood: no Secondary Osteoporosis: 1. Type 1 Diabetes: no 2. Hyperthyroidism: no 3. Menopause before 45: no 4. Malnutrition: no 5. Chronic liver disease: no Rheumatoid Arthritis: no Current Tobacco Use: yes RISK FACTORS HISTORY OF: Family History of Osteoporosis: no Active: yes Diet low in dairy products/other sources of calcium: yes Postmenopausal woman: age47 Lost more than 2 inches in height since high school: no MEDICATIONS: vit d, paroxetine, Clonopin, lorica Additional History: EXAM MEASUREMENTS: Bone mineral densitometry was performed using the [employer] System. Bone mineral density as measured about the Lumbar spine is: ----- L1-L4(G/cm2): 0.968 T Score Values are as follows: ----- L2: -2.3 ----- L3: -1.3 ----- L4: -1.9 ----- L1-L4: -1.8 Bone mineral density has: increased 6.9 % since study of: 11.15.2015 Bone mineral density about the R hip (g/cm2): 0.720 Bone mineral density about the L hip (g/cm2): 0.754 T Score values are as follows: -----R Neck: -2.3 -----L Neck: -2.0 -----R Total: -1.7 -----L Total: -1.4 Bone mineral density has: increased 3.7 % since study of: 11.15.2015 IMPRESSION: Osteopenia (T Score between -2.5 and -1). There is slightly increased risk of fracture and the patient may be considered for treatment. Re-Screen 2-5 years. NOTE: T-SCORE=SD OF THE YOUNG ADULT MEAN.
--- NOTE | 2020-03-01 08:41 | MM ---
Reason for exam: screening (asymptomatic). Last mammogram was performed 2 years and 5 months ago. History: Patient is postmenopausal and had first child at age 34. Family history of breast cancer in maternal grandmother and premenopausal breast cancer in mother. Benign left breast needle localization of the left breast, April 02, 2011. Physical Findings: A clinical breast exam by your physician is recommended on an annual basis and results should be correlated with mammographic findings. MG 3D Screening Mammo W/Cad Bilateral CC and MLO view(s) were taken. Prior study comparison: September 18, 2017, bilateral MG 3d screening mammo w/cad. April 22, 2016, bilateral MG 3d screening mammo w/cad. The breast tissue is heterogeneously dense. This may lower the sensitivity of mammography. No significant changes when compared with prior studies. ASSESSMENT: Benign, BI-RAD 2 RECOMMENDATION: Routine screening mammogram of both breasts in 1 year.
== END | disposition home or self-care (01) ==
LOC: RADMAMWWP 14:41
PROVIDERS: ATTEND Family Medicine
DX: Z12.31 Encounter for screening mammogram for malignant neoplasm of breast (principal); M85.80 Other specified disorders of bone density and structure, unspecified site; M81.0 Age-related osteoporosis without current pathological fracture
CPT/HCPCS: 77063; 77067; 77080

== ENCOUNTER 2020-07-25 14:23 | Emergency (ER) | payer MEDICARE, OTHER ==
[2020-07-25 14:38] VITALS: TEMP 98
[2020-07-25] MEDS ORDERED: diphenhydrAMINE 50 MG/ML 1 ML VIAL IVP STA (14:40)
[2020-07-25] MEDS ORDERED: methylPREDNISolone SOD SUCCI 125 MG/2 ML VIAL IV STA (14:40)
[2020-07-25] MEDS ORDERED: SODIUM CHLORIDE 0.9% 1,000 ML IV STA ×2 (14:40→14:42)
[2020-07-25] MEDS ORDERED: FAMOTIDINE 20 MG/2 ML VIAL IV STA (14:40)
[2020-07-25] MEDS ORDERED: IPRATROPIUM-ALBUTEROL 3 ML NEB INHALATION STA (14:41)
[2020-07-25] MEDS ORDERED: SODIUM CHLORIDE 0.9% 500 ML 500 ML IV STA (14:42)
--- NOTE | 2020-07-25 15:24 | ED ---
Allergic Reaction HPI - General Chief complaint: Allergic Reaction Stated complaint: allergic reaction Time Seen by Provider: 07/25/20 14:33 Source: patient, EMS, RN notes reviewed Mode of arrival: EMS Limitations: no limitations - History of Present Illness Initial Comments: This is a 70-year-old female with a history of COPD who is brought in by EMS b ecause of breath and wheezing also she was noted have a rash. This started 3 days ago with respect to the rash and shortness of breath no new medications no new Or softeners detergents or any other known allergens. She has redness and swelling to the face more swelling right than the left no other rash anywhere else at this time. She denies any trouble swallowing. No fevers chills cough no phlegm production she does have some exertional dyspnea MD Complaint: allergic reaction, other - Related Data Home Medications Medication Instructions Recorded Confirmed Alendronate Sodium [Fosamax] 70 mg PO WE 04/04/16 07/25/20 Clopidogrel [Plavix] 75 mg PO DAILY 04/04/16 07/25/20 PARoxetine HCL [Paxil] 60 mg PO DAILY 04/04/16 07/25/20 Potassium Chloride [Klor-Con 20] 20 meq PO BID@0900,1700 04/04/16 07/25/20 Pravastatin Sodium [Pravachol] 20 mg PO HS 04/04/16 07/25/20 Vitamin B Complex 1 cap PO DAILY 04/04/16 07/25/20 clonazePAM [KlonoPIN] 1 mg PO QID PRN 04/04/16 07/25/20 Ergocalciferol (Vitamin D2) 50,000 unit PO Q60D 06/14/16 07/25/20 [Vitamin D2] Calcium Carb-Vit D 500Mg-5Mcg 1 tab PO DAILY 08/02/16 07/25/20 [Oscal 500+D 5 Mcg (200 Iu)] Ascorbic Acid [Vitamin C] 500 mg PO DAILY 08/03/16 07/25/20 amLODIPine [Norvasc] 5 mg PO DAILY 08/03/16 07/25/20 Docusate Sodium [Dok] 100 mg PO DAILY PRN 12/22/19 07/25/20 Famotidine [Pepcid] 20 mg PO BID@0900,1700 12/22/19 07/25/20 Pregabalin [Lyrica] 100 mg PO BID@0900,1700 12/22/19 07/25/20 Previous Rx's Medication Instructions Recorded Aspirin 81 mg PO DAILY chew 01/15/20 Ipratropium/Albuterol Sulfate 2 puff INHALATION QID #1 inhaler 07/25/20 [Combivent Respimat Inhaler] predniSONE [Deltasone] 20 mg PO BID #10 tab 07/25/20 Allergies Allergy/AdvReac Type Severity Reaction Status Date / Time ammonium alum [From Carmex] Allergy Swelling Verified 07/25/20 17:26 camphor [From Carmex] Allergy Swelling Verified 07/25/20 17:26 menthol [From Carmex] Allergy Swelling Verified 07/25/20 17:26 oxybutynin Allergy Unknown Verified 07/25/20 17:26 phenol [From Carmex] Allergy Swelling Verified 07/25/20 17:26 salicylic acid [From Carmex] Allergy Swelling Verified 07/25/20 17:26 Review of Systems ROS Statement: Those systems with pertinent positive or pertinent negative responses have been documented in the HPI. ROS Other: All systems not noted in ROS Statement are negative. Past Medical History Past Medical History: CVA/TIA, Eye Disorder, Fibromyalgia, GERD/Reflux, Hypertension, Memory Impairment, Osteoarthritis (OA), Thyroid Disorder Additional Past Medical History / Comment(s): MIGRAINES. POSS TIA IN PAST. PARATHYROID ADENOMA. OSTEOPOROSIS. OCC VERTIGO. MILD MEMORY IMPAIRMENT AT TIMES. WALKS W/ CANE. VARICOSE VEINS. fatigue History of Any Multi-Drug Resistant Organisms: None Reported Past Surgical History: Hysterectomy, Tonsillectomy, Tubal Ligation Additional Past Surgical History / Comment(s): SURG LT EYE 1974 FOR DB VISION. EXC CATARACTS YAYO. COLONOSCOPY., thyroidectomy Past Anesthesia/Blood Transfusion Reactions: No Reported Reaction Past Psychological History: Anxiety, Depression Smoking Status: Current every day smoker Past Alcohol Use History: Rare Past Drug Use History: None Reported - Past Family History Mother Family Medical History: Cancer Additional Family Medical History / Comment(s): breast Father Family Medical History: Deep Vein Thrombosis (DVT) Additional Family Medical History / Comment(s): Diabetes runs on father's side of family. General Exam - General Exam Comments Initial Comments: This is a well-developed well-nourished awake alert oriented 3 female Limitations: no limitations General appearance: alert, anxious Head exam: Present: atraumatic, other (Facial erythema seen more swelling right than the left some evidence of facial edema.) ENT exam: Present: mucous membranes dry Neck exam: Present: normal inspection, full ROM, other (No stridor JVD or bruits). Absent: tenderness, meningismus, lymphadenopathy Respiratory exam: Present: wheezes, decreased breath sounds Course Vital Signs 07/25/20 07/25/20 07/25/20 14:32 15:54 16:28 Temperature 98.0 F Pulse Rate 91 811 H Respiratory 18 8 L 18 Rate Blood Pressure 140/68 129/88 O2 Sat by Pulse 96 96 Oximetry 07/25/20 07/25/20 07/25/20 17:06 17:13 17:21 Temperature Pulse Rate 86 73 75 Respiratory 18 16 16 Rate Blood Pressure 152/71 O2 Sat by Pulse 95 Oximetry - Reevaluation(s) Reevaluation #1: 07/25/20 18:52 Patient is feeling improved at this time the presentation is consistent with a COPD exacerbation she will be placed on a short course of steroids and an inhaler she had been using Primatene Mist he has not been working Medical Decision Making - Medical Decision Making Patient is feeling improved she will be discharged on appropriate medication she is follow-up with her doctor and return when necessary - Lab Data Result diagrams: 07/25/20 15:40 07/25/20 15:40 Lab Results 07/25/20 07/25/20 Range/Units 15:40 15:40 WBC 7.0 (3.8-10.6) k/uL RBC 4.57 (3.80-5.40) m/uL Hgb 13.8 (11.4-16.0) gm/dL Hct 42.6 (34.0-46.0) % MCV 93.2 (80.0-100.0) fL MCH 30.2 (25.0-35.0) pg MCHC 32.5 (31.0-37.0) g/dL RDW 13.5 (11.5-15.5) % Plt Count 204 (150-450) k/uL MPV 8.3 Neutrophils % 71 % Lymphocytes % 18 % Monocytes % 6 % Eosinophils % 1 % Basophils % 0 % Neutrophils # 5.0 (1.3-7.7) k/uL Lymphocytes # 1.3 (1.0-4.8) k/uL Monocytes # 0.4 (0-1.0) k/uL Eosinophils # 0.0 (0-0.7) k/uL Basophils # 0.0 (0-0.2) k/uL Sodium 138 (137-145) mmol/L Potassium 3.9 (3.5-5.1) mmol/L Chloride 103 (98-107) mmol/L Carbon Dioxide 30 (22-30) mmol/L Anion Gap 5 mmol/L BUN 16 (7-17) mg/dL Creatinine 0.53 (0.52-1.04) mg/dL Est GFR (CKD-EPI)AfAm >90 (>60 ml/min/1.73 sqM) Est GFR (CKD-EPI)NonAf >90 (>60 ml/min/1.73 sqM) Glucose 98 (74-99) mg/dL Calcium 8.8 (8.4-10.2) mg/dL Magnesium 2.0 (1.6-2.3) mg/dL Total Bilirubin 0.4 (0.2-1.3) mg/dL AST 31 (14-36) U/L ALT 27 (4-34) U/L Alkaline Phosphatase 88 (38-126) U/L Total Protein 6.3 (6.3-8.2) g/dL Albumin 3.6 (3.5-5.0) g/dL - Radiology Data Radiology results: report reviewed (Imaging reviewed no acute findings.), image reviewed Disposition Clinical Impression: Allergic reaction, COPD exacerbation Disposition: HOME SELF-CARE Condition: Good Instructions (If sedation given, give patient instructions): COPD (Chronic Obstructive Pulmonary Disease) (ED), Allergies (ED) Prescriptions: Ipratropium/Albuterol Sulfate [Combivent Respimat Inhaler] 2 puff INHALATION QID #1 inhaler predniSONE [Deltasone] 20 mg PO BID #10 tab Is patient prescribed a controlled substance at d/c from ED?: No Referrals: Chase Vu DO [Primary Care Provider] - 1-2 days
[2020-07-25 15:57] LABS: Basophils % (A) 0 %; Eosinophils % (A) 1 %; HCT 42.6 % (34.0-46.0); HGB 13.8 gm/dL (11.4-16.0); Lymphocytes # (A) 1.3 k/uL (1.0-4.8); Lymphocytes % (A) 18 %; MCH 30.2 pg (25.0-35.0); MCHC 32.5 g/dL (31.0-37.0); MCV 93.2 fL (80.0-100.0); Mean Platelet Volume 8.3; Monocytes # (A) 0.4 k/uL (0-1.0); Monocytes % (A) 6 %; Neutrophils % (A) 71 %; Platelet Count 204 k/uL (150-450); RBC 4.57 m/uL (3.80-5.40); RDW 13.5 % (11.5-15.5)
[2020-07-25 16:13] LABS: ALT 27 U/L (4-34); AST 31 U/L (14-36); African American GFR (CKD) >90 (>60 ml/min/1.73 sqM); Albumin 3.6 g/dL (3.5-5.0); Alkaline Phosphatase 88 U/L (38-126); Anion Gap 5 mmol/L; Blood Urea Nitrogen 16 mg/dL (7-17); Calcium 8.8 mg/dL (8.4-10.2); Carbon Dioxide 30 mmol/L (22-30); Chloride 103 mmol/L (98-107); Glucose 98 mg/dL (74-99); Non-African American GFR(CKD) >90 (>60 ml/min/1.73 sqM); Potassium 3.9 mmol/L (3.5-5.1); Sodium 138 mmol/L (137-145); Total Bilirubin 0.4 mg/dL (0.2-1.3); Total Protein 6.3 g/dL (6.3-8.2)
[2020-07-25 17:07] VITALS: BP 152/71
[2020-07-25 17:14] VITALS: RESP 16
[2020-07-25 17:21] VITALS: PULSE 75
--- NOTE | 2020-07-25 18:20 | XR ---
EXAMINATION TYPE: XR chest 2V DATE OF EXAM: 07/25/2020 COMPARISON: January 14, 2020 HISTORY: Short of breath TECHNIQUE: FINDINGS: Heart and mediastinum are normal. Lungs are clear of infiltrate. There is no heart failure. There are no hilar masses. Costophrenic angles are clear. Bony thorax is intact. IMPRESSION: No active cardiopulmonary disease. No adverse change.
== END 2020-07-25 19:09 | disposition home or self-care (01) ==
LOC: EC 14:23
DX: J44.1 Chronic obstructive pulmonary disease with (acute) exacerbation (principal); T78.40XA Allergy, unspecified, initial encounter; F17.200 Nicotine dependence, unspecified, uncomplicated; I10 Essential (primary) hypertension; K21.9 Gastro-esophageal reflux disease without esophagitis; M19.90 Unspecified osteoarthritis, unspecified site; Z79.82 Long term (current) use of aspirin; Z79.899 Other long term (current) drug therapy; Z86.73 Personal history of transient ischemic attack (TIA), and cerebral infarction without residual deficits; F41.9 Anxiety disorder, unspecified; F32.9 Major depressive disorder, single episode, unspecified
CPT/HCPCS: 36415; 94640; 80053; 83735; 85025; 71046; 99285; 96374; 96375; 96361; J1200; J2930

== ENCOUNTER 2020-12-01 16:23 | Emergency (ER) | payer MEDICARE, OTHER ==
[2020-12-01] MEDS ORDERED: MECLIZINE 12.5 MG TAB PO STA ×3 (16:59→22:22)
[2020-12-01] MEDS ORDERED: SODIUM CHLORIDE 0.9% 1,000 ML IV STA (16:59)
[2020-12-01 17:40] LABS: ALT 21 U/L (4-34); AST 26 U/L (14-36); African American GFR (CKD) >90 (>60 ml/min/1.73 sqM); Alkaline Phosphatase 91 U/L (38-126); Anion Gap 7 mmol/L; Blood Urea Nitrogen 17 mg/dL (7-17); Calcium 9.3 mg/dL (8.4-10.2); Carbon Dioxide 28 mmol/L (22-30); Chloride 103 mmol/L (98-107); Glucose 104 mg/dL (74-99); Non-African American GFR(CKD) >90 (>60 ml/min/1.73 sqM); Potassium 3.9 mmol/L (3.5-5.1); Sodium 138 mmol/L (137-145); Total Bilirubin 0.3 mg/dL (0.2-1.3); Total Protein 6.5 g/dL (6.3-8.2)
[2020-12-01 17:41] LABS: Basophils % (A) 0 %; Eosinophils % (A) 1 %; HCT 44.4 % (34.0-46.0); HGB 14.7 gm/dL (11.4-16.0); Lymphocytes # (A) 1.4 k/uL (1.0-4.8); Lymphocytes % (A) 19 %; MCH 31.7 pg (25.0-35.0); MCHC 33.1 g/dL (31.0-37.0); MCV 95.7 fL (80.0-100.0); Mean Platelet Volume 8.7; Monocytes # (A) 0.3 k/uL (0-1.0); Monocytes % (A) 3 %; Neutrophils # (A) 5.6 k/uL (1.3-7.7); Neutrophils % (A) 74 %; Platelet Count 219 k/uL (150-450); RBC 4.64 m/uL (3.80-5.40); RDW 13.6 % (11.5-15.5); WBC 7.6 k/uL (3.8-10.6)
[2020-12-01 17:45] LABS: Prothrombin Time 10.5 sec (9.0-12.0)
--- NOTE | 2020-12-01 18:18 | XR ---
EXAMINATION TYPE: XR chest 1V portable DATE OF EXAM: 12/01/2020 COMPARISON: 07/25/2020 HISTORY: Short of breath TECHNIQUE: FINDINGS: There is no heart failure nor confluent pneumonic infiltrate. Costophrenic angles are clear . There are no hilar masses. Bony thorax is intact. IMPRESSION: No active cardiopulmonary disease. No adverse change.
[2020-12-01 18:26] LABS: Appearance,Urine Cloudy (Clear); Bilirubin,Urine Negative (Negative); Blood,Urine Negative (Negative); Budding Yeast,Urine Few /hpf; Color,Urine Yellow; Glucose,Urine (UA) Negative (Negative); Ketones,Urine Negative (Negative); Leukocyte Esterase,Urine Negative (Negative); Mucus,Urine Rare /hpf; Nitrite,Urine Negative (Negative); Protein,Urine Negative (Negative); RBC,Urine 1 /hpf (0-5); Squamous Epithelial Cell,Urine 1 /hpf (0-4); Urobilinogen,Urine <2.0 mg/dL (<2.0); WBC,Urine 1 /hpf (0-5)
--- NOTE | 2020-12-01 21:23 | CT ---
EXAMINATION TYPE: CT brain wo con DATE OF EXAM: 12/01/2020 COMPARISON: 01/02/2011 HISTORY: syncope CT DLP: 1097.8 mGycm Automated exposure control for dose reduction was used. Images obtained of the brain without contrast. There is mild cerebral atrophy. There is no mass effect nor midline shift. There is no sign of intrac ranial hemorrhage. Calvarium is intact. Skull base is intact. There is no evidence of cerebral edema. IMPRESSION: Mild atrophy. No acute intracranial abnormality. No change.
--- NOTE | 2020-12-01 21:47 | CT ---
EXAMINATION TYPE: CT angio head neck DATE OF EXAM: 12/01/2020 COMPARISON: None HISTORY: syncope CT DLP: 409.9 mGycm Automated exposure control for dose reduction was used. CONTRAST: Performed with IV Contrast, patient injected with 65 mL of Isovue 370. Images obtained from the aortic arch to the vertex of the brain with IV contrast. There is arterial flow in the subclavian arteries. There is normal branching pattern of the great ves sels on the aortic arch. There is arterial flow in the vertebral arteries bilaterally. There is arter ial flow in the common internal and external carotid arteries bilaterally. There is wide patency of t he carotid artery bifurcations. There is no evidence of carotid or vertebral artery aneurysm or disse ction. There is arterial flow in the anterior middle and posterior cerebral arteries. There is arterial flow in the vertebrobasilar artery system. There is no evidence of intracranial aneurysm or neovascularit y. There is no mass effect. I see no evidence of intracranial arterial stenosis. There is normal enha ncement of the venous sinuses. IMPRESSION: Negative CT angiogram of the neck. Negative CT angiogram of the brain.
--- NOTE | 2020-12-01 22:26 | ED ---
General Adult HPI - General Chief complaint: Dizziness Stated complaint: vertigo Time Seen by Provider: 12/01/20 16:58 Source: patient Mode of arrival: ambulatory Limitations: no limitations - History of Present Illness Initial comments: I evaluated the patient and she was placed in a room. Patient is a 70-year-old female with past medical history remarkable for vertigo, or myalgia, GERD, hypertension, prior CVA/TIA, thyroid disorder, migraines who presents emergency Department complaining of vertigo. Patient states that the vertigo began yesterday. She does have a history of vertigo but has been multiple years since she last experienced an episode. She is not on medication for it. She describes as a room spinning sensation. She denies any weakness, numbness. She is still able to ambulate but feels a little unsteady. Denies any nausea or vomiting or abdominal pain. Denies any chest pain, shortness of breath. She has no other acute complaints at this time. She is still able to ambulate without difficulty, however she is having a recurrence and sensation at baseline. She presents emergency department today over concern for an acute exacerbation of her vertigo. She has any fevers, chills, cough. Denies any neck stiffness. Denies any headache, difficulty in vision. His no other acute complaints at this time.Patient denies any trauma, falls. She is not on blood thinners. - Related Data Home Medications Medication Instructions Recorded Confirmed Alendronate Sodium [Fosamax] 70 mg PO WE 04/04/16 12/01/20 Clopidogrel [Plavix] 75 mg PO DAILY 04/04/16 12/01/20 PARoxetine HCL [Paxil] 60 mg PO DAILY 04/04/16 12/01/20 Potassium Chloride [Klor-Con 20] 20 meq PO BID 04/04/16 12/01/20 Pravastatin Sodium [Pravachol] 20 mg PO HS 04/04/16 12/01/20 Vitamin B Complex 1 cap PO DAILY 04/04/16 12/01/20 clonazePAM [KlonoPIN] 1 mg PO QID PRN 04/04/16 12/01/20 Ergocalciferol (Vitamin D2) 50,000 unit PO Q60D 06/14/16 12/01/20 [Vitamin D2] Calcium Carb-Vit D 500Mg-5Mcg 1 tab PO DAILY 08/02/16 12/01/20 [Oscal 500+D 5 Mcg (200 Iu)] Ascorbic Acid [Vitamin C] 500 mg PO DAILY 08/03/16 12/01/20 amLODIPine [Norvasc] 5 mg PO DAILY 08/03/16 12/01/20 Famotidine [Pepcid] 20 mg PO BID 12/22/19 12/01/20 Pregabalin [Lyrica] 100 mg PO BID 12/22/19 12/01/20 Albuterol Inhaler [Ventolin Hfa 2 puff INHALATION RT-QID PRN 12/01/20 12/01/20 Inhaler] Align Gummies 2 tab PO DAILY 12/01/20 12/01/20 Previous Rx's Medication Instructions Recorded Aspirin 81 mg PO DAILY chew 01/15/20 Meclizine [Antivert] 25 mg PO BID PRN 7 Days #14 tab 12/01/20 Allergies Allergy/AdvReac Type Severity Reaction Status Date / Time ammonium alum [From Carmex] Allergy Swelling Verified 12/01/20 18:24 camphor [From Carmex] Allergy Swelling Verified 12/01/20 18:24 menthol [From Carmex] Allergy Swelling Verified 12/01/20 18:24 oxybutynin Allergy Unknown Verified 12/01/20 18:24 phenol [From Carmex] Allergy Swelling Verified 12/01/20 18:24 salicylic acid [From Carmex] Allergy Swelling Verified 12/01/20 18:24 Review of Systems ROS Statement: Those systems with pertinent positive or pertinent negative responses have been documented in the HPI. Review of Systems: CONST: Denies fever EYES: Denies blurry vision ENT: Denies nasal congestion C/V: Denies Chest pain RESP: Denies shortness of breath GI: Denies abdominal pain : Denies dysuria SKIN: Denies rash. MSK: Denies joint pain. NEURO: Endorses vertigo. Denies headache ROS Other: All systems not noted in ROS Statement are negative. Past Medical History Past Medical History: CVA/TIA, Eye Disorder, Fibromyalgia, GERD/Reflux, Hypertension, Memory Impairment, Osteoarthritis (OA), Thyroid Disorder Additional Past Medical History / Comment(s): MIGRAINES. POSS TIA IN PAST. PARATHYROID ADENOMA. OSTEOPOROSIS. OCC VERTIGO. MILD MEMORY IMPAIRMENT AT TIMES. WALKS W/ CANE. VARICOSE VEINS. fatigue History of Any Multi-Drug Resistant Organisms: None Reported Past Surgical History: Hysterectomy, Tonsillectomy, Tubal Ligation Additional Past Surgical History / Comment(s): SURG LT EYE 1974 FOR DB VISION. EXC CATARACTS YAYO. COLONOSCOPY., thyroidectomy Past Anesthesia/Blood Transfusion Reactions: No Reported Reaction Past Psychological History: Anxiety, Depression Smoking Status: Current every day smoker Past Alcohol Use History: Rare Past Drug Use History: None Reported - Past Family History Mother Family Medical History: Cancer Additional Family Medical History / Comment(s): breast Father Family Medical History: Deep Vein Thrombosis (DVT) Additional Family Medical History / Comment(s): Diabetes runs on father's side of family. General Exam - General Exam Comments Initial Comments: General: Appears in no acute distress. HEAD: Normal with no signs of head trauma. EYES: PERRLA, EOMI, conjunctiva normal, no discharge. Pupils are 3 mm and equally reactive bilaterally. ENT: Hearing grossly intact, normal oropharynx. RESPIRATORY: Clear breath sounds bilaterally. No wheezes, rales, or rhonchi. C/V: Regular rate and rhythm. S1 and S2 auscultated, no edema, peripheral pulses 2+ and intact throughout ABD: Abd is soft, nontender, nondistended EXT: Normal range of motion, no obvious deformity SKIN: No rashes or lesions observed on exposed skin. NEURO: Alert and oriented x 4. Cranial nerves II-XII intact. No focal sensory or strength deficits. Patient's cerebellar function is intact as evident by normal finger to nose testing, normal [id number] testing. Patient has no dysdiadochokinesia. NIH stroke scale is 0. GCS is 15. Patient is able to ambulate but is unsteady on her feet. Patient is unaffected. Neurological exam is grossly normal. Limitations: no limitations Course Vital Signs 12/01/20 12/01/20 12/01/20 16:33 18:14 20:18 Temperature 98.7 F 97.8 F Pulse Rate 75 79 82 Respiratory 20 20 15 Rate Blood Pressure 129/60 148/69 134/64 O2 Sat by Pulse 98 100 95 Oximetry Medical Decision Making - Medical Decision Making Based on the patient's presentation and physical exam, does appear she is experiencing an exacerbation of her vertigo. She has a history of vertigo, h owever states this is slightly worse in intensity. It has been quite some time since her last episode. She states this been multiple years. Therefore we will obtain cardiac examination addition to treating her for vertigo with meclizine. I do not believe that we need to obtain CT imaging of her head at this time. She was in agreement this plan. Basic laboratory studies will also be obtained in addition to EKG, chest x-ray. She will be connected to continuous cardiac monitoring while she is here. She'll be given a 1 L fluid bolus as well as meclizine for some dramatic improvement. Patient's laboratory studies are remarkable for a negative troponin. Urinalysis is unremarkable. The remainder of labs are unremarkable. EKG revealed no signs of acute ischemia. Chest x-ray showed no acute cardiopulmonary process. On reevaluation, patient still complaining of mild vertiginous symptoms. She still feels unsteady on her feet, despite being able to ambulate. Due to the continuing of her symptoms with minimal improvement, we will obtain a brain CT as well as CT angiography throughout any acute intracranial process per and she was in agreement this plan. She'll be dosed an additional [address] Patient's CT imaging was negative for acute intracranial process. On reeval uation, patient is feeling improved. She states that her vertiginous symptoms are largely improved. She would like to go home. I did inform her the results of the negative workup and imaging. I do believe it is safer to be discharged home and she is freely ambulating is maintaining a normal neurological exam with an NIH stroke scale of 0. She was in agreement with the plan. She is strict return precautions. Patient already has a neurologist and states that she will attempt to call him tomorrow to set up an appointment outpatient. She will be given a prescription for meclizine. I will provide the patient with a prescription for meclizine 25 mg twice a day. I instructed the patient to follow up with their PCP in the next 3 days. I explained that the patient should return to the emergency department if they experience any worsening symptoms. Strict return precautions were discussed with the patient. The patient expressed understanding of these instructions. I answered all questions that the patient had. The patient was discharged home in good condition with their prescriptions and follow up information. - Lab Data Result diagrams: 12/01/20 17:14 12/01/20 17:14 Lab Results 12/01/20 12/01/20 12/01/20 Range/Units 17:14 17:14 17:14 WBC 7.6 (3.8-10.6) k/uL RBC 4.64 (3.80-5.40) m/uL Hgb 14.7 (11.4-16.0) gm/dL Hct 44.4 (34.0-46.0) % MCV 95.7 (80.0-100.0) fL MCH 31.7 (25.0-35.0) pg MCHC 33.1 (31.0-37.0) g/dL RDW 13.6 (11.5-15.5) % Plt Count 219 (150-450) k/uL MPV 8.7 Neutrophils % 74 % Lymphocytes % 19 % Monocytes % 3 % Eosinophils % 1 % Basophils % 0 % Neutrophils # 5.6 (1.3-7.7) k/uL Lymphocytes # 1.4 (1.0-4.8) k/uL Monocytes # 0.3 (0-1.0) k/uL Eosinophils # 0.0 (0-0.7) k/uL Basophils # 0.0 (0-0.2) k/uL PT 10.5 (9.0-12.0) sec INR 1.0 (<1.2) Sodium (137-145) mmol/L Potassium (3.5-5.1) mmol/L Chloride (98-107) mmol/L Carbon Dioxide (22-30) mmol/L Anion Gap mmol/L BUN (7-17) mg/dL Creatinine (0.52-1.04) mg/dL Est GFR (CKD-EPI)AfAm (>60 ml/min/1.73 sqM) Est GFR (CKD-EPI)NonAf (>60 ml/min/1.73 sqM) Glucose (74-99) mg/dL Calcium (8.4-10.2) mg/dL Total Bilirubin (0.2-1.3) mg/dL AST (14-36) U/L ALT (4-34) U/L Alkaline Phosphatase (38-126) U/L Troponin I (0.000-0.034) ng/mL Total Protein (6.3-8.2) g/dL Albumin (3.5-5.0) g/dL Urine Color Yellow Urine Appearance Cloudy H (Clear) Urine pH 7.0 (5.0-8.0) Ur Specific [place] 1.010 (1.001-1.035) Urine Protein Negative (Negative) Urine Glucose (UA) Negative (Negative) Urine Ketones Negative (Negative) Urine Blood Negative (Negative) Urine Nitrite Negative (Negative) Urine Bilirubin Negative (Negative) Urine Urobilinogen <2.0 (<2.0) mg/dL Ur Leukocyte Esterase Negative (Negative) Urine RBC 1 (0-5) /hpf Urine WBC 1 (0-5) /hpf Ur Squamous Epith Cells 1 (0-4) /hpf Urine Mucus Rare H (None) /hpf Urine Yeast (Budding) Few H (None) /hpf 12/01/20 12/01/20 Range/Units 17:14 17:14 WBC (3.8-10.6) k/uL RBC (3.80-5.40) m/uL Hgb (11.4-16.0) gm/dL Hct (34.0-46.0) % MCV (80.0-100.0) fL MCH (25.0-35.0) pg MCHC (31.0-37.0) g/dL RDW (11.5-15.5) % Plt Count (150-450) k/uL MPV Neutrophils % % Lymphocytes % % Monocytes % % Eosinophils % % Basophils % % Neutrophils # (1.3-7.7) k/uL Lymphocytes # (1.0-4.8) k/uL Monocytes # (0-1.0) k/uL Eosinophils # (0-0.7) k/uL Basophils # (0-0.2) k/uL PT (9.0-12.0) sec INR (<1.2) Sodium 138 (137-145) mmol/L Potassium 3.9 (3.5-5.1) mmol/L Chloride 103 (98-107) mmol/L Carbon Dioxide 28 (22-30) mmol/L Anion Gap 7 mmol/L BUN 17 (7-17) mg/dL Creatinine 0.61 (0.52-1.04) mg/dL Est GFR (CKD-EPI)AfAm >90 (>60 ml/min/1.73 sqM) Est GFR (CKD-EPI)NonAf >90 (>60 ml/min/1.73 sqM) Glucose 104 H (74-99) mg/dL Calcium 9.3 (8.4-10.2) mg/dL Total Bilirubin 0.3 (0.2-1.3) mg/dL AST 26 (14-36) U/L ALT 21 (4-34) U/L Alkaline Phosphatase 91 (38-126) U/L Troponin I <0.012 (0.000-0.034) ng/mL Total Protein 6.5 (6.3-8.2) g/dL Albumin 4.0 (3.5-5.0) g/dL Urine Color Urine Appearance (Clear) Urine pH (5.0-8.0) Ur Specific [place] (1.001-1.035) Urine Protein (Negative) Urine Glucose (UA) (Negative) Urine Ketones (Negative) Urine Blood (Negative) Urine Nitrite (Negative) Urine Bilirubin (Negative) Urine Urobilinogen (<2.0) mg/dL Ur Leukocyte Esterase (Negative) Urine RBC (0-5) /hpf Urine WBC (0-5) /hpf Ur Squamous Epith Cells (0-4) /hpf Urine Mucus (None) /hpf Urine Yeast (Budding) (None) /hpf - EKG Data -: EKG Interpreted by Me EKG Comments: 12-lead Electrocardiogram Interpretation Note EKG was reviewed and interpreted by myself. 12-lead ECG performed at 1644 is interpreted by me as revealing normal sinus rhythm at a rate of 77 beats per minute. [place] is normal. CT interval is 132 ms, QRS duration is 84 ms, QTc is 445 ms.. There were no ST or T wave abnormalities to suggest myocardial ischemia or injury. R wave progression across the precordium was satisfactory. By my interpretation this EKG is non-diagnostic for acute ischemia. Disposition Clinical Impression: Vertigo Disposition: HOME SELF-CARE Condition: Good Instructions (If sedation given, give patient instructions): Vertigo (ED) Prescriptions: Meclizine [Antivert] 25 mg PO BID PRN 7 Days #14 tab PRN Reason: Vertigo Is patient prescribed a controlled substance at d/c from ED?: No Referrals: Chase Vu DO [Primary Care Provider] - 1-2 days
[2020-12-01 22:51] VITALS: BP 145/70; PULSE 89; RESP 16; TEMP 98.1
== END 2020-12-01 22:58 | disposition home or self-care (01) ==
LOC: EC 16:23
DX: R42 Dizziness and giddiness (principal); I10 Essential (primary) hypertension; K21.9 Gastro-esophageal reflux disease without esophagitis; M19.90 Unspecified osteoarthritis, unspecified site; M79.7 Fibromyalgia; M81.0 Age-related osteoporosis without current pathological fracture; F32.9 Major depressive disorder, single episode, unspecified; F41.9 Anxiety disorder, unspecified; F17.200 Nicotine dependence, unspecified, uncomplicated; Z79.82 Long term (current) use of aspirin; Z79.02 Long term (current) use of antithrombotics/antiplatelets; Z79.51 Long term (current) use of inhaled steroids; Z79.899 Other long term (current) drug therapy; Z86.73 Personal history of transient ischemic attack (TIA), and cerebral infarction without residual deficits; Z83.3 Family history of diabetes mellitus
CPT/HCPCS: 36415; 93005; 80053; 84484; 85025; 85610; 81001; 71045; 70496; 70450; 70498; 96360; 99285; Q9967